=== PATIENT | female | born 1940 | race Caucasian/White ===

== ENCOUNTER 2016-12-17 00:19 | Inpatient (IN) | payer MEDICARE, OTHER ==
[2016-12-17] VITALS (10 sets, daily range): BP systolic 87–135; BP diastolic 36–80; PULSE 91–116; RESP 13–37; O2SAT 94–100
[~2016-12-17] VITALS: Ht 152.4 cm; Wt 70.8 kg
--- NOTE | 2016-12-17 00:29 | ED.REPORT ---
HPI-Abd Pain F 40 and Over Date of Service Dec 17, 2016 ED Provider: Chano Sierra MD Pt is a 76 year old female with a history of DM who presents to the ED with complaints of diffuse abdominal pain that started around 2300 this evening. She reports that she was at [facility] yesterday for elevated blood sugar, but she was asymptomatic at the time. Pt states that she is having some nausea associated with the abdominal pain, but denies any vomiting, diarrhea or any other symptoms. Nursing Notes Stated Complaint: ELEVATED BLOOD SUGAR Chief Complaint: Female Abdominal Pain Nursing Notes Reviewed: Yes Allergies: Coded Allergies: No Known Allergies (Unverified , 12/17/16) Scheduled Insulin Regular, Human (HUMulin-R U100 Insulin Vial) 100 Unit/1 Ml Vial 25 UNIT SUBQ TIDWM Levothyroxine (Levothyroxine) 50 Mcg Tablet 50 MCG PO DAILY Losartan Potassium (Losartan Potassium) 25 Mg Tablet 25 MG PO DAILY Metformin (Metformin) 850 Mg Tablet 850 MG PO TIDWM NPH, Human Insulin Isophane (HUMulin-N U100 Insulin Kwikpen) 100 Unit/1 Ml Insuln.pen 80 UNIT SUBQ BIDWM Pioglitazone (Pioglitazone) 15 Mg Tablet 15 MG PO DAILY Simvastatin (Simvastatin) 5 Mg Tablet 5 MG PO HS General Time Seen by MD: 00:23 Chief Complaint Abdominal pain Hx Obtained From: Patient Arrived By: Walk-in Sudden in Onset?: Yes Onset Occurred: Just prior to arrival Symptom Duration: Since onset Location: : Diffuse Quality: Painful Severity: Current: Mild Severity: Maximum: Moderate Similar Sx Previous: Yes Past Medical History Past Medical History Reports: Diabetes mellitus Ambulatory Status Independent Review of Systems Constitutional: Denies: Chills, Fever, Malaise, Weakness - generalized Respiratory: Denies: Non-productive cough, Shortness of breath, Wheezing Cardiovascular: Denies: Chest pain, Syncope GI: Reports: Abdominal pain, Nausea, Denies: Vomiting Female: Denies: Dysuria, Flank pain, Urinary urgency Musculoskeletal: Denies: Back pain, Extremity pain, Neck pain Complete sys rev & neg: except as marked. Physical Exam Vital Signs Vital Signs (First) Date Time Temp Pulse Resp B/P Pulse Ox O2 Delivery O2 Flow Rate FiO2 12/17/16 00:25 35.9 116 37 135/80 94 Room Air 12/17/16 01:57 3 Initial VS: Reviewed, Vital signs abnormal Head / Eyes: Atraumatic, Normocephalic, PERRL ENT: Mucous membranes moist, Conjunctiva normal, No scleral icterus Neck: Supple, Non-tender, Full range of motion Skin: Warm, Dry, No cyanosis Neurologic: Alert, Oriented, Nonfocal General/Constitutional: Awake, Alert Appearance / Presentation: Positive: Obese, Uncomfortable Respiratory / Chest: Atraumatic, Breath sounds NL, No respiratory distress Cardiovascular: Regular rhythm, Heart sounds NL, No gallop, No murmurs, No rubs Heart Rate / Rhythm: Positive: Tachycardia Abdomen: Atraumatic, Soft, No guarding, No rebound Diffusely tender Back: Atraumatic, Inspection NL Interpretation & Diagnostics Interpretation & Diagnostics: Lab findings consistent with severe DKA and probable sepsis. Lab Results Interpretation Result Diagram: 12/17/16 0037 12/17/16 0540 Test 12/17/16 00:37 12/17/16 01:37 White Blood Count 11.0th/mm3 (3.8-10.1) Red Blood Count 3.61mil/mm3 (3.90-5.20) Hemoglobin 12.3g/dL (12.0-15.6) Hematocrit 35.2% (35.0-46.0) Mean Corpuscular Volume 97.5fL (81-100) Mean Corpuscular Hemoglobin 34.1pg (27.0-35.0) Mean Corpuscular Hemoglobin Concent 34.9% (32.0-37.0) Red Cell Distribution Width 14.9% (12.3-15.4) Platelet Count 279bil/L (150-400) Neutrophils (%) (Auto) 69.2% (40-74) Lymphocytes (%) (Auto) 19.2% (14-46) Monocytes (%) (Auto) 6.5% (4-12) Eosinophils (%) (Auto) 0.1% (0-5) Basophils (%) (Auto) 0.5% (0-3) Band Neutrophils % 5% (1-5) Prothrombin Time 10.2sec (8.1-12.5) Prothromb Time International Ratio 0.95ratio D-Dimer 3.2mg/L (<0.50) Sodium Level 134mEq/L (134-144) Potassium Level 5.2mEq/L (3.5-5.2) Chloride Level 94mEq/L (97-108) Carbon Dioxide Level 3mmol/L (18-29) Blood Urea Nitrogen 43mg/dL (8-27) Creatinine 1.85mg/dL (0.57-1.00) Estimat Glomerular Filtration Rate 38mL/min (>59) Lactic Acid Level 4.0mmol/L (0.4-2.0) Calcium Level 8.3mg/dL (8.5-10.1) Magnesium Level 1.4mg/dL (1.6-2.6) Total Bilirubin 0.2mg/dL (0.0-1.2) Aspartate Amino Transf (AST/SGOT) 7U/L (0-50) Alanine Aminotransferase (ALT/SGPT) 15U/L (0-32) Alkaline Phosphatase 46U/L (25-165) Troponin T 0.010ug/L (0.0-0.011) Total Protein 6.1g/dL (6.4-8.4) Albumin 3.5g/dL (3.4-5.0) Lipase 128U/L (13-60) Urine Color Yellow (YELLOW) Urine Appearance Hazy (CLEAR,HAZY) Urine pH 5.5 (5.0-8.0) Urine Specific [place] 1.020 (1.003-1.035) Urine Protein 30mg/dL (NEG,TRACE) Urine Glucose (UA) >100mg/dL (NEGATIVE) Urine Ketones 15mg/dL (NEGATIVE) Urine Occult Blood Negative (NEGATIVE) Urine Nitrite Negative (NEGATIVE) Urine Bilirubin Negative (NEGATIVE) Urine Urobilinogen Normalmg/dL (NORMAL) Urine Leukocyte Esterase Negative (NEGATIVE) Urine RBC 0-2/hpf (0-2) Urine WBC 0-5/hpf (0-5) Urine Epithelial Cells Occasional/hpf (NONE-MOD) Urine Crystals Amorphous urates (NONE Urine Bacteria Few/hpf (NONE-FEW) Urine Hyaline Casts Rare/lpf (NONE) Urine Granular Casts Occasional (NONE SEEN) Urine Waxy Casts None seen (NONE SEEN) Urine Red Blood Cell Casts None seen (NONE SEEN) Urine White Blood Cell Casts None seen (NONE SEEN) Urine Mucus None seen (None Seen) Urine Trichomonas None seen (NONE SEEN) Urine Yeast None (NONE SEEN) Urinalysis Comment None Urine Culture Reflexed Not indicated Lab Results Interpretation: Blood Gas Report: pH: 6.907 pCO2: 19 pO2: 60.1 cHCO3: 3.6 cBase: -28.8 tHb: 12.2 sO2: 75.2 FCOHb: 0.8 ECG Interpretation ECG Interpretation: Sinus tachy - [address] depression, diffuse leads Time: 01:14 Interpreted by: ED physician CT Abd / Pelvis Interpretation Conclusion: Bubbles of air in the anterior abdominal wall and adjacent extraperitoneal tissues. This could be related to recent subcutaneous injections or other instrumentation. Please correlate clinically. No abscess in the soft tissues. Bowel pattern possibly consistent with constipation. Focally dilated distal pancreatic duct versus cystic lesion in the tail of the pancreas. Other findings as noted above. Study type: Abdominal CT no contrast Procedures Central Line Placement Procedure Performed by: ED physician (Dr. Antony) Consent / Setup / Site Prep: Informed consent provided, Consent from extension worker, Time-out performed, Oxygen administered, Pulse oximeter applied, front desk monitor applied, Hand hygiene observed, Standard surgical scrub, Max barrier precaution, Sterile drapes applied, Position Trendelenburg Skin Preparation Agent: Shurclens Local Anesthesia: Lidocaine 1% Side / Location / Ultrasound: Internal jugular right Catheter / Lumen / Technique: Triple lumen, Seldinger technique, Good blood return, Secured w catheter device Central Line Tip Location: Cath tip good position in the SVC Post-Procedure / Complications: Dressing placed, CXR neg for pneumothorax, Condition improved, Tolerated procedure well, Patient stable Re-Eval/Medical Decision Med Decision/Clinical Course 76-year-old female who has had elevated blood glucose last few days. She was seen yesterday at [facility] and treated for elevated glucose. She has subsequently developed shortness of breath and abdominal pain. She is found to be in severe DKA with a blood sugar of 685 and a pH of 6.9. Her white count was elevated at 11,000 and her lactic acid was elevated at 4.0, so sepsis was suspected, source unknown at this time. Cultures were done and she was started on Zosyn suspecting an abdominal source. Her d-dimer elevated at 2.3. She has a low GFR so we were unable to use contrast. CT scan of her abdomen showed some small areas of localized free air anteriorly, etiology uncertain. She was hydrated with 3 L of saline and continued to have hypotension in the 80 range. Central line was started by Dr. Antony and she was placed on Levaphed. Her case was discussed with Dr. Robert Thomason who will consult. She will be admitted to the CCU for further evaluation and treatment. The daughter is very aware of how seriously ill she is. We discussed her CODE STATUS. This has not been discussed in the past that the daughter is aware of and there is no documentation of the patient's wishes. The daughter will discuss it further with the family. Source of Hx: Old records Re-Evaluation/Progress : Time of Eval: 01:36 Re-Evaluation/Progress Note: Pt is rechecked and informed of her lab results. Her vitals remain stable. Consultation #1: Referral / Consult Name: Rodolfo Murray MD Consulted With: Hospitalist Call Returned at: 02:31 Surgery Assistant: Will see patient, Agrees with plan, Accepts admit Consultation #2: Referral / Consult Name: Robert Thomason MD Consulted With: Surgeon Call Returned at: 03:42 Surgery Assistant: Will see patient, Agrees with eval, Agrees with plan Counseled Regarding: Diagnosis, Lab results, Need for follow-up, When/why to return to ED Discharge & Departure Primary Impression: DKA (diabetic ketoacidoses) Diabetes mellitus type: other specified (including LEILA) Diabetes mellitus complication detail: without coma Qualified Code: E13.10 - Other specified diabetes mellitus with ketoacidosis without coma Additional Impression: Sepsis Sepsis type: sepsis due to unspecified organism Qualified Code: A41.9 - Sepsis, unspecified organism Disposition: Home Discharge Condition All VS Reviewed: Yes Condition: Stable Referrals: Radha Flynn PA-C (PCP) Crit Care Except Billable Proc Time Spent: 75-104 minutes Services Performed: Patient management by me, Time spent at bedside, Reviewing test results, Reviewing imaging, Discussing patient care, Documentation in record, Time with fam/surrogate Critical Care Notes: Patient with severe DKA and sepsis requiring 1-1 evaluation and admission to the CCU. Scribe Attestation Portions of this note were transcribed by Corazon Taylor. I, Dr. Sierra personally performed the history, physical exam and medical decision-making; I reviewed and confirmed the accuracy of the information in the transcribed note. Signed by: Xavi Gilman, 12/16/2016 [Time] copies to: Radha Flynn PA-C, Howard L MD Dec 17, 2016 00:29 ANGELA TAYLOR Dec 17, 2016 00:39
[2016-12-17] MEDS ORDERED: 0.9% Sodium Chloride 1,000 ML IV ONE ×2 (00:33→02:10)
[2016-12-17] MEDS ORDERED: Insulin Human REGular-Omnicell 100 Unit/mL SUBQ ONE (00:35)
[2016-12-17] MEDS ORDERED: Ondansetron 2 mg/mL 2 mL Inj IVPUSH PRN ×2 (00:35→02:35)
[2016-12-17] MEDS ORDERED: Insulin Human REGular-Omnicell 100 Unit/mL IV ONE (00:40)
[2016-12-17] MEDS: HYDROmorphone 0.5 mg/0.5 mL iSecure Syringe IVPUSH PRN ×2 (00:45→01:20)
[2016-12-17 00:46] LABS: Mean Corpuscular Hemoglobin 34.1 pg (27.0-35.0); Mean Corpuscular Volume 97.5 fL (81-100); Platelet Count 279 bil/L (150-400)
[2016-12-17] MEDS ORDERED: INSU100V28 SUBQ (00:55)
[2016-12-17] MEDS ORDERED: NPH,100I SUBQ (00:55)
[2016-12-17] MEDS ORDERED: LOSA25TA21 PO (00:57)
[2016-12-17] MEDS ORDERED: LEVO50TA6 PO (00:57)
[2016-12-17] MEDS ORDERED: PIOG15TA21 PO (00:57)
[2016-12-17] MEDS ORDERED: SIMV5TAB7 PO (00:57)
[2016-12-17] MEDS ORDERED: METF850T2 PO (00:57)
[2016-12-17] MEDS: 0.9% Sodium Chloride 1,000 ML IV SCH ×8 (01:00→23:45)
[2016-12-17 01:04] LABS: INR 0.95 ratio
[2016-12-17] MEDS ORDERED: Piperacillin-Tazo 3.375 Gm Inj 3.375 GM in Dextrose 5% Minibag Plus 50 ML IV ONE (01:20)
[2016-12-17 01:21] LABS: Magnesium 1.4 mg/dL (1.6-2.6)
[2016-12-17 01:31] LABS: NEUTROPHILS % (AUTO) 69.2 % (40-74)
[2016-12-17 01:32] LABS: BASOPHILS % (AUTO) 0.5 % (0-3); EOSINOPHILS % (AUTO) 0.1 % (0-5); MONOCYTES % (AUTO) 6.5 % (4-12)
[2016-12-17] MEDS ORDERED: Magnesium Sulf 2 Gm/50mL Water 2 GM in IV Premix 1 EACH IV ONE (01:35)
[2016-12-17] MEDS ORDERED: D5W1/2NS 1,000 mL IV PRN (01:35)
[2016-12-17] MEDS ORDERED: Iohexol 300 mg/mL 30 mL Inj PO ONE (01:35)
[2016-12-17 01:46] LABS: APPEARANCE,URINE HAZY (CLEAR,HAZY); COLOR,URINE YELLOW (YELLOW); OCCULT BLOOD,URINE NEGATIVE (NEGATIVE); PH,URINE 5.5 (5.0-8.0); UROBILINOGEN,URINE NORMAL (NORMAL)
[2016-12-17] MEDS: Insulin Human REGular Inj 100 UNIT in 0.9% Sodium Chloride 100 ML IV SCH ×3 (02:08→17:46)
--- NOTE | 2016-12-17 02:09 | ABG ---
DateTimeAnalyzed 02:01:00 -_ pH ____6.907 - pCO2 ___19.1__ -mmHg pO2 ___60.1__ -mmHg HCO3- ____3.6__ -mmol/L ABE __-28.8__ -mmol/L tHb ___12.2__ -g/dL O2Hb ___73.6__ -% COHb ____0.8__ -% MetHb ____1.3__ -% sO2 ___75.2__ -% FIO2 ___32.0__ -% Drawn By _LAB TECH - Date/Time Notified____ 02:08:00 -_ Liter_Flow ____3.0__ -L/min Oxygen Device 1 __CANNULA - Notified Whom DR LEIBRAND - B 764 -mmHg tO2 ___12.6__ -Vol% Edgardo test N/A -
[2016-12-17] MEDS ORDERED: Sodium Bicarb 8.4% Inj 150 MEQ in Dextrose 5% 1,000 ML IV SCH (02:15)
[2016-12-17] MEDS ORDERED: Polyethylene Glycol (PEG) 17 Gm Powder PO PRN (02:35)
[2016-12-17] MEDS ORDERED: Senna-Docusate 8.6-50 mg Tablet PO PRN (02:35)
[2016-12-17] MEDS ORDERED: Alum-Mag Hydrox-Simeth 30 mL Suspension PO PRN (02:35)
--- NOTE | 2016-12-17 03:27 | PCM.HPMED ---
Subjective Date of Service Dec 17, 2016 Primary Provider: Admitting Physician: Primary Care Physician: Radha Flynn PA-C Attending Physician: Admit Status: From the Emergency Department, Full Admit, Critical Care Chief Complaint: Acute abdominal pain with uncontrolled diabetes History of Present Illness: Donna Zuluaga is a 76 year old female with Diabetes, Hypertension, Dyslipidemia and Hypothyroidism who presents to [facility] emergency department with complaints of abdominal pain. Patient reporting the abdominal pain is diffuse that started around 2300 this evening. No radiation and no associated symptoms such as diarrhea, no nausea or vomiting. She barely ate anything in the last 3 days. No fever or chills. Patient was notes to have some confusion and lethargy, sleeping much of the day today. She reports that she was at [facility] yesterday for elevated blood sugar, but she was asymptomatic at the time. Pt states that she is having some nausea associated with the abdominal pain, but denies any vomiting, diarrhea. Records from [facility] reviewed, showed patient has been having uncontrolled blood sugars since the beginning of November with BG up to 500 range. Medications were changed with insulin dosing increased after her meals as well as adding Actos. Daughter who lives with the patient reports that the patient manages her own insulin and is compliant without missing any doses. Case discussed with Dr Sierra, IV fluids and CT scan without contrast ordered due to complaints and lactic acidosis noted. IV fluids and Insulin drip also initiated for DKA treatment Review of Systems: Pertinent positives as noted in HPI. All other systems were reviewed and are negative Allergies Coded Allergies: No Known Allergies (Unverified , 12/17/16) Home Medications From [facility], not yet confirmed Donna Zuluaga. [id number] 1940 12/08/2016 10:20 AM 10/28 Actos 15 mg tablet take 1 tablet by oral route every day calcium 500 mg Tab 500 mg 2x day Cozaar 25 mg tablet take 1 tablet by oral route every day for high blood pressure. Humulin N 100 unit/mL subcutaneous suspension inject by subcutaneous route 48 units every morning and 58 units every evening for diabetes. Humulin R 100 unit/mL injection solution inject by subcutaneous route 25 units at breakfast, 12 at lunch, 10 at dinner, 8 a snacks, and 6 for blood sugars > 200. metformin 850 mg tablet take 1 tablet (850MG) by ORAL route 3 times every day with morning and evening meals for diabetes. simvastatin 20 mg tablet take 0.5 tablet (10MG) by ORAL route every day in the evening for high cholesterol. Synthroid 137 mcg tablet take 1 tablet (137MCG) by ORAL route every day for thyroid. Vitamin D 1,000 unit Tab 2 tablets a day. PMH Vitamin D deficiency Hypothyroidism Hyperlipidemia Type 2 diabetes mellitus Chronic Kidney disease Hypertension Osteopenia . Surgical History cataract surgery Family History Father had Myocardial infarction Brother and daughter and son have diabetes Brother on dialysis Social History Hx Alcohol Use: No Hx Substance Use: No Hx Tobacco Use: No Smoking Status: Never Smoker Living Arrangement: with Family Exam Vital Signs Vital Sign - Last Date Time Temp Pulse Resp B/P Pulse Ox O2 Delivery O2 Flow Rate FiO2 12/17/16 01:57 106 29 97/48 100 Nasal Cannula 3 12/17/16 00:25 35.9 Intake and Output 12/16/16 12/16/16 12/17/16 Cumulative From/Thru 14:59 22:59 06:59 12/17/16 00:25 - 12/17/16 00:35 Intake Total 1000 ml 1000 ml Balance 1000 ml 1000 ml Intake IV Total 1000 ml 1000 ml Exam General: Alert, Oriented X3, Cooperative, No acute Distress but appears lethargic Eyes: PERRLA, Scleral Anicteric Mouth: Mouth Normal, Mucous Membranes dry Neck: Supple, no Thyromegaly, trachea central. Chest & Lungs: Clear to auscultation & percussion, No adventitious breath sounds, no crackles, no wheeze Cardiovascular: Normal S1, Normal S2, No Murmurs/Rubs/Gallops, Regular Rate/ Rhythm, (No JVD, no peripheral edema) Pulses: Radial (present and equal), Dorsalis Pedi (present and equal) Abdomen: Soft, Non-tender, Non-distended, Normoactive bowel tones. Musculoskeletal: Unremarkable. Normal range of motion, no swollen or erythematous joints Extremities: No edema, no cyanosis, no clubbing. Skin: No rashes. Warm and dry, no erythematous areas Neurological: Grossly neurologically intact, has generalized weakness, Normal Speech, Sensation Intact Lymphatic: Lymph nodes Cervical and Axillary not palpable. Lab and Diagnostics Labs Laboratory Tests Test 12/17/16 00:37 12/17/16 01:37 2/25/17 01:46 White Blood Count 11.0th/mm3 (3.8-10.1) Red Blood Count 3.61mil/mm3 (3.90-5.20) Hemoglobin 12.3g/dL (12.0-15.6) Hematocrit 35.2% (35.0-46.0) Mean Corpuscular Volume 97.5fL (81-100) Mean Corpuscular Hemoglobin 34.1pg (27.0-35.0) Mean Corpuscular Hemoglobin Concent 34.9% (32.0-37.0) Red Cell Distribution Width 14.9% (12.3-15.4) Platelet Count 279bil/L (150-400) Neutrophils (%) (Auto) 69.2% (40-74) Lymphocytes (%) (Auto) 19.2% (14-46) Monocytes (%) (Auto) 6.5% (4-12) Eosinophils (%) (Auto) 0.1% (0-5) Basophils (%) (Auto) 0.5% (0-3) Band Neutrophils % 5% (1-5) Prothrombin Time 10.2sec (8.1-12.5) Prothromb Time International Ratio 0.95ratio D-Dimer 3.2mg/L (<0.50) Sodium Level 134mEq/L (134-144) Potassium Level 5.2mEq/L (3.5-5.2) Chloride Level 94mEq/L (97-108) Carbon Dioxide Level 3mmol/L (18-29) Blood Urea Nitrogen 43mg/dL (8-27) Creatinine 1.85mg/dL (0.57-1.00) Estimat Glomerular Filtration Rate 38mL/min (>59) Glucose Level 685mg/dL (60-99) Lactic Acid Level 4.0mmol/L (0.4-2.0) Calcium Level 8.3mg/dL (8.5-10.1) Magnesium Level 1.4mg/dL (1.6-2.6) Total Bilirubin 0.2mg/dL (0.0-1.2) Aspartate Amino Transf (AST/SGOT) 7U/L (0-50) Alanine Aminotransferase (ALT/SGPT) 15U/L (0-32) Alkaline Phosphatase 46U/L (25-165) Troponin T 0.010ug/L (0.0-0.011) Total Protein 6.1g/dL (6.4-8.4) Albumin 3.5g/dL (3.4-5.0) Lipase 128U/L (13-60) Urine Color Yellow (YELLOW) Urine Appearance Hazy (CLEAR,HAZY) Urine pH 5.5 (5.0-8.0) Urine Specific [place] 1.020 (1.003-1.035) Urine Protein 30mg/dL (NEG,TRACE) Urine Glucose (UA) >100mg/dL (NEGATIVE) Urine Ketones 15mg/dL (NEGATIVE) Urine Occult Blood Negative (NEGATIVE) Urine Nitrite Negative (NEGATIVE) Urine Bilirubin Negative (NEGATIVE) Urine Urobilinogen Normalmg/dL (NORMAL) Urine Leukocyte Esterase Negative (NEGATIVE) Urine RBC 0-2/hpf (0-2) Urine WBC 0-5/hpf (0-5) Urine Epithelial Cells Occasional/hpf (NONE-MOD) Urine Crystals Amorphous urates (NONE Urine Bacteria Few/hpf (NONE-FEW) Urine Hyaline Casts Rare/lpf (NONE) Urine Granular Casts Occasional (NONE SEEN) Urine Waxy Casts None seen (NONE SEEN) Urine Red Blood Cell Casts None seen (NONE SEEN) Urine White Blood Cell Casts None seen (NONE SEEN) Urine Mucus None seen (None Seen) Urine Trichomonas None seen (NONE SEEN) Urine Yeast None (NONE SEEN) Urinalysis Comment None Urine Culture Reflexed Not indicated Microbiology 12/17/16 Blood Culture, Received Pending Result Diagram: 12/17/167 12/17/16 0037 X-Rays, CTs and MRIs CT Abd / Pelvis Interpretation Conclusion: Bubbles of air in the anterior abdominal wall and adjacent extra peritoneal tissues. This could be related to recent subcutaneous injections or other instrumentation. Please correlate clinically. No abscess in the soft tissues. Bowel pattern possibly consistent with constipation. Focally dilated distal pancreatic duct versus cystic lesion in the tail of the pancreas. Other findings as noted above. Study type: Abdominal CT no contrast Read by Christopher gomez radiologist Assessment & Plan Donna Zuluaga is a 76 year old female with Diabetes, Hypertension, Dyslipidemia and Hypothyroidism who presents to [facility] emergency department with complaints of diffuse abdominal pain 1. Hyperglycemia secondary to possible Diabetic Ketoacidosis. Present on admission Suspect an infection is the underlying cause and trigger. Possible non compliance with insulin regimen. Differential diagnosis includes Hyperosmolar Hyperglycemic state. - Abdominal pain could be from Diabetic ketoacidosis. Lipase levels elevated but does not meet Blackstone criteria for diagnosing acute pancreatitis - IV fluids resuscitation, Normal saline and convert to D51/2 NS when Blood glucose < 250 - monitor Anion gap with check every 4 hours - continue Insulin drip till anion gap closes (Anion gap < 12) - prior to stopping Insulin drip, Lantus will be given 1-2 hours prior - holding Metformin and Actos - monitor electrolytes such as Potassium and Phosphate - consider switch insulin regimen from Humulin to Lantus - Endocrinology consult as outpatient 2. Lactic acidosis with metabolic acidosis. Present on admission Suspicion for Gastrointestinal infection. Metformin also causes lactic acidosis - trending levels till normal - Abdominal CT scan pending - consider bicarb addition if acidosis does not improve - empiric antibiotics with Zosyn IV 3. Possible Acute Kidney injury on Chronic Kidney disease. Present on admission Baseline Creatinine 1.04-1.11. Chronic issue related to Diabetic nephropathy - acute issue related to pre renal azotemia due to hypovolemia - avoid Nephrotoxic insults including contrast studies - monitor urine output 4. Hypertension Low range of normal likely due to hypovolemia - holding all antihypertensive at this time 5. Hyperlipidemia - continue Simvastatin 10 mg HS 6. Hypothyroidism - continue Synthroid 137 mcg daily - Acetaminophen as needed for mild pain/fever/headache - Bowel regimen as needed - Antiemetic as needed Patient admitted under inpatient status with expected length of stay > 2 midnights for severity of present symptoms, complexities of treatment plan and risk for adverse event . VTE Prophylaxis: Sub-Q Heparin (Unfractionated) Resuscitation Status: CPR: Attempt Resuscitation Rodolfo Murray MD Dec 17, 2016 03:02
[2016-12-17] MEDS ORDERED: Norepinephrine 8,000 mCg/250 mL NS Premix IV ONE ×4 (03:32→22:53)
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
--- NOTE | 2016-12-17 08:10 | CONS ---
[address] [address] CONSULTATION REPORT PATIENT: ADE GARRETT : 1940 MR#: [id number] ADMIT: 12/17/2016 JOB ID: [id number] DATE OF SERVICE: 12/17/2016 SURGICAL CONSULTATION: CHIEF COMPLAINT: Abnormal CT scan and abdominal pain. HISTORY OF PRESENT ILLNESS: The patient is a 76-year-old female, who was admitted to the hospital overnight due to diabetic ketoacidosis. The patient has had poor control of her blood sugar for about a month and she has been having lethargy and weakness for the past two weeks. The patient was seen at [facility] yesterday and was released. The patient re-presented due to ongoing lethargy and weakness and new abdominal pain. The patient underwent a CT scan of the abdomen and pelvis last night through the emergency department and it demonstrated some air bubbles in the subcu abdominal wall anteriorly. We were consulted by the hospitalist service. This morning, the patient denies any abdominal pain. The pain has resolved. There is no nausea or vomiting. The CT scan does suggest some stool in the colon. The patient is not sure when she last had a bowel movement. PAST MEDICAL HISTORY: 1. Diabetes. 2. Hypothyroidism. 3. Chronic kidney disease. 4. Hypertension. 5. Osteopenia. 6. Cataract surgery. MEDICATIONS AT HOME: Include Actos, Cozaar, insulin, metformin, simvastatin, Synthroid. ALLERGIES: None. SOCIAL HISTORY: The patient does live in [place] and has a daughter and a son. FAMILY HISTORY: Positive for myocardial infarction and diabetes. REVIEW OF SYSTEMS: Positive for the lethargy and weakness and abdominal pain since yesterday which has since resolved. All other systems reviewed were negative. PHYSICAL EXAMINATION: The patient is currently in the intensive care unit in no acute distress. BMI is 25.7. Her temperature is 36, blood pressure 101/44, pulse is 92, respirations 16. Head is normocephalic, atraumatic. There is no scleral icterus. Neck is supple. Heart has a regular rate. Lungs are clear. Abdomen is mildly obese but there are some ecchymoses from her subcu injections but the abdomen is completely soft, and there is no tenderness with palpation or shaking of her abdomen. Extremities shows no clubbing. There is no cyanosis. Neurologically, the patient is slightly lethargic but she does awake and does answer questions. LABORATORY EXAMINATION: Last night showed a white blood count of 11, hematocrit 35.2, platelet count is 279. Her sodium was 134, potassium 5.2, creatinine 1.85. Glucose was 685. Lipase was 128. Total bilirubin 0.2. Her INR was 0.95. I do not have the official dictations of her CT scan, but there was mentioning of subcu air bubbles in the anterior abdominal wall in the extraperitoneal location. ASSESSMENT: This is a 76-year-old female with diabetic ketoacidosis who had abdominal pain yesterday but has since resolved. The abdominal pain could be attributed to the diabetic ketoacidosis or the mild elevation of the lipase or due to her constipation. She does not have a surgical abdomen at this time. The subcutaneous air could be due to her subcu insulin injections. I do not believe she will require surgical care. We will sign off at this point, and please reconsult general surgery if the need arises.
--- NOTE | 2016-12-17 09:06 | DRSVH ---
PROCEDURE: X-RAY CHEST ONE VIEW, PORTABLE ([id number]) INDICATIONS: post central line TECHNIQUE: One view of the chest was acquired. COMPARISON: None. FINDINGS: Surgical changes and devices: Right internal jugular central line placed superimposed on the expected region of the superior vena cava, mid SVC level. Lungs and pleura: No pleural effusions or pneumothorax. Lungs are clear. Mediastinum: Mediastinal contours appear normal. Heart size is normal. Bones and chest wall: No suspicious bony lesions. Overlying soft tissues appear unremarkable. IMPRESSION: Normal central in position without pneumothorax. Dictated by: Claude Mulliagn M.D. on 12/17/2016 at 9:05 Approved by: Claude Mulligan M.D. on 12/17/2016 at 9:05
[2016-12-17] MEDS: Piperacillin-Tazo 3.375 Gm Inj 3.375 GM in Dextrose 5% Minibag Plus 50 ML IV SCH ×2 (10:05→22:34)
[2016-12-17] MEDS: Heparin 5,000 Unit/mL Inj SUBQ SCH ×2 (10:08→17:28)
--- NOTE | 2016-12-17 10:23 | ABG ---
DateTimeAnalyzed 10:17:00 -_ pH ____7.197 - 7.350 7.450 pCO2 ___21.3__ -mmHg 35.0 45.0 pO2 102 -mmHg 69.0 116 HCO3- ____8.0__ -mmol/L 22.0 26.0 ABE __-18.8__ -mmol/L -2.0 2.0 tHb ___12.1__ -g/dL O2Hb ___94.9__ -% COHb ____1.3__ -% MetHb ____1.1__ -% sO2 ___97.2__ -% FIO2 ___21.0__ -% Drawn By RC - Date/Time Notified____ 10:22:00 -_ Notified By RC - Notified Whom UBALDO LISETH, MD -___ B 763 -mmHg tO2 ___16.2__ -Vol% Edgardo test _Positive -
--- NOTE | 2016-12-17 10:25 | DRSVH ---
PROCEDURE: CT ABDOMEN AND PELVIS WITHOUT CONTRAST ([id number]) INDICATIONS: abdominal pain, septic TECHNIQUE: Noncontrast 5 mm thick sections acquired from the diaphragms to the symphysis. 5 mm coronal and sagi ttal reformats were then performed. For radiation dose reduction, the following was used: automated exposure control, adjustment of mA and/or kV according to patient size. COMPARISON: [facility], CR, CHEST 1VW, 07/30/2015, 17:53. [facility], CR, XR ABD ACUTE SERIES 3VW, 12/17/2016, 0:41. [facility], CR, XR CHEST 1VW (PORTABLE), 2016, 2:54. FINDINGS: Image quality: Reduced by absence of oral and intravenous contrast. ABDOMEN: Lung bases: Lung bases are clear. Heart size is normal. Solid organs: Liver and spleen are normal in size. Gallbladder is poorly visualized but likely is p resent given absence of surgical clips at the gallbladder fossa area.. Kidney show no hydronephrosis and no nephrolithiasis. The pancreas is quite abnormal, with the glandular parenchyma virtually completely fatty atrophied. The pancreatic duct from the pancreatic neck towards the pancreatic tail is abnormally dilated measur ing up to 1.1 cm in maximal dimension associated with a large dense calculus within the pancreatic du ct at the pancreatic neck level measuring up to 1.2 cm AP and 2.1 cm transverse. This has a radioden sity of 1666 Hounsfield units. At the pancreatic tail there is a 1.3 and 2.0 cm set of cystic struct ures in the expected course of the pancreatic duct. Peritoneum and bowel: Unenhanced bowel loops demonstrate normal wall thickness and caliber. No free fluid. There may be a slight amount of free air at the anterior border of the midline of the abdome n/pelvis junction, above the umbilicus, where within the rectus sheath in the immediate adjacent subc utaneous fat several gas bubbles can be seen and at one point a communication between what appears to be in the anterior peritoneal gas bubble and the subcutaneous fat may be present (centered on series 2, image 53). Nodes and vessels: No retroperitoneal or mesenteric adenopathy by size criteria. Aorta and inferior vena cava are normal in caliber. Miscellaneous: No ventral hernias. PELVIS: Genitourinary: Bladder wall thickness is normal. A Levy catheter empties the bladder lumen. Miscellaneous: No inguinal hernias or adenopathy. Bones: No suspicious bony lesions. No vertebral body compression fractures. IMPRESSION: 1. The study is significantly limited in anatomic detail by the absence of oral and intravenous cont rast. With this qualification no definite underlying malignancy is seen. No definite focus of infec tion is found. 2. There is an unusual finding of several gas bubbles within the subcutaneous fat and the rectus she ath of the low abdomen/pelvis junction area, with possible small bubble of gas within the peritoneal space immediately adjacent. Please correlate for whether some form of lacerating injury has occurred in this area, versus surgical intervention or even medication injection into that area. 3. Throughout the abdomen and pelvis there is no sign of abscess formation. Colonic obstipation is present bilaterally. 4. There is an unusual appearance of the pancreas where the glandular parenchyma is virtually entire ly omentum or sized into fat. The pancreatic duct is prominently distended at 1 cm through the pancr eatic body and tail, secondary to a large ovoid calculus measuring up to 1.2 x 2.1 cm. Through the p ancreatic tail 2 separate cystic structures can be seen, relatively small in size and likely sidebran ch dilatations of the pancreatic ducts. This area could be easily followed by noncontrast CT scannin g to assess for roll changer time. Gastroenterology consultation may be warranted given the large valerio creatic ductal calculus identified. Dictated by: Claude Mulligan M.D. on 12/17/2016 at 10:12 Approved by: Claude Mulligan M.D. on 12/17/2016 at 10:24
--- NOTE | 2016-12-17 11:19 | DRSVH ---
PROCEDURE: X-RAY ACUTE ABDOMINAL SERIES ([id number]) INDICATIONS: abd pain TECHNIQUE: One view chest and two views of the abdomen were acquired. COMPARISON: None. FINDINGS: Surgical changes and devices: None. Chest: Lungs are clear. Heart size is normal. No pleural effusions. No pneumoperitoneum. Abdomen: Bowel gas pattern is normal except for moderate colonic obstipation. No suspicious calcifi cations. Visualized solid organ contours appear normal. Bones: No suspicious bony lesions. IMPRESSION: Colonic obstipation, no free air seen. Dictated by: Claude Mulligan M.D. on 12/17/2016 at 11:18 Approved by: Claude Mulligan M.D. on 12/17/2016 at 11:18
--- NOTE | 2016-12-17 13:02 | NUR ---
NUTRITION ASSESSMENT: ASSESS:76 YO female admitted with acute abdominal pain and DKA. Infection suspected related to hyperglycemia, lactic acidosis with metabolic acidosis. There are also extensive family dynamics that have created significant stress for the patient. She has received diabetes education in our outpatient setting in February 2013 that was well received, per review of documentation. A1c ordered today and is pending at this time. The patient is somnolent and not appropriate for diabetes education at this time. PMHx:Vitamin D deficiency, hypothyroidism, dyslipidemia, type 2 diabetes, CKD, HTN, osteopenia. DIET:NPO. LABS: Reviewed. CO2 10, BUN 96 Cr 1.96, Glu 358, A1c pending, Lactic Acid 3.6, Ca 7.5. MEDICATIONS: Reviewed. Insulin. NUTRITION FOCUSED PHYSICAL ASSESSMENT: GI symptoms / stool: Smear stool noted.John: 15 Skin Integrity: No issues reported. ANTHROPOMETRICS: Current Wt: 59.6 kgBMI: 25.0 kg/m2. IBW: 45.5 kg (131.1% IBW) ESTIMATED NEEDS (CCU): Calories: 1490 - 1788 kcal (25 - 30 kcal / kg BW) Protein: 48 - 89 g protein (1.5 - 2.0 g / kg BW) NUTRITION DIAGNOSIS: 1)Altered nutrition-related labs related to hyperglycemia, DKA, as evidenced by glucose 358, A1c pending. INTERVENTION: 1) Once patient is appropriate, will offer inpatient diabetes education. MONITOR/EVALUATE: Diet advance / tolerance, PO intake, labs, GI/nutrition status. Follow up per moderate nutrition risk guidelines.
--- NOTE | 2016-12-17 13:49 | NUR ---
Social Work: Initial Assessment D: Per EMR review, pt is a 76 year old female admitted for DKA, Sepsis. Pt is Medicare with [employer]; pt has no LTC insurance or VA Benefits. PCP is Radha Flynn PA-C. NOK is Nory Ruano, dtr, . Advanced directives not completed- information provided to pt's daughter. Readmit score not entered at this time. ENTERPRISE RESOURCE PLANNING CONSULTANT met with pt's daughter at bedside. Pt resting at this time. Sw role explained and contact info provided. See initial assessment. Pt lives at home with her spouse and daughter. Pt is I with ADLs and uses no DME. Pt has never had HH or half-way/rehab. They live in a single story home where pt and daughter are caregiver for pt's with Alzheimers. Dtr is primary contact. Dtr states that the pt will refuse any recommendation for longterm and that the family expects to take her home when ready. ENTER[employer] PLANNING CONSULTANT provided HH Choice List for family to review in anticipation that pt may require some home RN or PT. They are reviewing this. A: Pt who is from home with family and formerly I with ADLs P: Evolving; ENTERPRISE RESOURCE PLANNING CONSULTANT to continue to follow and assist with safe discharge planning as pt's clinical course progresses. SAMANTHA Marks Addendum: 12/17/16 at 1355 by ELLA BARAJAS SS Amended: Links added.
--- NOTE | 2016-12-17 16:19 | PCM.PNMED ---
Subjective Date of Service Dec 17, 2016 Subjective Donna Zuluaga is a 76 year old female with Diabetes, Hypertension, Dyslipidemia and Hypothyroidism who presents to [facility] emergency department with complaints of abdominal pain. Patient reporting the abdominal pain is diffuse that started around 2300 this evening. No radiation and no associated symptoms such as diarrhea, no nausea or vomiting. She barely ate anything in the last 3 days. No fever or chills. Patient was notes to have some confusion and lethargy, sleeping much of the day today. She reports that she was at [facility] yesterday for elevated blood sugar, but she was asymptomatic at the time. Pt states that she is having some nausea associated with the abdominal pain, but denies any vomiting, diarrhea. Records from [facility] reviewed, showed patient has been having uncontrolled blood sugars since the beginning of November with BG up to 500 range. Medications were changed with insulin dosing increased after her meals as well as adding Actos. Daughter who lives with the patient reports that the patient manages her own insulin and is compliant without missing any doses. Patient reports difficulty controlling blood sugars for 4 weeks. After two weeks of elevated Blood sugars on home monitor of between 400 and 600 patient visited her primary care PA Radha Flynn and her Regular and NPH were adjusted and Actos was added to her regimen, which included metformin. Patients daughter, who lives with her provided details. She states there was no inciting event 4 weeks ago. She denies illness, injury, change in medications, change in diet. The patient was not ill but she did fell tired around the time her blood sugars began to be uncontrolled, 4 weeks ago. Exam Vital Signs Vital Sign - Last Date Time Temp Pulse Resp B/P Pulse Ox O2 Delivery O2 Flow Rate FiO2 12/17/16 12:16 35.7 95 23 95/36 100 Room Air 12/17/16 08:00 1.00 Intake and Output 12/16/16 12/16/16 12/17/16 Cumulative From/Thru 15:00 23:00 07:00 12/17/16 00:25 - 12/17/16 04:30 Intake Total 2000 ml 2000 ml Balance 2000 ml 2000 ml Intake IV Total 2000 ml 2000 ml Exam General: Alert, Oriented X3, Cooperative, No acute Distress but appears lethargic Eyes: PERRLA, Scleral Anicteric Mouth: Mouth Normal, Mucous Membranes dry Neck: Supple, no Thyromegaly, trachea central. Chest & Lungs: Clear to auscultation & percussion, No adventitious breath sounds, no crackles, no wheeze Cardiovascular: Normal S1, Normal S2, No Murmurs/Rubs/Gallops, Regular Rate/ Rhythm, (No JVD, no peripheral edema) Pulses: Radial (present and equal), Dorsalis Pedi (present and equal) Abdomen: Soft, Non-tender, Non-distended, Normoactive bowel tones. Musculoskeletal: Unremarkable. Normal range of motion, no swollen or erythematous joints Extremities: No edema, no cyanosis, no clubbing. Skin: No rashes. Warm and dry, no erythematous areas Neurological: Grossly neurologically intact, has generalized weakness, Normal Speech, Sensation Intact Lymphatic: Lymph nodes Cervical and Axillary not palpable. IVs and Medications Medications Reviewed: Medications were reviewed in detail Lab and Diagnostics Result Diagram: 12/17/16 0037 12/17/16 1500 X-Rays, CTs and MRIs CT Abd / Pelvis Interpretation Conclusion: Bubbles of air in the anterior abdominal wall and adjacent extra peritoneal tissues. This could be related to recent subcutaneous injections or other instrumentation. Please correlate clinically. No abscess in the soft tissues. Bowel pattern possibly consistent with constipation. Focally dilated distal pancreatic duct versus cystic lesion in the tail of the pancreas. Other findings as noted above. Study type: Abdominal CT no contrast Read by [facility] radiologist CT ABDOMEN AND PELVIS WITHOUT CONTRAST ABDOMEN: The pancreas is quite abnormal, with the glandular parenchyma virtually completely fatty atrophied. The pancreatic duct from the pancreatic neck towards the pancreatic tail is abnormally dilated measuring up to 1.1 cm in maximal dimension associated with a large dense calculus within the pancreatic duct at the pancreatic neck level measuring up to 1.2 cm AP and 2.1 cm transverse. This has a radiodensity of 1666 Hounsfield units. At the pancreatic tail there is a 1.3 and 2.0 cm set of cystic structures in the expected course of the pancreatic duct. Peritoneum and bowel: Unenhanced bowel loops demonstrate normal wall thickness and caliber. No free fluid. There may be a slight amount of free air at the anterior border of the midline of the abdomen/pelvis junction, above the umbilicus, where within the rectus sheath in the immediate adjacent subcutaneous fat several gas bubbles can be seen and at one point a communication between what appears to be in the anterior peritoneal gas bubble and the subcutaneous fat may be present (centered on series 2, image 53). IMPRESSION: 1. The study is significantly limited in anatomic detail by the absence of oral and intravenous contrast. With this qualification no definite underlying malignancy is seen. No definite focus of infection is found. 2. There is an unusual finding of several gas bubbles within the subcutaneous fat and the rectus sheath of the low abdomen/pelvis junction area, with possible small bubble of gas within the peritoneal space immediately adjacent. Please correlate for whether some form of lacerating injury has occurred in this area, versus surgical intervention or even medication injection into that area. 3. Throughout the abdomen and pelvis there is no sign of abscess formation. Colonic obstipation is present bilaterally. 4. There is an unusual appearance of the pancreas where the glandular parenchyma is virtually entirely omentum or sized into fat. The pancreatic duct is prominently distended at 1 cm through the pancreatic body and tail, secondary to a large ovoid calculus measuring up to 1.2 x 2.1 cm. Through the pancreatic tail 2 separate cystic structures can be seen, relatively small in size and likely sidebranch dilatations of the pancreatic ducts. This area could be easily followed by noncontrast CT scanning to assess for change management time. Gastroenterology consultation may be warranted given the large pancreatic ductal calculus identified. Dictated by: Claude Mulligan M.D. on 12/17/2016 at 10:12 Additional Diagnostics [facility] DateTimeAnalyzed 10:17:00 -_ pH ____7.197 - 7.350 7.450 pCO2 ___21.3__ -mmHg 35.0 45.0 pO2 102 -mmHg 69.0 116 HCO3- ____8.0__ -mmol/L 22.0 26.0 Assessment & Plan Donna Zuluaga is a 76 year old female with Diabetes, Hypertension, Dyslipidemia and Hypothyroidism who presents to [facility] emergency department with complaints of diffuse abdominal pain and 4 weeks of elevated blood sugars (400-600.) at home with no obvious inciting event. 1. Acute pancreatitis, present on admission. Active. - Abdominal pain on admission, elevated lipase, CT abdomen as above. possibly 2nd to infx vs pancreatic burn out. - Empiric Abx started in the ED - zosyn. - Continue IV Fluids. NPO for now. - IV dilaudid. 2. Diabetic Ketoacidosis. Present on admission. Active. - Possibly 2nd to pancreatic burn out or pancreatitis. - C-peptide pending. - ABG as above. - IV fluids resuscitation, Normal saline and convert to D51/2 NS when Blood glucose < 250 - Monitor Anion gap with check every 4 hours - Continue Insulin drip till anion gap closes (Anion gap < 12) - Prior to stopping Insulin drip, Lantus will be given 1-2 hours prior - Holding Metformin and Actos - BMP and lactic acid Q2H. - Endocrinology consult as outpatient 3. Lactic acidosis with metabolic acidosis. Present on admission Suspicion for Gastrointestinal infection. Metformin also causes lactic acidosis - Trending levels till normal - Abdominal CT scan - Empiric antibiotics with Zosyn IV 4. Acute Kidney injury on Chronic Kidney disease. Present on admission. Active. - Baseline Creatinine 1.04-1.11. Chronic issue related to Diabetic nephropathy - Cre 1.99 on admission. BUN 45. - Acute issue related to pre renal azotemia due to hypovolemia - Avoid Nephrotoxic insults including contrast studies - Monitor urine output 5. Chronic Hypertension, Low range of normal likely due to hypovolemia - holding all antihypertensive at this time 6. Hyperlipidemia - continue Simvastatin 10 mg HS 7. Hypothyroidism - continue Synthroid 137 mcg daily (70 IV daily) Acetaminophen for mild pain when necessary. Bowel regimen Senna and MiraLAX scheduled and PRN. Zofran when necessary for nausea and vomiting. SubQ heparin held for now. SCDs in place. High-risk medications: IV Dilaudid ICU: Vent settings: ABG: as above I/Os: Lines: Drips: NE Patient admitted under inpatient status with expected length of stay > 2 midnights for severity of present symptoms, complexities of treatment plan and risk for adverse event . Pain Evaluation: Adequate Pain Control VTE Prophylaxis: Sub-Q Heparin (Unfractionated) VTE Mechanical Devices: Intermittant Pneumatic CD Resuscitation Status: CPR: Attempt Resuscitation Attending Statement The patient was seen and examined together with Dr. Daigle on 12/17/2016 and I agree with the history, exam and plan as outlined in the note above. . NATHALIA DAIGLE DO Dec 17, 2016 16:19 Magen Song MD Dec 18, 2016 08:31
[2016-12-17] MEDS ORDERED: 0.9% Sodium Chloride 500 ML IV ONE (17:25)
--- NOTE | 2016-12-17 17:32 | ABG ---
DateTimeAnalyzed 17:25:00 -_ pH ____7.244 - 7.350 7.450 pCO2 ___22.4__ -mmHg 35.0 45.0 pO2 113 -mmHg 69.0 116 HCO3- ____9.3__ -mmol/L 22.0 26.0 ABE __-16.5__ -mmol/L -2.0 2.0 tHb ___12.1__ -g/dL O2Hb ___96.0__ -% COHb ____1.3__ -% MetHb ____1.0__ -% sO2 ___98.3__ -% FIO2 ___21.0__ -% Drawn By RC - Date/Time Notified____ 17:31:00 -_ Spontaneous_RR ___20.0__ -b/min Notified By RC - Notified Whom MCCART,NATHALIA MD - B 758 -mmHg tO2 ___16.5__ -Vol% Edgardo test _Positive -
--- NOTE | 2016-12-17 18:35 | NUR ---
DKA/Hypotension.. Pt has slowly been trending down her blood glucose, remaining on the DKA insulin protocol. Has been more awake and conversant this evening and remains oriented. UOP remains low, MD updated throughout shift and is now receiving fluid boluses. Norepi has been increased but MAP has been marginal at 58-60. Daughter has been here and updated on her status. Of note.. pt's son Magen called requesting that he have access to his mother's purse and mailbox jean. When I explained that I could not give it to him but that she would have to do this he became irrate and verbally abusive over the phone threatening to bacilio and call the police. Security was notified and per the daughter, pt has hx of mental issues and anger outbursts. She stated he called her and was enroute to the hospital. Permission was given from the pt to have the daughter Nory take her purse home and to block Magen from making phone calls to the hospital and that he would not be allowed to visit the pt. Security and front office java developer updated. Security met Magen at the desk on arrival and he was cooperative in leaving the premises.
[2016-12-17] MEDS ORDERED: Sodium Chloride LOK Flush 10 mL Syringe IVFLUSH PRN ×2 (19:05)
[2016-12-17] MEDS: Levothyroxine 100 mCg/5 mL Inj IV SCH (19:50)
[2016-12-17 21:47] LABS: Mean Corpuscular Hemoglobin 33.8 pg (27.0-35.0); Mean Corpuscular Volume 97.6 fL (81-100)
[2016-12-17 22:07] LABS: Phosphorus 4.2 mg/dL (2.5-4.9)
[2016-12-17 22:21] LABS: Magnesium 1.2 mg/dL (1.6-2.6)
[2016-12-17] MEDS ORDERED: 0.9% Sodium Chloride 250 ML ONE (22:27)
[2016-12-17] MEDS ORDERED: Mag Sulf 2 Gm/50mL IV Premix(Mag < 1.6 & Creat > 2) IV ONE (23:10)
[2016-12-17] MEDS ORDERED: Calcium GLUCO 10% (mEq) Inj 4.65 MEQ in Dextrose 5% 50 ML IV ONE (23:45)
[2016-12-17] MEDS ORDERED: Calcium GLUCO 10% (Gm) 1 Gm/10 mL 50 mL Inj IV ONE (23:50)
[2016-12-17] MEDS ORDERED: Calcium Chloride 10% (Gm) 1 Gm/10 mL Inj IV ONE (23:55)
[2016-12-17] MEDS ORDERED: Calcium GLUCOnate 10% (Gm) 1 Gm/10 mL Inj IV ONE (23:55)
[2016-12-18] VITALS (7 sets, daily range): BP systolic 94–123; BP diastolic 34–54; PULSE 90–97; RESP 19–34; O2SAT 97–100
[2016-12-18] MEDS: Heparin 5,000 Unit/mL Inj SUBQ SCH ×3 (00:21→16:51)
[2016-12-18] MEDS ORDERED: Calcium GLUCO 10% (Gm) Inj 1 GM in Dextrose 5% 50 ML IV ONE ×2 (00:25→03:50)
[2016-12-18] MEDS: 0.9% Sodium Chloride 1,000 ML IV SCH ×2 (01:14→14:21)
[2016-12-18 03:17] LABS: Magnesium 1.6 mg/dL (1.6-2.6)
[2016-12-18] MEDS ORDERED: Calcium GLUCO 10% (Gm) 1 Gm/10 mL 50 mL Inj IV ONE ×2 (03:45→21:20)
[2016-12-18] MEDS ORDERED: Magnesium Sulf 2 Gm/50mL Water 2 GM in IV Premix 1 EACH IV ONE (03:45)
[2016-12-18] MEDS: Norepinephrine 8,000 mCg/250 mL D5W Premix IV SCH ×2 (03:48→07:25)
[2016-12-18] MEDS ORDERED: KCl 40 mEq/100 mL Premix (K 3 - 3.7 & Creat < 2) IV ONE (03:50)
--- NOTE | 2016-12-18 05:56 | NUR ---
P) DKA/Hypotension/electrolytes Pt. still on DKA protocol, blood sugars in the low 100's generally, anion gap closed to 16 on last BMP, initial CVP 1-2, bolus'd 5L before CVP came up to 8, maintenance fluid now on standby per Dr. Faye, Magnesium, calcium and eventually potassium all low in response to fluid resuscitation. Urine output initially scant, improving and color has gone from elli to light yellow, creatinine also improving, last creatinine 1.88. I) Gave Mg. and Ca. riders x2 and KCL rider x1, turning q2h and floating heels, hourly monitoring of blood sugars, frequent CVP's. E) Resting quietly and denies pain. Of note son called desk and security multiple times, per pt. and police request son is not to visit or call, Son, security, and U/A informed. Addendum: 12/18/16 at 0631 by GALEN HEAD RN Of note, pt. up 12L since admit and approx. 10K.
--- NOTE | 2016-12-18 07:53 | DRSVH ---
PROCEDURE: X-RAY CHEST ONE VIEW, PORTABLE ([id number]) INDICATIONS: FLUID OVERLOAD. TECHNIQUE: One view of the chest was acquired. COMPARISON: [facility], CR, XR CHEST 1VW (PORTABLE), 12/17/2016, 2:54. FINDINGS: Surgical changes and devices: There is a right internal jugular central line that ends at the level o f the azygos vein. fireworks maker leads are seen over the chest. Lungs and pleura: The right lung is clear. Since the previous day's x-ray there has developed patchy infiltrate thought to be more consistent with pneumonia and atelectasis in the left lower lung field. Pulmonary vasculature is normal. No changes to indicate fluid overload are seen. Mediastinum: Mediastinal contours appear normal. Heart size is normal. Bones and chest wall: No suspicious bony lesions. Overlying soft tissues appear unremarkable. IMPRESSION: 1. No changes to indicate fluid overload are appreciated. 2. Changes in left lower lung field consistent with developing pneumonia. Dictated by: Pete Simms M.D. on 12/18/2016 at 7:50 Approved by: Pete Simms M.D. on 12/18/2016 at 7:51
[2016-12-18] MEDS: Levothyroxine 100 mCg/5 mL Inj IV SCH (08:14)
[2016-12-18 09:31] LABS: Mean Corpuscular Hemoglobin 34.2 pg (27.0-35.0); Mean Corpuscular Volume 97.8 fL (81-100); Platelet Count 160 bil/L (150-400)
[2016-12-18 10:11] LABS: BASOPHILS % (AUTO) 0 % (0-3); EOSINOPHILS % (AUTO) 0 % (0-5); MONOCYTES % (AUTO) 12 % (4-12); NEUTROPHILS % (AUTO) 70 % (40-74)
[2016-12-18] MEDS: Piperacillin-Tazo 3.375 Gm Inj 3.375 GM in Dextrose 5% Minibag Plus 50 ML IV SCH ×2 (10:13→21:56)
--- NOTE | 2016-12-18 13:28 | DRSVH ---
[facility] [address] [place] [address] Echocardiogram Report Name: ADE GARRETT FStudy Date : 12/18/2016 Height: 60 in Hospital Exam Location: [facility] Weight: 153 lb Gender: Female BSA: 1.7 m2 : 1940 Age: 76 yrs BP: 96/43 mmHg Reason For Study: REFRACTORY HYPOTENSION, MURMUR Ordering Physician: HOSPITALIST [facility] Performed By: Abundio Miller Referring Physician: Andrey SAUCEDO Interpretation Summary The left ventricle is mildly hyperdynamic with the ejection fraction estimated to be 75-80% with a significant dyssynchronous contraction pattern, consistent with a conduction abnormality but no focal wall motion abnormalities. There is normal left ventricular wall thickness and assessment of diastolic parameters indicates a relaxation abnormality of the left ventricle, consistent with normal filling pressures. The right ventricle is normal in size and function. Pulmonary artery pressures cannot be estimated because of the lack of a measurable TR jet velocity. Both atria are normal in size. There is mild mitral regurgitation and mild aortic valve sclerosis with minimal aortic stenosis. There is no other significant valvular heart disease. There is a small left-sided pleural effusion and a small amount of ascites noted. There appears to be a large heterogeneous structure below the diaphragm that is not usually seen. Consider additional imaging studies if clinically indicated. Procedure: A two-dimensional transthoracic echocardiogram with color flow and Doppler was performed. The study quality was technically good. There is no prior echocardiogram noted for this patient. The patient was unconscious during the exam and unable to follow instructions. The patient was in normal sinus rhythm during the exam. Left Ventricle: The left ventricle is normal in size. There is normal left ventricular wall thickness. The left ventricle is mildly hyperdynamic. The ejection fraction is estimated to be 75-80%. There is a significant dyssynchronous contraction pattern, consistent with a conduction abnormality. There are no focal wall motion abnormalities. Assessment of diastolic parameters indicates a relaxation abnormality of the left ventricle, consistent with normal filling pressures. Right Ventricle: The right ventricle is normal in size and function. Atria: Both atria are normal in size. The interatrial septum is intact with no evidence for an atrial septal defect. Mitral Valve: There is mild mitral annular calcification. There is mild mitral regurgitation. Aortic Valve: The aortic valve is trileaflet. There is mild aortic valve sclerosis. The aortic valve is mildly calcified. There is discrete nodular thickening of the non- coronary cusp. Leaflet mobility is mildly reduced. There is mild aortic stenosis. The peak aortic velocity is 1.88 m/sec. The aortic valve mean gradient is 8.7 mmHg. The calculated aortic valve area is 1.8 cm2. The aortic valve area is 1.6 centimeters squared by planimetry. No aortic regurgitation is present. Tricuspid Valve: The tricuspid valve is normal in structure and function. There is trace tricuspid regurgitation. Pulmonary artery pressures cannot be estimated because of the lack of a measurable TR jet velocity. Pulmonic Valve: The pulmonic valve is normal in structure and function. There is trace pulmonic regurgitation. There is no other significant valvular heart disease. Great Vessels: The aortic root is normal size. The dimensions of the ascending aorta are normal. The pulmonary artery is normal size. The IVC has a measurement of 13 mm. The patient was unable to perform the sniff test. Pericardium/ Pleura There is no pericardial effusion. There is a small left -sided pleural effusion. There is a small amount of ascites noted. There appears to be an large heterogeneous structure below the diaphragm that is not usually seen. Consider additional imaging studies if clinically indicated. MMode/2D Measurements & Calculations LVIDd: 3.4 cmLA dimension: 2.9 cm RA long axis: 3.9 cm LVOT diam LVIDs: 1.7 cm FS: 50.6 % LA A2 area: 15.7 cm RA area: 12.5 cm AoV Opening EPSS: 0.66 cmLA A4 area: 15.9 cm RA vol: 34.2 ml IVSd: 0.99 cmLA length (vol): 4.7 cm RA : 20.6 ml/m2 Ao root diam LVPWd LA vol: 45.2 ml : 0.8cm Aortic Jxn LA vol index: 27.2 ml/m IVC diam: 1.3 cm asc Aorta Diam KIM (plan) LV garcia. diameter/BSA LV sys. diameter/BSA RVD1 (basal) (cm/m^2): 2.0 (cm/m^2): 1.0 : 3.1 cm : 1.6 cm2 RVD2 (mid) : 3.1 cm Doppler Measurements & Calculations Ao V2 max MV E max jorje MV E/A: 0.80 TR max jorje : 188.2 cm/sec : 69.7 cm/sec Med Peak E' Jorje : 247.8 cm/sec Ao max P.2 mmHg MV A max jorje TR max PG Ao mean P.7 mmHg : 87.6 cm/sec E/E' med: 12.6 : 24.6 mmHg LVOT Max Jorje Lat Peak E' Jorje PA V2 max : 118.6 cm/sec : 84.7 cm/sec KIM(I,D): 1.8 cm E/E' lat: 11.5 PA mean PG sev ratio: 0.56 E/e' average PA Accel Time Pulm A Revs Dur : 0.08 sec MV A dur : 0.13 sec MV dec time: 0.19 secAo V2 mean LV V1 max PG PA V2 mean : 143.8 cm/sec : 59.6 cm/sec Ao V2 VTI: 32.7 cm LV V1 VTI PA pr(Accel) KIM(V,D): 2.0 cm2 : 18.4 cm : 46.6 mmHg KIM indexed to HSUSAIN Marino - ROBERT Coker (cm^2/m^2): 1.1 Dur: -0.05 msec Reading Physician:01:27 PM
--- NOTE | 2016-12-18 14:35 | DRSVH ---
PROCEDURE: MRI ABDOMEN WITHOUT CONTRAST ([id number]) INDICATIONS: CT findings and DKA with elevated lipase TECHNIQUE: Coronal HASTE through the abdomen, axial 2-D FLASH in- and [id number], and breath-hold T2 FSE with fat saturation through the biliary system and pancreas. Oblique coronal and axial thin-slice HASTE, radial thick-slab HASTE centered on the extrahepatic bile ducts. Intravenous secretin: Not requested. COMPARISON: [facility], CT, CT ABD PELVIS WO CON, 12/17/2016, 2:29. FINDINGS: Image quality: Suboptimal. Extensive motion artifact does result in image degradation in suboptimal evaluation of the common bile duct to evaluate for choledocholithiasis. Additionally, this limits e valuation for other abdominal abnormalities. Liver: The liver is normal in size and grossly unremarkable. No obvious liver lesions are evident. No definite signal drop out is appreciated on the opposed phase images to suggest hepatic steatosis. The gallbladder is normal in size without evidence of gallbladder wall thickening or cholelithiasis. The common bile duct is not adequately evaluated on this examination related to prominent motion ar tifact. However, the common bile duct is not dilated and no obvious calculi are seen within the imag ed portions of the common bile duct. No intrahepatic biliary dilatation is present. Expected flow-v oids within the portal and hepatic veins are noted. Pancreas: Extensive motion artifact results in inadequate evaluation of the pancreas. Diffuse pancr eatic fatty infiltration is present. The main pancreatic duct is markedly enlarged and measures up t o 10 mm. Multifocal areas of sidebranch dilatation of the main pancreatic duct are present. Evaluat ion for pancreatic duct calculi is limited on this MRI related to motion artifact. The calcification noted along the course of the main pancreatic duct within the region of the head of the pancreas on CT dated 12/17/16 is not clearly evident on this examination. The pancreatic duct was much better ender ged on the CT exam. This large calculus on a CT may be resulting in obstruction and subsequent dilat ation of the body and tail of the main pancreatic duct. Additionally, evaluation for pancreatic mass es or focal lesions is inadequate given the degree of motion artifact. No large pancreatic pseudocys ts are evident. Other solid organs: The imaged portions of the spleen, kidneys, and adrenals are grossly unremarkabl e; however, these organs are not adequately evaluated on this exam related to extensive motion artifa ct. There appear to be bilateral renal cysts. Evaluation for solid renal masses is inadequate. Nodes and vessels: No retroperitoneal or mesenteric adenopathy by size criteria. Aorta and inferior vena cava are normal in size. Bowel and peritoneum: A few borderline prominent small bowel loops are evident with fluid contained within these bowel loops. Air and stool is present throughout the colon. There is prominent abdomin al ascites and mesenteric edema. No obvious loculated fluid collections are present. Lung bases: There are small bibasilar pleural effusions with associated atelectasis, new since the p revious CT. Heart size is normal. Bones and soft tissues: No ventral hernias. Bone marrow is of grossly normal overall signal. IMPRESSION: 1. Severely limited MRI of the abdomen related to extensive motion artifact. 2. No cholelithiasis. The common bile duct is not dilated. No choledocholithiasis is suspected. 3. Diffuse abnormal appearance of the pancreas is suggestive of chronic pancreatitis with fatty atro phy. Superimposed acute pancreatitis cannot be excluded. 4. Severe dilatation of the body and tail main pancreatic duct probably is related to a large calcul us near the head of the pancreas that is either within the pancreatic duct and/or the adjacent soft t issues, subsequently obstructing the upstream portions of the pancreatic duct. This is almost certain ly chronic in nature. The calculus was much better appreciated on the prior CT from 12/17/16. Multipl e dilated sidebranches of the main pancreatic duct are also present with multiple cystic foci. While the ductal dilatation is mostly likely explained by a large distal intraluminal calculus, the possib ility of an intra-papillary mucinous neoplasm cannot be excluded on the basis of this examination and followup abdominal imaging with contrast is recommended in [address] or MRI. 5. Fluid filled prominent small bowel loops are suggestive of ileus. 6. Mesenteric edema and ascites. 7. Small bilateral pleural effusions and associated atelectasis are new since 12/17/16. Dictated by: Kit Joshi M.D. on 12/18/2016 at 13:07 Approved by: Kit Joshi M.D. on 12/18/2016 at 13:33
--- NOTE | 2016-12-18 15:32 | DRSVH ---
PROCEDURE: US RENAL SONOGRAM INDICATIONS: low Urine output TECHNIQUE: Real-time scanning was performed of the kidneys and bladder, with image documentation. COMPARISON: None. FINDINGS: Kidneys: Kidneys are normal in size. Right kidney measures 11.6 cm long; left kidney measures 9.2 c m long. Right renal cortical thickness is 0.6 cm; left renal cortical thickness is 1.3 cm. Renal co rtical echotexture is normal. No hydronephrosis or nephrolithiasis. No suspicious solid mass lesion s. Bladder: There is a Levy catheter in place. Miscellaneous: There is free fluid in the right upper quadrant of the peritoneal. This is a small vahid unt IMPRESSION: No evidence for hydronephrosis. Small amount of free fluid in the right upper quadrant of the abdomen. Dictated by: Pete Simms M.D. on 12/18/2016 at 15:29 Approved by: Pete Simms M.D. on 12/18/2016 at 15:31
[2016-12-18] MEDS: Sodium Bicarb 8.4% Inj 75 MEQ in 0.45% Sodium Chloride 1,000 ML IV SCH ×2 (16:51→23:36)
--- NOTE | 2016-12-18 17:50 | PCM.PNMED ---
Subjective Date of Service Dec 18, 2016 Subjective Overnight: Pt continued on DKA protocol. Norepinephrine was increased for goal MAP of 60. Today: She reports sore throat, but denies abdominal pain, N/V/D, shortness of breath, fevers, chills. Exam Vital Signs Vital Sign - Last Date Time Temp Pulse Resp B/P Pulse Ox O2 Delivery O2 Flow Rate FiO2 12/18/16 16:00 36.4 90 21 104/44 98 Room Air 12/17/16 08:00 1.00 Intake and Output 12/17/16 12/17/16 12/18/16 Cumulative From/Thru 15:00 23:00 07:00 12/17/16 00:25 - 12/18/16 06:25 Intake Total 2585 ml 8039 ml 58194 ml Output Total 200 ml 400 ml 600 ml Balance 2385 ml 7639 ml 14900 ml Intake IV Total 2585 ml 8039 ml 05808 ml Output Urine Total 200 ml 400 ml 600 ml # Bowel Movements 0 0 Exam General: Alert, Oriented X3, Cooperative, No acute Distress but appears lethargic Eyes: PERRLA, Scleral Anicteric Mouth: Mouth Normal, Mucous Membranes dry Neck: Supple, no Thyromegaly, trachea central. Chest & Lungs: Clear to auscultation & percussion, No adventitious breath sounds, no crackles, no wheeze Cardiovascular: Normal S1, Normal S2, Systolic murmur present, Regular Rate/ Rhythm, (No JVD, no peripheral edema) Pulses: Radial (present and equal), Dorsalis Pedi (present and equal) Abdomen: Soft, Non-tender, Non-distended, Normoactive bowel tones. Musculoskeletal: Unremarkable. Normal range of motion, no swollen or erythematous joints Extremities: No edema, no cyanosis, no clubbing. Skin: No rashes. Warm and dry, no erythematous areas Neurological: Grossly neurologically intact, has generalized weakness, Normal Speech, Sensation Intact Lymphatic: Lymph nodes Cervical and Axillary not palpable. Lab and Diagnostics Result Diagram: 12/18/1691412/18/16914 X-Rays, CTs and MRIs CT Abd / Pelvis Interpretation Conclusion: Bubbles of air in the anterior abdominal wall and adjacent extra peritoneal tissues. This could be related to recent subcutaneous injections or other instrumentation. Please correlate clinically. No abscess in the soft tissues. Bowel pattern possibly consistent with constipation. Focally dilated distal pancreatic duct versus cystic lesion in the tail of the pancreas. Other findings as noted above. Study type: Abdominal CT no contrast Read by [facility] radiologist CT ABDOMEN AND PELVIS WITHOUT CONTRAST ABDOMEN: The pancreas is quite abnormal, with the glandular parenchyma virtually completely fatty atrophied. The pancreatic duct from the pancreatic neck towards the pancreatic tail is abnormally dilated measuring up to 1.1 cm in maximal dimension associated with a large dense calculus within the pancreatic duct at the pancreatic neck level measuring up to 1.2 cm AP and 2.1 cm transverse. This has a radiodensity of 1666 Hounsfield units. At the pancreatic tail there is a 1.3 and 2.0 cm set of cystic structures in the expected course of the pancreatic duct. Peritoneum and bowel: Unenhanced bowel loops demonstrate normal wall thickness and caliber. No free fluid. There may be a slight amount of free air at the anterior border of the midline of the abdomen/pelvis junction, above the umbilicus, where within the rectus sheath in the immediate adjacent subcutaneous fat several gas bubbles can be seen and at one point a communication between what appears to be in the anterior peritoneal gas bubble and the subcutaneous fat may be present (centered on series 2, image 53). IMPRESSION: 1. The study is significantly limited in anatomic detail by the absence of oral and intravenous contrast. With this qualification no definite underlying malignancy is seen. No definite focus of infection is found. 2. There is an unusual finding of several gas bubbles within the subcutaneous fat and the rectus sheath of the low abdomen/pelvis junction area, with possible small bubble of gas within the peritoneal space immediately adjacent. Please correlate for whether some form of lacerating injury has occurred in this area, versus surgical intervention or even medication injection into that area. 3. Throughout the abdomen and pelvis there is no sign of abscess formation. Colonic obstipation is present bilaterally. 4. There is an unusual appearance of the pancreas where the glandular parenchyma is virtually entirely omentum or sized into fat. The pancreatic duct is prominently distended at 1 cm through the pancreatic body and tail, secondary to a large ovoid calculus measuring up to 1.2 x 2.1 cm. Through the pancreatic tail 2 separate cystic structures can be seen, relatively small in size and likely sidebranch dilatations of the pancreatic ducts. This area could be easily followed by noncontrast CT scanning to assess for loom changeover operator time. Gastroenterology consultation may be warranted given the large pancreatic ductal calculus identified. Dictated by: Claude Mulligan M.D. on 12/17/2016 at 10:12 Additional Diagnostics [facility] DateTimeAnalyzed 10:17:00 -_ pH ____7.197 - 7.350 7.450 pCO2 ___21.3__ -mmHg 35.0 45.0 pO2 102 -mmHg 69.0 116 HCO3- ____8.0__ -mmol/L 22.0 26.0 Assessment & Plan Donna Zuluaga is a 76 year old female with Diabetes, Hypertension, Dyslipidemia and Hypothyroidism who presents to [facility] emergency department with complaints of diffuse abdominal pain and 4 weeks of elevated blood sugars (400-600.) at home with no obvious inciting event. 1. Possible acute on chronic pancreatitis, present on admission. Active. - Abdominal pain on admission, elevated lipase, CT abdomen as above. MRCP was limited due to motion but showed likely chronic pancreatitis with fatty atrophy with a large calculus at the head of the pancreas with multiple dilated sidebranches of the main pancreatic duct. Discussed with Dr. Sadler; this is likely not an acute pancreatitis as there is minimal pain and there is very little viable pancreas left at this point. - Continue Zosyn - 1/2 NS with sodium bicarb @ 125 ml/hr - IV Dilaudid PRN - Ordered stool trypsin & trypsinogen and stool pancreatic elastase - Dr. Sadler of GI is consulted. We appreciate his input. 2. Diabetic Ketoacidosis. Present on admission. Active. - Possibly 2nd to pancreatic burn out or pancreatitis. AG 17 today. Will increase fluids. - C-peptide pending. - ABG as above. - Continue Insulin drip till anion gap closes (Anion gap < 12) - Holding Metformin and Actos - Endocrinology consult as outpatient 3. Acute Kidney injury on Chronic Kidney disease. Present on admission. Improving. - Baseline Creatinine 1.04-1.11. Chronic issue related to Diabetic nephropathy - Cre 1.99 on admission. BUN 45. - Acute issue related to pre renal azotemia due to hypovolemia - 1/2 NS with sodium bicarb @ 125 ml/hr - Avoid Nephrotoxic insults including contrast studies - Dr. Baxter is consulting. We appreciate her expertise. 4. Lactic acidosis with metabolic acidosis. Present on admission. Resolved. 5. Chronic Hypertension, Low range of normal likely due to hypovolemia - holding all antihypertensive at this time 6. Hyperlipidemia - continue Simvastatin 10 mg HS 7. Hypothyroidism - continue Synthroid 137 mcg daily (70 IV daily) Acetaminophen for mild pain when necessary. Bowel regimen Senna and MiraLAX scheduled and PRN. Zofran when necessary for nausea and vomiting. SubQ heparin held for now. SCDs in place. High-risk medications: IV Dilaudid VTE Prophylaxis: Sub-Q Heparin (Unfractionated) VTE Mechanical Devices: Intermittant Pneumatic CD Resuscitation Status: CPR: Attempt Resuscitation Attending Statement The patient was seen and examined together with Dr. Valdes on 12/18/2016 and I agree with the history, exam and plan as outlined in the note above. . Alf Valdes Dec 18, 2016 17:50 Magen Song MD Dec 31, 2016 16:43
--- NOTE | 2016-12-18 17:53 | CONS ---
[address] [address] CONSULTATION REPORT PATIENT: ADE GARRETT : 1940 MR#: [id number] ADMIT: 12/17/2016 JOB ID: [id number] DATE OF SERVICE: REQUESTING PHYSICIAN: Magen Song MD REASON FOR CONSULTATION: Management of abnormal kidney function. CHIEF COMPLAINT: Acute abdominal pain. PRESENT ILLNESS: This is a 76-year-old lady with significant past medical history of type 2 diabetes, hypertension, and hypothyroid dyslipidemia who came to the emergency department with a complaint of abdominal pain. The patient has had history of difficulty controlling her blood sugar. The last hemoglobin A1c in November was 15.3. Her urine microalbumin creatinine ratio at that time was 189.5. Her serum creatinines over the past year have ranged between 1.1-1.3. The patient initially went to [facility] due to elevated blood sugar, but then went home. On the day of the admission, she started having diffuse abdominal pain, associated with nausea but no vomiting, no diarrhea, no fever, no chills. She came to the hospital for further investigations. Her initial vitals was temperature of 35.9, pulse of 116, respiratory rate of 37, blood pressure of 135/80, pulse ox 94 on room air. Her serum creatinine was 1.85, sugar of 685, and lactate of 4.0. The patient was admitted at CCU and has been treated for DKA. Today, her blood sugar has improved. Current glucose is 108, creatinine of 2.08. The abdominal MRI showed diffuse abdominal appearance of pancreas suggesting chronic pancreatitis with fatty atrophy, superimposed acute pancreatitis cannot be excluded. Severe dilatation of body and tail main pancreatic duct is probably related to a large calculus near the head off the pancreas, subsequently obstructing the upstream portions of the pancreatic duct, the possibility of intrapapillary mucinous neoplasm could not be excluded. The patient has received fluid resuscitation. So far, IV fluids have been given 8 L over 24 hr. Her urine output has been low the past 24 hours , about 400 cc overnight. An echocardiogram was done this morning and showed an ejection fraction of 75% to 80% with significant dyssynchronous contraction pattern, consistent with a conduction abnormality but no focal wall motion abnormalities. Right ventricle is normal in size and function. Her blood pressure has been low overnight. She is on norepinephrine 0.08 mcg/kg per minute. PAST MEDICAL HISTORY: 1. Longstanding type 2 diabetes with uncontrolled blood sugar. 2. Insulin-dependent. 3. High blood pressure. 4. Chronic kidney disease. Serum creatinine has ranged between 1.1-1.3. 5. Dyslipidemia. 6. Hypothyroid. 7. Vitamin D deficiency. 8. Microalbuminuria. SURGICAL HISTORY: Cataract surgery. FAMILY HISTORY: Positive for myocardial infarction in her father. Positive for diabetes. Her brother is on dialysis. SOCIAL HISTORY: Denies current use of alcohol, tobacco, or illicit drugs. REVIEW OF SYSTEM: A 14 point review of systems was performed. MEDICATIONS: Reviewed. ALLERGIES: No known drug allergies. PHYSICAL EXAMINATION: Vitals: Temperature 37.3, pulse 82, respiratory 20, blood pressure 123/42, pulse is 98 on room air. General appearance: Chronically ill-looking. No acute distress. Feeling weak. Oriented x3. Cooperative HEENT : Dry mucous membranes. Atraumatic. PERRLA. No pallor, no jaundice, no JVD, no lymphadenopathy, no thyroid enlargement. Heart: Regular rhythm. Normal S1, S2. No murmurs, rubs, or gallops. Lungs: Decreased breath sounds at bases. No wheezing. No rhonchi. No rales at the moment. Abdomen: Soft, nontender, nondistended. No significant abdominal tenderness. Active bowel sounds. Extremities: No edema, cyanosis or clubbing of the fingers. LABORATORY: Sodium 137, potassium 4.4, chloride 111, bicarb 9, BUN 44, creatinine 2.08, lactic acid 1.5, calcium 6.6, magnesium 1.6. The pH 7.244, pCO2 22.4, bicarb 9.3, pO2 113. ASSESSMENT: 1. Acute kidney injury on chronic kidney disease, stage 3. As mentioned earlier, her baseline serum creatinine was 1.1-1.3. The current serum creatinine is 2.08. She has low urine output over the last 24 hours. She appears to be hypovolemic despite aggressive IV fluid. She does not require any oxygen supplement. Chest x-ray does not show any pulmonary congestion. The etiology of acute kidney injury is due to intravascular volume depletion and probable acute tubular necrosis from acute pancreatitis. At this point, I would like to continue IV fluid replacement. We will monitor her volume status and oxygenation. Later on, she might require diuretics. There is no indication for dialysis at this moment. I will repeat her UA and urine protein, creatinine and urine microalbumin and creatinine ratio. CT abdomen did not show any evidence of hydronephrosis or nephrolithiasis. 2. Anion gap metabolic acidosis secondary to diabetic ketoacidosis and lactic acidosis. The initial anion gap was 37. The current anion gap is 17. The pH is 7.2. Will switch normal saline to half-normal saline plus sodium bicarb 75 mEq 125 cc/hour. 3. Diabetic ketoacidosis. 4. Acute pancreatitis with the evidence of pancreatic duct dilatation, calculus vs carcinoma. 5. Hypertension. 6. Hypothyroid. 7. Dyslipidemia. Thank you for the consultation. We will monitor along with you. MOI
--- NOTE | 2016-12-18 18:13 | CONS ---
[address] [address] CONSULTATION REPORT PATIENT: ADE GARRETT : 1940 MR#: [id number] ADMIT: 12/17/2016 JOB ID: [id number] DATE OF SERVICE: 12/18/2016 REASON FOR EVALUATION: I saw this patient at [facility] GI service for evaluation of abnormal CT scan and pancreatic stones. HISTORY OF PRESENT ILLNESS: This is a 76-year-old female who was admitted to the hospital for diabetic ketoacidosis. She has a history of diabetes, hypothyroidism, chronic kidney disease, osteopenia. She came in with lethargy, weakness which gradually worsened in the past two weeks. She came to the emergency department and the patient reported having abdominal pain which was described as diffuse without any radiation. No diarrhea, no nausea, no vomiting. She did not eat anything for the past three days. She had no fever, chills. In the ED, she was noted to have some confusion. The day before coming to our ED, she was at [facility] and she was medically treated and she was sent home. Records showed that she had issues with increase in blood sugar. She got a CT scan because of the mild elevation of lipase and abdominal pain. The CT scan, at that time, showed that the pancreatic tissues are essentially gone with omental fat and distended pancreatic ducts were noted as well as 1 x 2 cm calculus at the neck of the pancreas. With these findings, GI was consulted and I recommended and an MRCP last evening. We were not able to do an MRI of the pancreas because of her kidney status. MRCP was limited, common bile duct was not dilated, and again pancreas appears to have fatty atrophy with suggestion of chronic pancreatitis. Again, there was a large stone seen that appears to be completely obstructing with multiple dilated side branches of the main duct with multiple cystic foci. There was a small bowel loop suggestive of ileus. Some mesenteric edema and ascites were noted as well. When I saw the patient, the patient was lying in her bed and essentially the same as last night. She denied any pain. She denied any nausea. She said she was pain-free when I saw her. She denies any nausea, vomiting, fever or chills, chest pain, shortness of breath, abdominal pain, blood in the stools, black stools, diarrhea, constipation. PAST MEDICAL HISTORY: As above with cataract surgery, osteopenia. MEDICATIONS AT HOME: 1. Actos, 2. Cozaar. 3. Insulin. 4. Metformin. 5. Simvastatin. 6. Synthroid. ALLERGIES: To no known medications. MEDICATIONS: Patient is currently on: 1. Zosyn. 2. IV fluids. 3. Levothyroxine. 4. Norepinephrine. 5. Insulin. 6. Bicarbonate. 7. Senna. 8. Maalox. 9. MiraLAX. 10. Tylenol. 11. Zofran p.r.n. SOCIAL HISTORY: Lives in [place]. Patient has a son and a daughter. Denies tobacco, alcohol. FAMILY HISTORY: Positive for diabetes. REVIEW OF SYSTEMS: As above but patient was weak and difficulty maintaining long conversations but she was appropriate. PHYSICAL EXAMINATION: Temp 37.7, T-max 37.7, pulse 92, respiration 20, blood pressure 123/42 at 8 o'clock this morning. Head and neck: No icterus. Lungs: Clear. Cardiovascular: Regular rate and rhythm. Normal S1, S2. Abdomen is soft. Minimal tenderness without guarding, rebound or firmness in the upper abdomen. Mildly distended with some decrease in bowel sounds. Extremities: No pitting edema of the ankles. Skin shows no jaundice. LABORATORY DATA: White count 7, hemoglobin 11.1, platelets 160,000. INR 0.9. Chemistry showing BUN of 44, creatinine 2.08, normal total bilirubin, AST, ALT and alkaline phosphatase. Albumin is 2.7. IMPRESSION: This is a lady who came in with abdominal pain, nausea and vomiting. However, on my history, she denies having abdominal pain. On examination, minimal tenderness. Also, when I asked her whether she has abdominal pain, she completely denies ever having stomach pain and she is currently not having any abdominal pain. Lipase was slightly elevated at [address] scan and MRCP were reviewed. It appears that this is probably a chronic phenomenon. To me, I do not think she has pancreatitis per se because she does not have any abdominal pain, no significant abdominal tenderness, and I think her pancreas is essentially burned out. I do not think she has enough pancreatic tissues that are viable to cause significant pancreatitis. The finding that we are seeing on the scanning with dilated ducts and stones are chronic. This did not happen acutely. She probably does have underlying chronic pancreatitis. Whether or not she has an acute pancreatitis on top of this is arguable, but I do not think it is likely the cause of her derterioating medical condition. I do not think she has guts ischemia eith due to lack of abd pain or abdominal tenderness. There is no ascending cholangitis with nl lft and none dilated biliary ducts. She has no abd tenderness or peritoneal sign on abdominal exam. However, she is being treated for diabetic ketoacidosis with fluids. She got 12 L of fluids since she has been here and fluids is the way to treat acute pancreatitis. I contacted [facility] and spoke with Dr. John to determine whether or not there is any acute need to do a mechanical lithotripsy of the pancreas. After presenting the patient and an evaluation by Dr. John, Dr. John believes that this is not an acute phenomenon but chronic and there is no urgent need or benefit of the patient to do a mechanical lithotripsy. Therefore, it was recommended that she have her acute medical issue resolved and then have her go to [facility] to have the mechanical lithotripsy on an elective basis. Therefore, recommend the followin. Continue to follow lipase. 2. Continue to follow LFTs. 3. Continue aggressive fluid resuscitation. 4. Panculture, i.e. awaiting final blood culture results. 5. Chest x-ray concerning for developing pneumonia which the patient is already on Zosyn. 6. Continue to treat diabetic ketoacidosis. 7. Defer renal issues to the Nephrology service who are consulted. 8. Obtain fecal elastase, fecal trypsinogen, fecal trypsin and if these are unremarkable, then it is highly unlikely the patient has underlying pancreatitis. If these are elevated, then there is some biochemical evidence that there may be pancreatitis. Will await these results. MOI
--- NOTE | 2016-12-18 18:26 | NUR ---
P: Hemodynamics, Resp, Social I,E: Pt was on high dose of norepi this am, and this was titrated down to 0.05mcg at this time. BP has been 90's to 100's sys for most of this shift. She has also received a total of 750cc NS bolus today and her IVF's have been adjusted up and now bi carb has been added. CVP has gone from 2 this am to 8 at the present time. UOP today was 800cc. HR has been in the 90's SR today. I have been following the DKA protocol and currently her D10 is at 119cc/hr, last OT was 104. She remains on room air and sats are in the high 90's. I have not noted a cough, and she denies SOB or cough. She went down to MRI today with monitoring and a nurse and she tolerated that well, although she continues to be quiet, passive and sleeps unless you are asking a question. She also had an echo today and an U/S of her kidneys. Her daughter has called several times today and I have updated her on her Mothers condition and plan of care.
[2016-12-18] MEDS: Insulin Human REGular Inj 100 UNIT in 0.9% Sodium Chloride 100 ML IV SCH (20:35)
[2016-12-18] MEDS ORDERED: CALCIUM GLUCO IV ONE (21:25)
[2016-12-18] MEDS ORDERED: KCl 20 mEq/100 mL IV Premix (K 3 - 3.7 & Cr 2.1 - 2.9) IV ONE (21:25)
[2016-12-18] MEDS ORDERED: DEXTROSE 5% IV ONE (21:25)
--- NOTE | 2016-12-18 23:07 | ABG ---
DateTimeAnalyzed 23:01:00 -_ pH ____7.246 - 7.350 7.450 pCO2 ___17.4__ -mmHg 35.0 45.0 pO2 106 -mmHg 69.0 116 HCO3- ____7.3__ -mmol/L 22.0 26.0 ABE __-18.5__ -mmol/L -2.0 2.0 tHb ___10.5__ -g/dL O2Hb ___96.2__ -% COHb ____0.8__ -% MetHb ____1.1__ -% sO2 ___98.1__ -% FIO2 ___21.0__ -% Drawn By cf - Date/Time Notified____ 23:06:00 -_ Notified By CF - Notified Whom ___Dr. De La Houssaye -__ B 751 -mmHg tO2 ___14.4__ -Vol% Edgardo test N/A -
[2016-12-19] MEDS ORDERED: Lactated Ringer's 1,000 ML IV ONE (00:05)
[2016-12-19] MEDS: Norepinephrine 8,000 mCg/250 mL D5W Premix IV SCH ×2 (00:05→19:49)
[2016-12-19] MEDS: Heparin 5,000 Unit/mL Inj SUBQ SCH ×2 (00:14→09:05)
[2016-12-19 03:05] VITALS: BP 105/46; PULSE 92; RESP 27; O2SAT 97
--- NOTE | 2016-12-19 03:33 | ABG ---
DateTimeAnalyzed 03:27:00 -_ pH ____7.245 - 7.350 7.450 pCO2 ___18.4__ -mmHg 35.0 45.0 pO2 ___95.8__ -mmHg 69.0 116 HCO3- ____7.7__ -mmol/L 22.0 26.0 ABE __-18.1__ -mmol/L -2.0 2.0 tHb ___10.6__ -g/dL O2Hb ___95.6__ -% COHb ____0.8__ -% MetHb ____0.9__ -% sO2 ___97.3__ -% FIO2 ___21.0__ -% Drawn By cf - Date/Time Notified____ 03:32:00 -_ Notified By cf - Notified Whom ___Dr. De La Houssaye -__ B 751 -mmHg tO2 ___14.3__ -Vol% Edgardo test _Positive -
[2016-12-19 04:55] LABS: Mean Corpuscular Hemoglobin 34.3 pg (27.0-35.0); Mean Corpuscular Volume 97.4 fL (81-100); Platelet Count 112 bil/L (150-400)
[2016-12-19 05:35] LABS: BASOPHILS % (AUTO) 0 % (0-3); EOSINOPHILS % (AUTO) 2 % (0-5); MONOCYTES % (AUTO) 8 % (4-12); NEUTROPHILS % (AUTO) 54 % (40-74)
[2016-12-19] MEDS: Levothyroxine 100 mCg/5 mL Inj IV SCH (07:38)
[2016-12-19 08:00] VITALS: BP 115/42; PULSE 93; RESP 26; O2SAT 97
[2016-12-19 08:18] LABS: Magnesium 1.7 mg/dL (1.6-2.6)
[2016-12-19] MEDS: Sodium Bicarb 8.4% Inj 75 MEQ in 0.45% Sodium Chloride 1,000 ML IV SCH (08:32)
[2016-12-19] MEDS ORDERED: Calcium GLUCO 10% (Gm) Inj 1 GM in 0.9% Sodium Chloride 50 ML IV ONE (09:05)
[2016-12-19] MEDS ORDERED: Insulin Human REGular Inj 100 UNIT in 0.9% Sodium Chloride-Pha MIX 100 ML IV SCH (09:43)
--- NOTE | 2016-12-19 09:55 | NUR ---
NUTRITION FOLLOW UP: ASSESS: 76 YO F admitted to CCU with acute abdominal pain and DKA. Pt has been NPO X 2 days. Per CCU rounds, pt very sleepy and not very conversational. PMHx: Vitamin D deficiency, hypothyroidism, dyslipidemia, type 2 diabetes, CKD, HTN, osteopenia. DIET: NPO. LABS: Reviewed. Na 133, BUN 41, CR 2.07, Glu 146, Ca 6.1, Alb 2.0, A1c 15.5 MEDICATIONS: Reviewed. Insulin, Pressor GI: 2 BM 12/19. SKIN: No issues reported. ANTHROPOMETRICS: Current Wt: 73.7 kg, BMI: 31.7 kg/m2. IBW: 45.5 kg (131.1% IBW), Admit wt: 59.5 kg. ESTIMATED NEEDS (CCU): Calories: 6299-1635 kcal/day (25-30 kcal/kg BW) Protein: 48-89 g/day (0.8-1.5 g/kg BW) NUTRITION DIAGNOSIS: 1) Altered nutrition-related labs related to hyperglycemia, DKA, as evidenced by glucose 358, A1c 15.5.---PERSISTS. INTERVENTION: 1) Once patient is appropriate, will offer inpatient diabetes education. Pt has received diabetes education in our outpatient setting in February 2013 that was well received, per review of documentation. MONITOR/EVALUATE: NPO status, diet advance, DM ed, labs, GI/nutrition status. Follow per moderate nutrition risk guidelines.
[2016-12-19] MEDS: Piperacillin-Tazo 3.375 Gm Inj 3.375 GM in Dextrose 5% Minibag Plus 50 ML IV SCH ×2 (09:59→19:50)
[2016-12-19] MEDS ORDERED: Albumin 25% 50 GM in IV Premix 1 EACH IV ONE (11:20)
[2016-12-19] MEDS: Sodium Bicarb 8.4% Inj 150 MEQ in Dextrose 5% 1,000 ML IV SCH ×2 (11:31→20:42)
[2016-12-19 12:00] VITALS: BP 98/62; PULSE 88; RESP 26; O2SAT 100
--- NOTE | 2016-12-19 12:12 | PCM.PNMED ---
Subjective Date of Service Dec 19, 2016 Subjective The patient was seen today in the intensive care unit. She was weak but is somewhat somnolent. She was able to answer only simple questions. She denies any pain, cough, or vomiting. She does have some abdominal distention and some mild bruising issues. Yesterday she had [address]120 in and 1200 in urine with an additional 1300 hrs. today for the first 8 hours. Her hemoglobin is 10.4, sodium is 133, potassium 3.6, chloride of 112, bicarbonate of 10, BUN and creatinine are 41 and 2.07 respectively. Exam Vital Signs Vital Sign - Last Date Time Temp Pulse Resp B/P Pulse Ox O2 Delivery O2 Flow Rate FiO2 12/19/16 08:00 35.8 93 26 115/42 97 Room Air 12/19/16 03:05 21 12/17/16 08:00 1.00 Intake and Output 12/18/16 12/18/16 12/19/16 Cumulative From/Thru 15:00 23:00 07:00 12/17/16 00:25 - 12/19/16 06:31 Intake Total 2662 ml 3773 ml 15293 ml Output Total 800 ml 1300 ml 2700 ml Balance 1862 ml 2473 ml 94908 ml Intake Oral 0 ml 0 ml IV Total 2662 ml 3773 ml 68761 ml Output Urine Total 800 ml 1300 ml 2700 ml # Bowel Movements 2 2 Exam HEENT examination is remarkable for pale sclera. Neck is supple without adenopathy or thyromegaly. There is some mild jugular venous distention at 70 . Lungs are clear to auscultation first and bibasilar rales noted. Heart is regular with a soft systolic murmur. Abdomen is soft and distended with diffuse tympany to percussion. There was no rebound or guarding no redness and some fluid was appreciated in both flanks. Extremities showed some mild generalized edema. Skin turgor is good no strong evidence of any rashes. Lab and Diagnostics Result Diagram: 12/19/16 0440 12/19/16 0826 X-Rays, CTs and MRIs CT Abd / Pelvis Interpretation Conclusion: Bubbles of air in the anterior abdominal wall and adjacent extra peritoneal tissues. This could be related to recent subcutaneous injections or other instrumentation. Please correlate clinically. No abscess in the soft tissues. Bowel pattern possibly consistent with constipation. Focally dilated distal pancreatic duct versus cystic lesion in the tail of the pancreas. Other findings as noted above. Study type: Abdominal CT no contrast Read by [facility] radiologist CT ABDOMEN AND PELVIS WITHOUT CONTRAST ABDOMEN: The pancreas is quite abnormal, with the glandular parenchyma virtually completely fatty atrophied. The pancreatic duct from the pancreatic neck towards the pancreatic tail is abnormally dilated measuring up to 1.1 cm in maximal dimension associated with a large dense calculus within the pancreatic duct at the pancreatic neck level measuring up to 1.2 cm AP and 2.1 cm transverse. This has a radiodensity of 1666 Hounsfield units. At the pancreatic tail there is a 1.3 and 2.0 cm set of cystic structures in the expected course of the pancreatic duct. Peritoneum and bowel: Unenhanced bowel loops demonstrate normal wall thickness and caliber. No free fluid. There may be a slight amount of free air at the anterior border of the midline of the abdomen/pelvis junction, above the umbilicus, where within the rectus sheath in the immediate adjacent subcutaneous fat several gas bubbles can be seen and at one point a communication between what appears to be in the anterior peritoneal gas bubble and the subcutaneous fat may be present (centered on series 2, image 53). IMPRESSION: 1. The study is significantly limited in anatomic detail by the absence of oral and intravenous contrast. With this qualification no definite underlying malignancy is seen. No definite focus of infection is found. 2. There is an unusual finding of several gas bubbles within the subcutaneous fat and the rectus sheath of the low abdomen/pelvis junction area, with possible small bubble of gas within the peritoneal space immediately adjacent. Please correlate for whether some form of lacerating injury has occurred in this area, versus surgical intervention or even medication injection into that area. 3. Throughout the abdomen and pelvis there is no sign of abscess formation. Colonic obstipation is present bilaterally. 4. There is an unusual appearance of the pancreas where the glandular parenchyma is virtually entirely omentum or sized into fat. The pancreatic duct is prominently distended at 1 cm through the pancreatic body and tail, secondary to a large ovoid calculus measuring up to 1.2 x 2.1 cm. Through the pancreatic tail 2 separate cystic structures can be seen, relatively small in size and likely sidebranch dilatations of the pancreatic ducts. This area could be easily followed by noncontrast CT scanning to assess for bladder changer time. Gastroenterology consultation may be warranted given the large pancreatic ductal calculus identified. Dictated by: Claude Mulligan M.D. 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 In addition to switching her to a bicarbonate drip and backing down on the right. We need to continue to follow her intake, output, and her lab. VTE Prophylaxis: Sub-Q Heparin (Unfractionated) VTE Mechanical Devices: Intermittant Pneumatic CD Resuscitation Status: CPR: Attempt Resuscitation Eros Bains DO Dec 19, 2016 12:12
--- NOTE | 2016-12-19 13:36 | PCM.PNMED ---
Subjective Date of Service Dec 19, 2016 Subjective Overnight: Pt continued on DKA protocol. Norepinephrine was titrated to 0.055 this morning for goal MAP of 60. Today: She reports sore throat, but denies abdominal pain, N/V/D, shortness of breath, fevers, chills. Exam Vital Signs Vital Sign - Last Date Time Temp Pulse Resp B/P Pulse Ox O2 Delivery O2 Flow Rate FiO2 12/19/16 08:00 35.8 93 26 115/42 97 Room Air 12/19/16 03:05 21 12/17/16 08:00 1.00 Intake and Output 12/18/16 12/18/16 12/19/16 Cumulative From/Thru 15:00 23:00 07:00 12/17/16 00:25 - 12/19/16 06:31 Intake Total 2662 ml 3773 ml 98221 ml Output Total 800 ml 1300 ml 2700 ml Balance 1862 ml 2473 ml 19826 ml Intake Oral 0 ml 0 ml IV Total 2662 ml 3773 ml 92108 ml Output Urine Total 800 ml 1300 ml 2700 ml # Bowel Movements 2 2 Exam General: Alert, Oriented X3, Cooperative, No acute Distress but appears lethargic and more somnolent since last interview yesterday. Eyes: PERRLA, Scleral Anicteric Mouth: Mouth Normal, Mucous Membranes dry Neck: Supple, no Thyromegaly, trachea central. Chest & Lungs: Clear to auscultation & percussion, No adventitious breath sounds, no crackles, no wheeze Cardiovascular: Normal S1, Normal S2, Systolic murmur present, Regular Rate/ Rhythm, (No JVD, no peripheral edema) Pulses: Radial (present and equal), Dorsalis Pedi (present and equal) Abdomen: Soft, Non-tender, Non-distended, Normoactive bowel tones. Musculoskeletal: Unremarkable. Normal range of motion, no swollen or erythematous joints Extremities: No edema, no cyanosis, no clubbing. Skin: No rashes. Warm and dry, no erythematous areas Neurological: Grossly neurologically intact, has generalized weakness, Normal Speech, Sensation Intact Lymphatic: Lymph nodes Cervical and Axillary not palpable. IVs and Medications Medications Reviewed: Medications were reviewed in detail Lab and Diagnostics Result Diagram: 12/19/16 0440 12/19/16 0826 X-Rays, CTs and MRIs CT Abd / Pelvis Interpretation Conclusion: Bubbles of air in the anterior abdominal wall and adjacent extra peritoneal tissues. This could be related to recent subcutaneous injections or other instrumentation. Please correlate clinically. No abscess in the soft tissues. Bowel pattern possibly consistent with constipation. Focally dilated distal pancreatic duct versus cystic lesion in the tail of the pancreas. Other findings as noted above. Study type: Abdominal CT no contrast Read by [facility] radiologist CT ABDOMEN AND PELVIS WITHOUT CONTRAST ABDOMEN: The pancreas is quite abnormal, with the glandular parenchyma virtually completely fatty atrophied. The pancreatic duct from the pancreatic neck towards the pancreatic tail is abnormally dilated measuring up to 1.1 cm in maximal dimension associated with a large dense calculus within the pancreatic duct at the pancreatic neck level measuring up to 1.2 cm AP and 2.1 cm transverse. This has a radiodensity of 1666 Hounsfield units. At the pancreatic tail there is a 1.3 and 2.0 cm set of cystic structures in the expected course of the pancreatic duct. Peritoneum and bowel: Unenhanced bowel loops demonstrate normal wall thickness and caliber. No free fluid. There may be a slight amount of free air at the anterior border of the midline of the abdomen/pelvis junction, above the umbilicus, where within the rectus sheath in the immediate adjacent subcutaneous fat several gas bubbles can be seen and at one point a communication between what appears to be in the anterior peritoneal gas bubble and the subcutaneous fat may be present (centered on series 2, image 53). IMPRESSION: 1. The study is significantly limited in anatomic detail by the absence of oral and intravenous contrast. With this qualification no definite underlying malignancy is seen. No definite focus of infection is found. 2. There is an unusual finding of several gas bubbles within the subcutaneous fat and the rectus sheath of the low abdomen/pelvis junction area, with possible small bubble of gas within the peritoneal space immediately adjacent. Please correlate for whether some form of lacerating injury has occurred in this area, versus surgical intervention or even medication injection into that area. 3. Throughout the abdomen and pelvis there is no sign of abscess formation. Colonic obstipation is present bilaterally. 4. There is an unusual appearance of the pancreas where the glandular parenchyma is virtually entirely omentum or sized into fat. The pancreatic duct is prominently distended at 1 cm through the pancreatic body and tail, secondary to a large ovoid calculus measuring up to 1.2 x 2.1 cm. Through the pancreatic tail 2 separate cystic structures can be seen, relatively small in size and likely sidebranch dilatations of the pancreatic ducts. This area could be easily followed by noncontrast CT scanning to assess for manager exchange time. Gastroenterology consultation may be warranted given the large pancreatic ductal calculus identified. Dictated by: Claude Mulligan M.D. on 12/17/2016 at 10:12 Additional Diagnostics [facility] DateTimeAnalyzed 10:17:00 -_ pH ____7.197 - 7.350 7.450 pCO2 ___21.3__ -mmHg 35.0 45.0 pO2 102 -mmHg 69.0 116 HCO3- ____8.0__ -mmol/L 22.0 26.0 Assessment & Plan Donna Zuluaga is a 76 year old female with Diabetes, Hypertension, Dyslipidemia and Hypothyroidism who presents to [facility] emergency department with complaints of diffuse abdominal pain and 4 weeks of elevated blood sugars (400-600) at home with no obvious inciting event. #. Septic Shock, present on admission, Active. - No clear source of infection identified at this time, however it is possibly pneumonia. - NE at 0.055 with previous aggressive fluid resuscitation. - Procalcitonin 1.05 12/19. repeat tomorrow. - Albumin 25% x 2 today. -new bandemia today,new set of blood culture sent today -received aggressive fluid rehydration -will consider stress dose steroid if continues to require pressor #. Acute on chronic pancreatitis with obstructing pancreatic stone, present on admission. Active. - Abdominal pain on admission, elevated lipase, CT abdomen as above. MRCP was limited due to motion but showed likely chronic pancreatitis with fatty atrophy with a large calculus at the head of the pancreas with multiple dilated side- branches of the main pancreatic duct. Discussed with Dr. Sadler; this is likely not an acute pancreatitis as there is minimal pain and there is very little viable pancreas left at this point. 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 - Continue Zosyn - 1/2 NS with sodium bicarb @ 125 ml/hr - IV Dilaudid PRN - Ordered stool trypsin & trypsinogen and stool pancreatic elastase - Dr. Sadler of GI is consulted. We appreciate his input. -RUQ US and HIDA scan pending #. Diabetic Ketoacidosis. Present on admission. Active. - Possibly 2nd to pancreatic burn out or pancreatitis. AG 17 today. Will increase fluids. - C-peptide pending. - ABG as above. - Continue Insulin drip till anion gap closes (Anion gap < 12) - Holding Metformin and Actos - Stop DKA protocol and switch to non-DKA protocol. - BiCarb ggt with D5W. #. Acute Kidney injury on Chronic Kidney disease. Present on admission. Improving. - Baseline Creatinine 1.04-1.11. Chronic issue related to Diabetic nephropathy - Cre 1.99 on admission. BUN 45. - Acute issue related to pre renal azotemia due to hypovolemia - Sodium bicarb @ 125 ml/hr D5W. - Avoid Nephrotoxic insults including contrast studies - Nephrology consulting. We appreciate her expertise. #. Hyperchloremic Metabolic Acidosis, not present on admission, Active. - BiCarb ggt 125 ml / hr with D5 W. #. Thrombocytopenia, not present on admission. Active. - likely consumptive. No sign of disseminated intravascular coagulopathy. - HIT unlikely but panel sent and is pending. - Continue Anticoagulation until plt <50. Heparin SQ. #. Lactic acidosis with metabolic acidosis. Present on admission. Resolved. #. Chronic Hypertension, Low range of normal likely due to hypovolemia - holding all antihypertensive at this time #. Hyperlipidemia - continue Simvastatin 10 mg HS #. Hypothyroidism - continue Synthroid 137 mcg daily (70 IV daily) #. Hypocalcemia, not present on admission. Active. -due to suspected ongoing pancreatitis Acetaminophen for mild pain when necessary. Bowel regimen Senna and MiraLAX scheduled and PRN. Zofran when necessary for nausea and vomiting. SubQ heparin held for now. SCDs in place. High-risk medications: IV Dilaudid Disposition: Patients outlook remains guarded. She is likely here for at least 4 -5 more days Pain Evaluation: Adequate Pain Control VTE Prophylaxis: Sub-Q Heparin (Unfractionated) VTE Mechanical Devices: Intermittant Pneumatic CD Resuscitation Status: CPR: Attempt Resuscitation Attending Statement The patient was seen and examined together with Dr. Daigle on 12/19/2016 and I agree with the history, exam and plan as outlined in the note above. NATHALIA DAIGLE DO Dec 19, 2016 13:36 Jamar Scruggs MD Dec 19, 2016 19:58
[2016-12-19 14:46] LABS: APPEARANCE,URINE SLIGHTLY CLOUDY (CLEAR,HAZY); COLOR,URINE STRAW (YELLOW); OCCULT BLOOD,URINE SMALL (NEGATIVE); UROBILINOGEN,URINE NORMAL (NORMAL)
[2016-12-19] MEDS: Albumin 25% 25 GM in IV Premix 1 EACH IV SCH ×2 (15:57→19:48)
[2016-12-19 16:05] VITALS: BP 105/60; PULSE 99; RESP 35; O2SAT 100
--- NOTE | 2016-12-19 16:24 | PCM.PNMED ---
Subjective Date of Service Dec 19, 2016 Subjective Patient is still on pressors and she still denies abdominal pain. She says she is not nauseated but she says she does not feel well. Exam Vital Signs Vital Sign - Last Date Time Temp Pulse Resp B/P Pulse Ox O2 Delivery O2 Flow Rate FiO2 12/19/16 08:00 35.8 93 26 115/42 97 Room Air 12/19/16 03:05 21 12/17/16 08:00 1.00 Intake and Output 12/18/16 12/18/16 12/19/16 Cumulative From/Thru 15:00 23:00 07:00 12/17/16 00:25 - 12/19/16 06:31 Intake Total 2662 ml 3773 ml 17499 ml Output Total 800 ml 1300 ml 2700 ml Balance 1862 ml 2473 ml 33245 ml Intake Oral 0 ml 0 ml IV Total 2662 ml 3773 ml 39100 ml Output Urine Total 800 ml 1300 ml 2700 ml # Bowel Movements 2 2 Exam Physical examination: Patient is alert appropriate Head and neck no icterus Lungs clear anteriorly Cardiovascular regular rate and rhythm with normal S1-S2 Abdomen soft nontender mild distended with decreased bowel sounds. No Mar sign. Extremities no pitting edema of the ankles Skin no jaundice Lab and Diagnostics Result Diagram: 12/19/16 0440 12/19/16 1330 X-Rays, CTs and MRIs CT Abd / Pelvis Interpretation Conclusion: Bubbles of air in the anterior abdominal wall and adjacent extra peritoneal tissues. This could be related to recent subcutaneous injections or other instrumentation. Please correlate clinically. No abscess in the soft tissues. Bowel pattern possibly consistent with constipation. Focally dilated distal pancreatic duct versus cystic lesion in the tail of the pancreas. Other findings as noted above. Study type: Abdominal CT no contrast Read by [facility] radiologist CT ABDOMEN AND PELVIS WITHOUT CONTRAST ABDOMEN: The pancreas is quite abnormal, with the glandular parenchyma virtually completely fatty atrophied. The pancreatic duct from the pancreatic neck towards the pancreatic tail is abnormally dilated measuring up to 1.1 cm in maximal dimension associated with a large dense calculus within the pancreatic duct at the pancreatic neck level measuring up to 1.2 cm AP and 2.1 cm transverse. This has a radiodensity of 1666 Hounsfield units. At the pancreatic tail there is a 1.3 and 2.0 cm set of cystic structures in the expected course of the pancreatic duct. Peritoneum and bowel: Unenhanced bowel loops demonstrate normal wall thickness and caliber. No free fluid. There may be a slight amount of free air at the anterior border of the midline of the abdomen/pelvis junction, above the umbilicus, where within the rectus sheath in the immediate adjacent subcutaneous fat several gas bubbles can be seen and at one point a communication between what appears to be in the anterior peritoneal gas bubble and the subcutaneous fat may be present (centered on series 2, image 53). IMPRESSION: 1. The study is significantly limited in anatomic detail by the absence of oral and intravenous contrast. With this qualification no definite underlying malignancy is seen. No definite focus of infection is found. 2. There is an unusual finding of several gas bubbles within the subcutaneous fat and the rectus sheath of the low abdomen/pelvis junction area, with possible small bubble of gas within the peritoneal space immediately adjacent. Please correlate for whether some form of lacerating injury has occurred in this area, versus surgical intervention or even medication injection into that area. 3. Throughout the abdomen and pelvis there is no sign of abscess formation. Colonic obstipation is present bilaterally. 4. There is an unusual appearance of the pancreas where the glandular parenchyma is virtually entirely omentum or sized into fat. The pancreatic duct is prominently distended at 1 cm through the pancreatic body and tail, secondary to a large ovoid calculus measuring up to 1.2 x 2.1 cm. Through the pancreatic tail 2 separate cystic structures can be seen, relatively small in size and likely sidebranch dilatations of the pancreatic ducts. This area could be easily followed by noncontrast CT scanning to assess for global climate change analyst time. Gastroenterology consultation may be warranted given the large pancreatic ductal calculus identified. Dictated by: Claude Mulligan M.D. on 12/17/2016 at 10:12 Additional Diagnostics [facility] DateTimeAnalyzed 10:17:00 -_ pH ____7.197 - 7.350 7.450 pCO2 ___21.3__ -mmHg 35.0 45.0 pO2 102 -mmHg 69.0 116 HCO3- ____8.0__ -mmol/L 22.0 26.0 Assessment & Plan This is a lady who came in with abdominal pain, nausea and vomiting. Again, he has no abdominal tenderness on my examination as well as denying any abdominal pain when I saw her. Overall her clinical situation does seem to be improving. Her kidney insufficiency is persistent and acidosis is still present. I spoke with the cabin man who also spoke with the gastroenterology and Bianca Mcadams for possible transfer and I was informed by the cabin man that Bianca Mcadams did not think that intervention would be helpful. They recommended finding other sources of infection for the cause of her situation. Again I do not think pancreatitis is likely cause of her deterioration. I even got another opinion from the [facility] GI also believes that there is no acute need to do a mechanical lithotripsy of the pancreas. Therefore, recommend the followin. Continue to follow lipase. 2. Continue to follow LFTs. 3. Continue aggressive fluid resuscitation. 4. Panculture, i.e. awaiting final blood culture results. 5. Chest x-ray concerning for developing pneumonia which the patient is already on Zosyn. 6. Continue to treat diabetic ketoacidosis. 7. Defer renal issues to the Nephrology service who are consulted. 8. Awaiting fecal elastase, fecal trypsinogen, fecal trypsin 9 . Not able to visualize the gallbladder well last time. Therefore, recommend doing a HIDA scan and ultrasound. This could be a potential source of infection. If ultrasound shows any kind of fluid collection, I would recommend tapping it and sending for a culture. If ultrasound and HIDA scan is unremarkable, we will do the barium upper GI and small bowel follow-through to see if there is any kind of thumbprinting or inflammation of the bowel. VTE Prophylaxis: Sub-Q Heparin (Unfractionated) VTE Mechanical Devices: Intermittant Pneumatic CD Resuscitation Status: CPR: Attempt Resuscitation Jani Salder MD Dec 19, 2016 16:24 - Avoid Nephrotoxic insults including contrast studies - Nephrology consulting. We appreciate her expertise. 4. Lactic acidosis with metabolic acidosis. Present on admission. Resolved. 5. Chronic Hypertension, Low range of normal likely due to hypovolemia - holding all antihypertensive at this time 6. Hyperlipidemia - continue Simvastatin 10 mg HS 7. Hypothyroidism - continue Synthroid 137 mcg daily (70 IV daily) Acetaminophen for mild pain when necessary. Bowel regimen Senna and MiraLAX scheduled and PRN. Zofran when necessary for nausea and vomiting. SubQ heparin held for now. SCDs in place. High-risk medications: IV Dilaudid Disposition: Patients outlook remains guarded. She is likely here for at least 5 -10 more days or transfer to a facility that can manage her unique pancreatic pathology. VTE Prophylaxis: Sub-Q Heparin (Unfractionated) VTE Mechanical Devices: Intermittant Pneumatic CD Resuscitation Status: CPR: Attempt Resuscitation Jani Sadler MD Dec 19, 2016 16:24
--- NOTE | 2016-12-19 16:43 | CONS ---
[address] [address] CONSULTATION REPORT PATIENT: ADE GARRETT : 1940 MR#: [id number] ADMIT: 12/17/2016 JOB ID: [id number] DATE OF SERVICE: 12/19/2016 PULMONARY CRITICAL CARE CONSULTATION NOTE: The patient is a 76-year-old woman seen in consultation at the request of Dr. Scruggs for septic shock and diabetic ketoacidosis. HISTORY OF PRESENT ILLNESS: The patient is a 76-year-old woman with type 2 diabetes who reportedly has been having very high blood sugars for the last few weeks. The emergency department also indicates that the patient was complaining of diffuse abdominal pain on presentation, but at this point she denies abdominal pain completely. She also denies any vomiting, fever, chills, diarrhea. She had been having some nausea at the time of presentation but denies any right now. On initial presentation her blood sugars were in the high 600s and she was clearly in DKA with a pH of 6.9 on presentation. She was admitted to the ICU and started on the DKA protocol with insulin drip. She was also given large volume fluid resuscitation and had to be started on a vasopressor-norepinephrine. She has been here now for 48 hours or more. She remains on norepinephrine at a low dose 0.05, which is slightly improved from yesterday 0.08. She presented with acute kidney injury that is unchanged and potentially slightly worse. Symptom martin, she currently denies any abdominal pain. She does look ill to me. PAST MEDICAL HISTORY: Type 2 diabetes. Chronic kidney disease, hypertension, hyperlipidemia, hypothyroidism. FAMILY HISTORY: Per review of medical records her father had coronary artery disease. Multiple family members--sibling, daughter and son have diabetes. SOCIAL HISTORY: Never smoker. PHYSICAL EXAMINATION: Vital signs reviewed. Temperature 36.6, pulse 92, respirations 27, BP 105/46, sats 91% on room air. General: Elderly woman lying in bed, pale appearing, alert, answering questions. Ill appearing. Neck: No cervical lymphadenopathy. HEENT: No ulcers or thrush. Chest: Clear to auscultation. Heart: Soft systolic murmur left sternal border. Abdomen nontender and nondistended. Extremities: No cyanosis, clubbing, edema. Skin: No rashes. LABORATORIES: Reviewed. WBC on presentation was 11 and is down to seven now. Platelets down to 112 from 279 on December 17, hemoglobin 10.4 from 12.3. Coags on admission were normal. Fibrinogen today was 422. Chemistry reviewed. Sodium is 134. Chloride is up to 112 from 94 on admission. Bicarb is still 9. BUN 41, creatinine 2.15. Creatinine on admission was 1.85. We do not have any prior baseline creatinines in our system. Lactate is 1.2 down from four on day of admission. Calcium 6.11 down from 8.3 on admission. Ionized calcium is pending. Total protein 3.9, lipase 31 down from 128 on admission. LFTs have been normal throughout. AST 18, ALT 16, alk phos 29, total bili of 0.2. IMAGING STUDIES: The patient had a CT abdomen and pelvis on December 17 that showed glandular parenchyma of the pancreas was virtually entirely replaced by omentum or fat. Pancreatic duct is distended at 1 cm and a large 1 x 2 cm calculus is seen in the pancreas. There are two additional separate cystic structures. It is unclear if these are cysts or if they are just side branch dilations of the pancreatic duct. MRCP was done on December 18. This was severely limited due to motion artifact but again confirms findings of abnormal appearance of pancreas and a 2 cm stone in the pancreatic duct causing obstruction and much of these findings appear chronic but they cannot rule out acute on chronic pancreatitis. Fluid filled prominent small bowel loops consistent with ileus. Small bilateral pleural effusions. Chest x-ray reviewed. No significant abnormal findings on today's x-ray. Arterial blood gas from this morning shows pH of 7.24, pCO2 of 18, pO2 of 95, and bicarb of 7. ASSESSMENT AND RECOMMENDATIONS: 1. Septic shock. 2. Diabetic ketoacidosis. 3. Acute on chronic pancreatitis with obstructing pancreatic stone. 4. Acute on chronic kidney injury. 5. Thrombocytopenia-likely consumptive. No sign of disseminated intravascular coagulopathy. This 76-year-old woman is presenting with abdominal pain which has resolved, and findings suggestive of acute gallstone pancreatitis with what appears to be a chronic obstructing stone in the pancreatic duct measuring about 2 cm. She has been on pressors now for almost three days. Her kidney function does not appear to be improving based on creatinine although she is still making urine about 1200 cc a day. Her calcium and albumin have dropped. She has had massive fluid resuscitation and I think in part her current acidosis is due to hyperchloremia. We are going to stop all saline and start her on a bicarb drip instead to try to correct this and help her acidosis. She is doing an excellent job of respiratory compensation but despite that, her pH is 7.24. I think correcting her acidosis will help her come off of pressors also. I do not think she needs any more fluid resuscitation. I am really concerned about this pancreatic stone and whether she needs an intervention for this especially with her parameters not improving as I would hope. I will give a call to GI and talk to them about potential options--ERCP, transfer to another facility, etc. It appears from GI's note yesterday that they have already spoken with the optical laboratory mechanic at [facility] over the weekend who felt that an acute intervention was not required since the stone appeared chronic and the patient was currently asymptomatic. She is on deep venous thrombosis prophylaxis. She is on heparin subcu. I think we should continue this for DVT prophylaxis as long as her platelets are above 50. There is no indication for GI prophylaxis. Critical care time 60 minutes.
--- NOTE | 2016-12-19 17:10 | NUR ---
P: Hemodynamics, Resp, Neuro, Nutrition, Social I,E: Pt continues to require norepi, however, I have been able to decrease this to 0.04mcg at this time. BP is currently 107/35. UOP has been brisk this shift and is greater than one liter. CVP is 10 at this time. Pt continues on room air with sats high 90's to 100's. RR remains high in the 20's to 30's. Pt has slept this shift, only waking when asked a question or being spoken to directly. She dozes back to sleep easily. She states she feels sick. She denies any pain. She has had one extra large pasty soft stool this morning. She remains NPO. Pt's daughter and were able to come and visit today and was able to update them on the plan of care and pt's condition. I have also updated daughter throughout the day. Pt has been changed from DKA to NDKA protocol today and she is currently on 0.8 units of insulin and last OT was 128.
--- NOTE | 2016-12-19 18:14 | NUR ---
Pt's rings were taken home by daughter and today Pt's 2 rings that were removed yesterday because of the edema in her hands were given to pt's family to take home today.
[2016-12-19] MEDS ORDERED: 0.9% Sodium Chloride 500 ML ONE (19:19)
[2016-12-19] MEDS ORDERED: 0.9% Sodium Chloride 250 ML ONE (19:25)
--- NOTE | 2016-12-19 19:56 | DRSVH ---
PROCEDURE: US ABDOMEN, LIMITED ([id number]) INDICATIONS: Abd pain TECHNIQUE: Real-time focused scanning was performed of the abdomen, with image documentation. COMPARISON: [facility], MR, MR AUGUSTINE LOGAN, 12/18/2016, 12:39. FINDINGS: Liver is grossly unremarkable. Gallbladder is within normal limits. No sonographic Mar's sign. Bile ducts are not well seen however no gross biliary dilatation within the cherry hepatis. Pancreatic duct appears prominent, and there is an 11 mm echogenic focus, with shadowing, presumed ca lculus seen in the region of the pancreatic head. No abdominal free fluid IMPRESSION: Findings likely reflect calculus in the region of the pancreatic head with associated pancreatic duct dilatation. This would correlate with the findings on a recent MRI dated yesterday, please see repor t. Normal appearance of the gallbladder. No free fluid. Dictated by: Stanford Desouza M.D. on 12/19/2016 at 19:50 Approved by: Stanford Desouza M.D. on 12/19/2016 at 19:55
[2016-12-19 20:46] VITALS: BP 113/51; PULSE 97; RESP 23; O2SAT 100
[2016-12-19 22:19] LABS: Magnesium 1.7 mg/dL (1.6-2.6); Phosphorus 3.9 mg/dL (2.5-4.9)
[2016-12-19] MEDS ORDERED: Calcium GLUCOnate 10% 1 Gm/50 mL NS IV ONE ×2 (22:25)
[2016-12-19] MEDS ORDERED: KCl 20 mEq/100 mL IV Premix (K 3 - 3.7 & Cr 2.1 - 2.9) IV ONE (22:25)
--- NOTE | 2016-12-19 23:04 | ABG ---
DateTimeAnalyzed 22:58:00 -_ pH ____7.270 - pCO2 ___28.1__ -mmHg pO2 ___41.9__ -mmHg HCO3- ___12.5__ -mmol/L ABE __-12.9__ -mmol/L tHb ____9.0__ -g/dL O2Hb ___73.7__ -% COHb ____1.0__ -% MetHb ____1.1__ -% sO2 ___75.3__ -% FIO2 ___21.0__ -% Drawn By ____nurse - Date/Time Notified____ 23:04:00 -_ Notified Whom _Ryan, RN - B 752 -mmHg tO2 ____9.3__ -Vol% Edgardo test N/A -
[2016-12-19 23:34] VITALS: BP 122/50; PULSE 101; RESP 24; O2SAT 100
--- NOTE | 2016-12-20 00:41 | NUR ---
Late Entry 12/18-12/19 NOC Shift Resident MD paged multiple times regarding patient's respiratory status including high respiratory rate. ABG ordered and results conveyed to physician. After much discussion, fluids changed from 1/2NS w/75MEQ of NAHCO3 at 125ml/hour to 1/2NS at 125ml/hour and D10 was increased from 119 to 125ml/hour. DKA protocol slightly modified as stated. Serial ABGs done showing worsening HCO3 and low CO2. MD made aware of this. Critical Lab: Calcium and low K conveyed to MD and replaced with 2Grams of Calcium Gluconate and 20Meq of KCL. Pt remained in SR throughout the night. SpO2 100% on RA with RR ranging from 25-35. Day RN informed of needs to clarify NA HCO3 order, DKA vs NDKA insulin gtt order? and if we need an ionized calcium or if we intend to keep replacing with IV Calcium. Pt had 2 XL pasty pale BMs. Stool sample collected and sent to lab for analysis. Levy patent to gravity draining 1200+ of pale colored urine.
[2016-12-20 05:15] VITALS: BP 109/62; PULSE 98; RESP 45; O2SAT 100
[2016-12-20] MEDS: Sodium Bicarb 8.4% Inj 150 MEQ in Dextrose 5% 1,000 ML IV SCH ×2 (05:27→16:43)
[2016-12-20 05:46] LABS: Mean Corpuscular Hemoglobin 33.7 pg (27.0-35.0); Mean Corpuscular Volume 94.9 fL (81-100); Platelet Count 84 bil/L (150-400)
[2016-12-20 06:02] LABS: BASOPHILS % (AUTO) 0.2 % (0-3); MONOCYTES % (AUTO) 13.2 % (4-12); NEUTROPHILS % (AUTO) 69.7 % (40-74)
--- NOTE | 2016-12-20 06:43 | NUR ---
Levophed Pressers titrated to off during the night. Pt maintaining MAP of greater than 60. Pt continues to have large loose and pasty stools. Pt more alert and states she is starting to feel slightly better. Pt still remains passive.
[2016-12-20 07:36] VITALS: BP 114/54; PULSE 92; RESP 23; O2SAT 95
[2016-12-20] MEDS: Levothyroxine 100 mCg/5 mL Inj IV SCH (07:56)
[2016-12-20] MEDS: Albumin 25% 25 GM in IV Premix 1 EACH IV SCH ×3 (07:56→20:39)
--- NOTE | 2016-12-20 08:23 | ABG ---
DateTimeAnalyzed 08:16:31 -_ pH ____7.364 - pCO2 ___25.9__ -mmHg pO2 ___77.7__ -mmHg HCO3- ___14.8__ -mmol/L ABE ___-9.7__ -mmol/L tHb ___10.1__ -g/dL O2Hb ___95.1__ -% COHb ____1.0__ -% MetHb ____0.5__ -% sO2 ___96.5__ -% FIO2 ___21.0__ -% Drawn By MT - Date/Time Notified____ 08:23:00 -_ Notified By Mt - Notified Whom ___McCart - B 755 -mmHg K+ ____3.2__ -mmol/L tO2 ___13.6__ -Vol% Edgardo test _Positive -
[2016-12-20] MEDS ORDERED: Potassium Chloride Inj 20 MEQ in Dextrose 5% 250 ML IV ONE ×2 (09:30→15:45)
--- NOTE | 2016-12-20 10:08 | NUR ---
NUTRITION FOLLOW UP: ASSESS: 76 YO F admitted to CCU with acute abdominal pain and DKA. She was found to have acute gallstone pancreatitis with a chronic obstructing stone in the pancreatic duct. GI does not believe acute intervention is required at this time. Pt has been NPO X 3 days. Her abdominal pain has improved. Diet advanced this AM to full liquid. Pt continues to be very tired and sleeps most of day PMHx: Vitamin D deficiency, hypothyroidism, dyslipidemia, type 2 diabetes, CKD, HTN, osteopenia. DIET: NPO. LABS: Reviewed. Cl 110, Bun 39, Hand Tube Bender 2.07, Glu 138, Ca 6.8, Alb 2.9, lipase 10, A1c 15.5 MEDICATIONS: Reviewed. Insulin GI: 2 BM 12/19. SKIN: No issues reported. ANTHROPOMETRICS: Current Wt: 73.7 kg, BMI: 31.7 kg/m2. IBW: 45.5 kg (131.1% IBW), Admit wt: 59.5 kg. ESTIMATED NEEDS: BMI Calories: 1620-1845kcal/day (22-25kcal/kg) Protein: 55-70g/day (1.2-1.5g/kg) NUTRITION DIAGNOSIS: 1) Altered nutrition-related labs related to hyperglycemia, DKA, as evidenced by glucose 358, A1c 15.5.---PERSISTS. 2) Inadequate oral intake related to decreased ability to consume sufficient energy as evidenced by current NPO status--PERSISTS INTERVENTION: 1) Will monitor for PO tolerance now that pt has a diet order. If PO avg is less than 50%, recommend addition of snack/supplement 2) Once patient is more awake, will offer inpatient diabetes education. MONITOR/EVALUATE: Diet tolerance, wt, DM ed, labs, GI/nutrition status. Follow per high nutrition risk guidelines.
[2016-12-20] MEDS: Dextrose 5% 1,000 ML IV SCH ×2 (10:10→20:36)
--- NOTE | 2016-12-20 11:16 | PCM.PNMED ---
Subjective Date of Service Dec 20, 2016 Subjective Patient's condition appears to be improving somewhat. Her blood pressure is averaging between 90 and 120, her intake and output 637 and 2800 for the last 24 hours. She is more alert and interactive and denies any chest pain, shortness of breath nausea or vomiting. This morning her sodium is 139, potassium 3.5, chloride 110 and bicarbonate of 14. BUN and creatinine are 39 and 2.07 respectively. Exam Vital Signs Vital Sign - Last Date Time Temp Pulse Resp B/P Pulse Ox O2 Delivery O2 Flow Rate FiO2 12/20/16 07:36 35.8 92 23 114/54 95 Room Air 12/19/16 20:46 21 12/17/16 08:00 1.00 Intake and Output 12/19/16 12/19/16 12/20/16 Cumulative From/Thru 15:00 23:00 07:00 12/17/16 00:25 - 12/19/16 18:40 Intake Total 2598 ml 17385 ml Output Total 1500 ml 4200 ml Balance 1098 ml 79088 ml Intake Oral 0 ml IV Total 2598 ml 99984 ml Output Urine Total 1500 ml 4200 ml # Bowel Movements 2 Exam HEENT examination is remarkable for pale sclera and some bitemporal wasting. Neck is supple without adenopathy thyromegaly or jugular venous distention. Lungs were clear to auscultation. Heart is regular and rhythmical with a soft systolic murmur. Abdomen was soft with diminished bowel sounds. There is no tenderness rebound guarding masses or hepatosplenomegaly. Extremities not show any evidence of any clubbing cyanosis or edema. Lab and Diagnostics Result Diagram: 12/20/16 0530 12/20/16 0530 X-Rays, CTs and MRIs CT Abd / Pelvis Interpretation Conclusion: Bubbles of air in the anterior abdominal wall and adjacent extra peritoneal tissues. This could be related to recent subcutaneous injections or other instrumentation. Please correlate clinically. No abscess in the soft tissues. Bowel pattern possibly consistent with constipation. Focally dilated distal pancreatic duct versus cystic lesion in the tail of the pancreas. Other findings as noted above. Study type: Abdominal CT no contrast Read by [facility] radiologist CT ABDOMEN AND PELVIS WITHOUT CONTRAST ABDOMEN: The pancreas is quite abnormal, with the glandular parenchyma virtually completely fatty atrophied. The pancreatic duct from the pancreatic neck towards the pancreatic tail is abnormally dilated measuring up to 1.1 cm in maximal dimension associated with a large dense calculus within the pancreatic duct at the pancreatic neck level measuring up to 1.2 cm AP and 2.1 cm transverse. This has a radiodensity of 1666 Hounsfield units. At the pancreatic tail there is a 1.3 and 2.0 cm set of cystic structures in the expected course of the pancreatic duct. Peritoneum and bowel: Unenhanced bowel loops demonstrate normal wall thickness and caliber. No free fluid. There may be a slight amount of free air at the anterior border of the midline of the abdomen/pelvis junction, above the umbilicus, where within the rectus sheath in the immediate adjacent subcutaneous fat several gas bubbles can be seen and at one point a communication between what appears to be in the anterior peritoneal gas bubble and the subcutaneous fat may be present (centered on series 2, image 53). IMPRESSION: 1. The study is significantly limited in anatomic detail by the absence of oral and intravenous contrast. With this qualification no definite underlying malignancy is seen. No definite focus of infection is found. 2. There is an unusual finding of several gas bubbles within the subcutaneous fat and the rectus sheath of the low abdomen/pelvis junction area, with possible small bubble of gas within the peritoneal space immediately adjacent. Please correlate for whether some form of lacerating injury has occurred in this area, versus surgical intervention or even medication injection into that area. 3. Throughout the abdomen and pelvis there is no sign of abscess formation. Colonic obstipation is present bilaterally. 4. There is an unusual appearance of the pancreas where the glandular parenchyma is virtually entirely omentum or sized into fat. The pancreatic duct is prominently distended at 1 cm through the pancreatic body and tail, secondary to a large ovoid calculus measuring up to 1.2 x 2.1 cm. Through the pancreatic tail 2 separate cystic structures can be seen, relatively small in size and likely sidebranch dilatations of the pancreatic ducts. This area could be easily followed by noncontrast CT scanning to assess for pattern changer and repairer time. Gastroenterology consultation may be warranted given the large pancreatic ductal calculus identified. Dictated by: Claude Mulligan M.D. on 12/17/2016 at 10:12 Additional [facility] DateTimeAnalyzed 10:17:00 -_ pH ____7.197 - 7.350 7.450 pCO2 ___21.3__ -mmHg 35.0 45.0 pO2 102 -mmHg 69.0 116 HCO3- ____8.0__ -mmol/L 22.0 26.0 Assessment & Plan Impression #1 acute kidney injury which is slowly resolving #2 non-anion gap metabolic acidosis #3 hypokalemia Recommendations #1 continue on bicarbonate drip and continue to replace potassium in the form of potassium chloride. VTE Prophylaxis: Sub-Q Heparin (Unfractionated) VTE Mechanical Devices: Intermittant Pneumatic CD Resuscitation Status: CPR: Attempt Resuscitation Eros Bains DO Dec 20, 2016 11:16
--- NOTE | 2016-12-20 11:24 | DRSVH ---
PROCEDURE: X-RAY CHEST ONE VIEW, PORTABLE ([id number]) INDICATIONS: dyspnea TECHNIQUE: One view of the chest was acquired. COMPARISON: [facility], CR, XR CHEST 1VW (PORTABLE), 12/18/2016, 4:50. FINDINGS: Surgical changes and devices: Stable positioning of right IJ CVL. Lungs and pleura: Interval increase in bibasilar airspace opacities, left greater than right. Trace left pleural effusion. No pneumothorax. Mediastinum: Mediastinal contours appear normal. Heart size is normal. Bones and chest wall: No suspicious bony lesions. Overlying soft tissues appear unremarkable. IMPRESSION: 1. Stable positioning of right IJ CVL. 2. Bibasilar atelectasis versus aspiration or pneumonia, left greater than right. Dictated by: Alfredo NIX Interpreted: Iesha Mauricio MD on 12/20/2016 at 11:23 Transcribed by: CINDY on 12/20/2016 at 11:24 Approved by: Iesha Mauricio M.D. on 12/20/2016 at 17:26
[2016-12-20 11:43] VITALS: BP 110/49; PULSE 94; RESP 33; O2SAT 96
[2016-12-20] MEDS: Piperacillin-Tazo 3.375 Gm Inj 3.375 GM in Dextrose 5% Minibag Plus 50 ML IV SCH (11:50)
--- NOTE | 2016-12-20 13:04 | PROG NOTE ---
[address] [address] PROGRESS NOTE PATIENT: ADE GARRETT : 1940 MR#: [id number] ADMIT: 12/17/2016 JOB ID: [id number] DATE: 12/20/2016 PULMONARY/CRITICAL CARE PROGRESS NOTE: The patient is a 76-year-old woman with history of type 2 diabetes, chronic pancreatitis with large pancreatic duct stone, presenting in septic shock and diabetic ketoacidosis. INTERVAL HISTORY: She has been successfully weaned off of vasopressors overnight. Denies any abdominal pain, fever, or chills. She does have a mild cough. REVIEW OF SYSTEMS: As above. PHYSICAL EXAMINATION: Vital signs reviewed. Temperature 36.5, pulse 94, respirations 33, BP 110/49, sats 96% on room air. General: Pale elderly woman, lying in bed. Appears comfortable. Answering questions appropriately. Chest: Clear to auscultation. Abdomen: Soft, nontender. LABORATORIES: Reviewed. WBC 5.2, hemoglobin 9.2. Platelets 84, down from 112 and 279 on day of admission. Chemistry notable for creatinine down slightly to 2.07, bicarb 14. Procalcitonin down to 0.77 from 1.05 on December 19. Cultures: No growth. Arterial blood gas today shows significant improvement in acidosis with pH 7.36, pCO2 of 25, pO2 of 77, and bicarb of 14. ASSESSMENT: 1. Septic shock. 2. Chronic pancreatitis-possible acute superimposed. 3. Diabetic ketoacidosis. 4. Metabolic acidosis-improved. 5. Acute kidney injury-stable. 6. Thrombocytopenia. RECOMMENDATIONS: A 76-year-old woman with what appears to be chronic pancreatitis due to a large 2 cm pancreatic duct stone presenting in DKA and septic shock of unclear etiology. I spoke again with the clinical trial head at [facility], Dr. Dalal, who did not think her chronic pancreatitis was the source of this acute episode. I am starting to wonder if all of this was DKA due to chronic pancreatitis and hypotension due to the severity of her acidosis. Now that we were able to correct her acidosis with a bicarb drip, it appears her hypotension has resolved and she is completely off pressors, appearing stable. We will continue the bicarb drip at a lower rate of 75 mL an hour for the next few hours and probably plan on stopping it after that. Her serum bicarb, while improved, is still quite low at 14. She is getting a HIDA scan per Dr. Sadler from GI. If this is negative, I am not sure we need to do any additional aggressive workup. She does need an outpatient referral to Gastroenterology at [facility] for consideration of lithotripsy for this stone. She is on Zosyn and will continue that. As far as the thrombocytopenia, we stopped her heparin and we are checking a HIT antibody. We are also checking for hemolysis labs and a peripheral smear. If all of this is negative, then we need to consider if Zosyn is causing the thrombocytopenia and perhaps stopping it and switching to a different agent such as a carbapenem. She is on no DVT prophylaxis at this time. No indication for GI prophylaxis. TIME: Critical care time is 45 minutes.
--- NOTE | 2016-12-20 15:48 | PCM.PNMED ---
Subjective Date of Service Dec 20, 2016 Subjective Overnight: Pt continued on DKA protocol. Norepinephrine was titrated to 0.055 this morning for goal MAP of 60. Today: She reports sore throat, but denies abdominal pain, N/V/D, shortness of breath, fevers, chills. Exam Vital Signs Vital Sign - Last Date Time Temp Pulse Resp B/P Pulse Ox O2 Delivery O2 Flow Rate FiO2 12/20/16 07:36 35.8 92 23 114/54 95 Room Air 12/19/16 20:46 21 12/17/16 08:00 1.00 Intake and Output 12/19/16 12/19/16 12/20/16 Cumulative From/Thru 15:00 23:00 07:00 12/17/16 00:25 - 12/19/16 18:40 Intake Total 2598 ml 99219 ml Output Total 1500 ml 4200 ml Balance 1098 ml 72214 ml Intake Oral 0 ml IV Total 2598 ml 79197 ml Output Urine Total 1500 ml 4200 ml # Bowel Movements 2 Exam General: Alert, Oriented X3, Cooperative, No acute Distress but appears lethargic and more somnolent since last interview yesterday. Eyes: PERRLA, Scleral Anicteric Mouth: Mouth Normal, Mucous Membranes dry Neck: Supple, no Thyromegaly, trachea central. Chest & Lungs: Clear to auscultation & percussion, No adventitious breath sounds, no crackles, no wheeze Cardiovascular: Normal S1, Normal S2, Systolic murmur present, Regular Rate/ Rhythm, (No JVD, no peripheral edema) Pulses: Radial (present and equal), Dorsalis Pedi (present and equal) Abdomen: Soft, Non-tender, Non-distended, Normoactive bowel tones. Musculoskeletal: Unremarkable. Normal range of motion, no swollen or erythematous joints Extremities: No edema, no cyanosis, no clubbing. Skin: No rashes. Warm and dry, no erythematous areas Neurological: Grossly neurologically intact, has generalized weakness, Normal Speech, Sensation Intact Lymphatic: Lymph nodes Cervical and Axillary not palpable. IVs and Medications Medications Reviewed: Medications were reviewed in detail Lab and Diagnostics Result Diagram: 12/20/1630 12/20/16 0530 X-Rays, CTs and MRIs CT Abd / Pelvis Interpretation Conclusion: Bubbles of air in the anterior abdominal wall and adjacent extra peritoneal tissues. This could be related to recent subcutaneous injections or other instrumentation. Please correlate clinically. No abscess in the soft tissues. Bowel pattern possibly consistent with constipation. Focally dilated distal pancreatic duct versus cystic lesion in the tail of the pancreas. Other findings as noted above. Study type: Abdominal CT no contrast Read by [facility] radiologist CT ABDOMEN AND PELVIS WITHOUT CONTRAST ABDOMEN: The pancreas is quite abnormal, with the glandular parenchyma virtually completely fatty atrophied. The pancreatic duct from the pancreatic neck towards the pancreatic tail is abnormally dilated measuring up to 1.1 cm in maximal dimension associated with a large dense calculus within the pancreatic duct at the pancreatic neck level measuring up to 1.2 cm AP and 2.1 cm transverse. This has a radiodensity of 1666 Hounsfield units. At the pancreatic tail there is a 1.3 and 2.0 cm set of cystic structures in the expected course of the pancreatic duct. Peritoneum and bowel: Unenhanced bowel loops demonstrate normal wall thickness and caliber. No free fluid. There may be a slight amount of free air at the anterior border of the midline of the abdomen/pelvis junction, above the umbilicus, where within the rectus sheath in the immediate adjacent subcutaneous fat several gas bubbles can be seen and at one point a communication between what appears to be in the anterior peritoneal gas bubble and the subcutaneous fat may be present (centered on series 2, image 53). IMPRESSION: 1. The study is significantly limited in anatomic detail by the absence of oral and intravenous contrast. With this qualification no definite underlying malignancy is seen. No definite focus of infection is found. 2. There is an unusual finding of several gas bubbles within the subcutaneous fat and the rectus sheath of the low abdomen/pelvis junction area, with possible small bubble of gas within the peritoneal space immediately adjacent. Please correlate for whether some form of lacerating injury has occurred in this area, versus surgical intervention or even medication injection into that area. 3. Throughout the abdomen and pelvis there is no sign of abscess formation. Colonic obstipation is present bilaterally. 4. There is an unusual appearance of the pancreas where the glandular parenchyma is virtually entirely omentum or sized into fat. The pancreatic duct is prominently distended at 1 cm through the pancreatic body and tail, secondary to a large ovoid calculus measuring up to 1.2 x 2.1 cm. Through the pancreatic tail 2 separate cystic structures can be seen, relatively small in size and likely sidebranch dilatations of the pancreatic ducts. This area could be easily followed by noncontrast CT scanning to assess for exchange floor manager time. Gastroenterology consultation may be warranted given the large pancreatic ductal calculus identified. Dictated by: Claude Mulligan M.D. on 12/17/2016 at 10:12 Additional [facility] DateTimeAnalyzed 10:17:00 -_ pH ____7.197 - 7.350 7.450 pCO2 ___21.3__ -mmHg 35.0 45.0 pO2 102 -mmHg 69.0 116 HCO3- ____8.0__ -mmol/L 22.0 26.0 Assessment & Plan Donna Zuluaga is a 76 year old female with Diabetes, Hypertension, Dyslipidemia and Hypothyroidism who presents to [facility] emergency department with complaints of diffuse abdominal pain and 4 weeks of elevated blood sugars (400-600) at home with no obvious inciting event. #. Acute on chronic pancreatitis with obstructing pancreatic stone, present on admission. Active. - Abdominal pain on admission, elevated lipase, CT abdomen as above. MRCP was limited due to motion but showed likely chronic pancreatitis with fatty atrophy with a large calculus at the head of the pancreas with multiple dilated side- branches of the main pancreatic duct. Discussed with Dr. Sadler; this is likely not an acute pancreatitis as there is minimal pain and there is very little viable pancreas left at this point. 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 - D5W sodium bicarb @ 100 ml/hr - IV Dilaudid PRN - Ordered stool trypsin & trypsinogen and stool pancreatic elastase - Dr. Sadler of GI is consulted. We appreciate his input. - RUQ US as above. - HIDA scan results pending. #. Diabetic Ketoacidosis. Present on admission. Improving. - Possibly 2nd to pancreatic burn out or pancreatitis. AG 17 today. Will increase fluids. - C-peptide 0.9. is low (N 1.1-4.4) - ABG as above. - Continue Insulin drip till anion gap closes (Anion gap < 12) - Holding Metformin and Actos - Stop DKA protocol and switch to non-DKA protocol. - D5W sodium bicarb @ 100 ml/hr #. Acute Kidney injury on Chronic Kidney disease. Present on admission. Improving. - Baseline Creatinine 1.04-1.11. Chronic issue related to Diabetic nephropathy - Cre 1.99 on admission. BUN 45. currently 2.09 - Acute issue related to pre renal azotemia due to hypovolemia - Sodium bicarb @ 125 ml/hr D5W. - Avoid Nephrotoxic insults including contrast studies - Nephrology consulting. We appreciate their expertise. - ATN currently, FENa - 7.45%. - K+ repletion 20 IV x 2 today (12/20) #. Septic Shock, present on admission, Resolved. - No clear source of infection identified at this time, however it is possibly pneumonia or atypical. May consider Meningitic sourcel. - Procalcitonin 1.05 12/19. trended down to 0.77 (12/20) - Albumin 25% x 2 (12/19) - Fungitel, sputum and blood fungal cx pending. - Off NE. - Discontinue Zosyn, Start Meropenem. #. Hyperchloremic Metabolic Acidosis, not present on admission, Active. - BiCarb ggt 100 ml / hr with D5 W. #. Thrombocytopenia, not present on admission. Active. - likely consumptive. No sign of disseminated intravascular coagulopathy. - HIT unlikely but panel sent and is pending. - Continue Anticoagulation until plt <50. Heparin SQ. - D/C zosyn and add meropenem, since there is a chance zosyn is causing thrombocytopenia. - Peripheral smear pending. #. Lactic acidosis with metabolic acidosis. Present on admission. Resolved. #. Chronic Hypertension, Low range of normal likely due to hypovolemia - holding all antihypertensive at this time #. Hyperlipidemia - continue Simvastatin 10 mg HS #. Hypothyroidism - continue Synthroid 137 mcg daily (70 IV daily), - today will give 137 IV. - TSH and T4 6.670 and 0.71. #. Hypocalcemia, not present on admission. Active. -due to suspected ongoing pancreatitis - Ca 6.8 today corrected 8.7. Acetaminophen for mild pain when necessary. Bowel regimen Senna and MiraLAX scheduled and PRN. Zofran when necessary for nausea and vomiting. SubQ heparin held for now. SCDs in place. High-risk medications: IV Dilaudid Disposition: pending hospital course Pain Evaluation: Adequate Pain Control VTE Prophylaxis: Sub-Q Heparin (Unfractionated) VTE Mechanical Devices: Intermittant Pneumatic CD Resuscitation Status: CPR: Attempt Resuscitation Attending Statement The patient was seen and examined together with Dr. Daigle on 12/20/2016 and I agree with the history, exam and plan as outlined in the note above. . NATHALIA DAIGLE DO Dec 20, 2016 10:16 Jamar Scruggs MD Dec 20, 2016 18:48
[2016-12-20] MEDS ORDERED: KCl 20 mEq/100 mL(CENTRAL) 20 MEQ in IV Premix 1 EACH IV ONE (16:00)
[2016-12-20] MEDS ORDERED: Meropenem 1 Gm/100 mL NS Minibag Plus IV ONE ×2 (16:05)
[2016-12-20 16:29] VITALS: BP 126/65; PULSE 95; RESP 24; O2SAT 97
[2016-12-20] MEDS: Nystatin 100,000 Unit/Gm 15 Gm Powder TOPICAL SCH ×2 (16:42→20:35)
--- NOTE | 2016-12-20 16:44 | PCM.PNMED ---
Subjective Date of Service Dec 20, 2016 Subjective Patient seems to be more awake and alert. Again she denies any pain especially in the abdomen. Exam Vital Signs Vital Sign - Last Date Time Temp Pulse Resp B/P Pulse Ox O2 Delivery O2 Flow Rate FiO2 12/20/16 16:29 36.8 95 24 126/65 97 Room Air 12/19/16 20:46 21 12/17/16 08:00 1.00 Intake and Output 12/19/16 12/19/16 12/20/16 Cumulative From/Thru 15:00 23:00 07:00 12/17/16 00:25 - 12/19/16 18:40 Intake Total 2598 ml 95653 ml Output Total 1500 ml 4200 ml Balance 1098 ml 07053 ml Intake Oral 0 ml IV Total 2598 ml 70804 ml Output Urine Total 1500 ml 4200 ml # Bowel Movements 2 Exam Patient is alert appropriate Head and neck no icterus Lungs clear anteriorly Cardiovascular regular rate and rhythm, normal S1 and S2 Abdomen soft nontender mild distention now with more active bowel sounds. Skin shows no jaundice Lab and Diagnostics Result Diagram: 12/20/16 0530 12/20/16 0530 X-Rays, CTs and MRIs CT Abd / Pelvis Interpretation Conclusion: Bubbles of air in the anterior abdominal wall and adjacent extra peritoneal tissues. This could be related to recent subcutaneous injections or other instrumentation. Please correlate clinically. No abscess in the soft tissues. Bowel pattern possibly consistent with constipation. Focally dilated distal pancreatic duct versus cystic lesion in the tail of the pancreas. Other findings as noted above. Study type: Abdominal CT no contrast Read by [facility] radiologist CT ABDOMEN AND PELVIS WITHOUT CONTRAST ABDOMEN: The pancreas is quite abnormal, with the glandular parenchyma virtually completely fatty atrophied. The pancreatic duct from the pancreatic neck towards the pancreatic tail is abnormally dilated measuring up to 1.1 cm in maximal dimension associated with a large dense calculus within the pancreatic duct at the pancreatic neck level measuring up to 1.2 cm AP and 2.1 cm transverse. This has a radiodensity of 1666 Hounsfield units. At the pancreatic tail there is a 1.3 and 2.0 cm set of cystic structures in the expected course of the pancreatic duct. Peritoneum and bowel: Unenhanced bowel loops demonstrate normal wall thickness and caliber. No free fluid. There may be a slight amount of free air at the anterior border of the midline of the abdomen/pelvis junction, above the umbilicus, where within the rectus sheath in the immediate adjacent subcutaneous fat several gas bubbles can be seen and at one point a communication between what appears to be in the anterior peritoneal gas bubble and the subcutaneous fat may be present (centered on series 2, image 53). IMPRESSION: 1. The study is significantly limited in anatomic detail by the absence of oral and intravenous contrast. With this qualification no definite underlying malignancy is seen. No definite focus of infection is found. 2. There is an unusual finding of several gas bubbles within the subcutaneous fat and the rectus sheath of the low abdomen/pelvis junction area, with possible small bubble of gas within the peritoneal space immediately adjacent. Please correlate for whether some form of lacerating injury has occurred in this area, versus surgical intervention or even medication injection into that area. 3. Throughout the abdomen and pelvis there is no sign of abscess formation. Colonic obstipation is present bilaterally. 4. There is an unusual appearance of the pancreas where the glandular parenchyma is virtually entirely omentum or sized into fat. The pancreatic duct is prominently distended at 1 cm through the pancreatic body and tail, secondary to a large ovoid calculus measuring up to 1.2 x 2.1 cm. Through the pancreatic tail 2 separate cystic structures can be seen, relatively small in size and likely sidebranch dilatations of the pancreatic ducts. This area could be easily followed by noncontrast CT scanning to assess for cover creaser time. Gastroenterology consultation may be warranted given the large pancreatic ductal calculus identified. Dictated by: Claude Mulligan M.D. on 12/17/2016 at 10:12 Additional Diagnostics [facility] DateTimeAnalyzed 10:17:00 -_ pH ____7.197 - 7.350 7.450 pCO2 ___21.3__ -mmHg 35.0 45.0 pO2 102 -mmHg 69.0 116 HCO3- ____8.0__ -mmol/L 22.0 26.0 Assessment & Plan This is a lady who came in with abdominal pain, nausea and vomiting. she seems to be doing better than yesterday. Kidneys are holding. Acidosis seems to be better. No source of infection found at this point. Again there is no acute need to do a mechanical lithotripsy of the pancreas.ultrasound was unremarkable. Awaiting HIDA scan result. If HIDA scan is unremarkable, we will now proceed with small bowel follow-through as long as she continues to improve. Still awaiting fecal elastase level. Again recommend looking for another source of systemic inflammation. Therefore, recommend the followin. Continue to follow lipase. 2. Continue to follow LFTs. 3. Continue fluid resuscitation with bicarbonate. 4. Cultures thus far negative 5. Chest x-ray concerning for developing pneumonia which the patient is already on Zosyn. 6. Diabetic ketoacidosis may have already been resolved. defer managed to the hospital service 7. kidneys are improving at least are not getting worse. defer management to nephrology. 8. Awaiting fecal elastase, fecal trypsinogen, fecal trypsin VTE Prophylaxis: Sub-Q Heparin (Unfractionated) VTE Mechanical Devices: Intermittant Pneumatic CD Resuscitation Status: CPR: Attempt Resuscitation Jani Sadler MD Dec 20, 2016 16:44
--- NOTE | 2016-12-20 16:52 | PCM.PNMED ---
Subjective Date of Service Dec 20, 2016 Subjective GI consult note: This is a 68-year-old female with history significant for diabetes mellitus, hypothyroidism, and CKD who was admitted for diabetic ketoacidosis. Due to mild elevation of lipase and abdominal pain patient had a CT scan that showed pancreatic tissues that were essentially gone with omental fat instead of pancreatic ducts as well as a 1 x 20 mL calculus at the neck of the pancreas. MRCP showed nondilated common bile duct as well as pancreatic fatty atrophy suggestive of chronic pancreatitis along with large obstructing stone with dilated side branches of the main duct with multiple cystic foci. There is also a small loop suggestive of ileus, some mesenteric edema and ascites. Dr. John of [facility] stated that there was no urgent need or benefit from mechanical lithotripsy but elective outpatient lithotripsy could be sought. Today, Exam Vital Signs Vital Sign - Last Date Time Temp Pulse Resp B/P Pulse Ox O2 Delivery O2 Flow Rate FiO2 12/20/16 11:43 36.5 94 33 110/49 96 Room Air 12/19/16 20:46 21 12/17/16 08:00 1.00 Intake and Output 12/19/16 12/19/16 12/20/16 Cumulative From/Thru 15:00 23:00 07:00 12/17/16 00:25 - 12/19/16 18:40 Intake Total 2598 ml 40808 ml Output Total 1500 ml 4200 ml Balance 1098 ml 68770 ml Intake Oral 0 ml IV Total 2598 ml 72729 ml Output Urine Total 1500 ml 4200 ml # Bowel Movements 2 Exam General: No acute distress, well-developed, well-nourished, appropriately interactive HEENT: Normocephalic, atraumatic. External ears without defect. Pupils equal, round, and reactive to light and accommodation. Anicteric sclerae, moist conjunctivae, and no lid lag. Oropharynx free of erythema and cobble stoning with moist mucosa. Neck: Supple with full range of motion. No jugular venous distension. No bruits. No lymphadenopathy or thyromegaly. Cardiovascular: Regular rate and rhythm with no murmurs, rubs, or gallops appreciated Pulmonary: Clear to auscultation bilaterally with no crackles, wheezes, or rhonchi. Normal respiratory effort with no use of accessory muscles. Abdomen: Bowel tones present. Soft, nontender, nondistended. No hepatosplenomegaly or masses appreciated. Extremities: No clubbing, cyanosis, edema, or lymphadenopathy appreciated. Skin: Normal temperature, turgor, and texture; no rash, ulcers, or subcutaneous nodules appreciated. Neurological: Cranial nerves grossly intact. Normal muscle strength, tone, and bulk. Reflexes, coordination, and sensory function within normal limits. No known gait impairment. Psychiatric: Normal mood and affect. Alert and oriented to person, place, and time. Lab and Diagnostics Result Diagram: 12/20/1652912/20/16 0530 X-Rays, CTs and MRIs CT Abd / Pelvis Interpretation Conclusion: Bubbles of air in the anterior abdominal wall and adjacent extra peritoneal tissues. This could be related to recent subcutaneous injections or other instrumentation. Please correlate clinically. No abscess in the soft tissues. Bowel pattern possibly consistent with constipation. Focally dilated distal pancreatic duct versus cystic lesion in the tail of the pancreas. Other findings as noted above. Study type: Abdominal CT no contrast Read by [facility] radiologist CT ABDOMEN AND PELVIS WITHOUT CONTRAST ABDOMEN: The pancreas is quite abnormal, with the glandular parenchyma virtually completely fatty atrophied. The pancreatic duct from the pancreatic neck towards the pancreatic tail is abnormally dilated measuring up to 1.1 cm in maximal dimension associated with a large dense calculus within the pancreatic duct at the pancreatic neck level measuring up to 1.2 cm AP and 2.1 cm transverse. This has a radiodensity of 1666 Hounsfield units. At the pancreatic tail there is a 1.3 and 2.0 cm set of cystic structures in the expected course of the pancreatic duct. Peritoneum and bowel: Unenhanced bowel loops demonstrate normal wall thickness and caliber. No free fluid. There may be a slight amount of free air at the anterior border of the midline of the abdomen/pelvis junction, above the umbilicus, where within the rectus sheath in the immediate adjacent subcutaneous fat several gas bubbles can be seen and at one point a communication between what appears to be in the anterior peritoneal gas bubble and the subcutaneous fat may be present (centered on series 2, image 53). IMPRESSION: 1. The study is significantly limited in anatomic detail by the absence of oral and intravenous contrast. With this qualification no definite underlying malignancy is seen. No definite focus of infection is found. 2. There is an unusual finding of several gas bubbles within the subcutaneous fat and the rectus sheath of the low abdomen/pelvis junction area, with possible small bubble of gas within the peritoneal space immediately adjacent. Please correlate for whether some form of lacerating injury has occurred in this area, versus surgical intervention or even medication injection into that area. 3. Throughout the abdomen and pelvis there is no sign of abscess formation. Colonic obstipation is present bilaterally. 4. There is an unusual appearance of the pancreas where the glandular parenchyma is virtually entirely omentum or sized into fat. The pancreatic duct is prominently distended at 1 cm through the pancreatic body and tail, secondary to a large ovoid calculus measuring up to 1.2 x 2.1 cm. Through the pancreatic tail 2 separate cystic structures can be seen, relatively small in size and likely sidebranch dilatations of the pancreatic ducts. This area could be easily followed by noncontrast CT scanning to assess for change control coordinator time. Gastroenterology consultation may be warranted given the large pancreatic ductal calculus identified. Dictated by: Claude Mulligan M.D. on 12/17/2016 at 10:12 Ultrasound of abdomen on 12/19/2016: IMPRESSION: Findings likely reflect calculus in the region of the pancreatic head with associated pancreatic duct dilatation. This would correlate with the findings on a recent MRI dated yesterday, please see report. Normal appearance of the gallbladder. No free fluid. Dictated by: Stanford Desouza M.D. on 12/19/2016 at 19:50 Additional Diagnostics [facility] DateTimeAnalyzed 10:17:00 -_ pH ____7.197 - 7.350 7.450 pCO2 ___21.3__ -mmHg 35.0 45.0 pO2 102 -mmHg 69.0 116 HCO3- ____8.0__ -mmol/L 22.0 26.0 Assessment & Plan This is a 76-year-old female with history significant for diabetes mellitus and chronic kidney disease who presented to our hospital in DKA with abdominal pain , nausea, and vomiting. The patient continues to have no abdominal tenderness and is denying abdominal pain. As stated before this is unlikely pancreatitis. [facility] and Bianca MIRANDA does not believe that mechanical lithotripsy of the pancreas is urgently needed and that she could have his outpatient. Plan: Abdominal pain: -Continue to follow lipase, LFTs. Continue fluid resuscitation treatment of diabetic ketoacidosis defer to the hospitalist service Defer renal issues nephrology Awaiting fecal the elastase, fecal tryspsinogen, fecal trypsin. - HIDA scan. - May hold off on small bowel follow-through as long as the patient continues to improve. VTE Prophylaxis: Sub-Q Heparin (Unfractionated) VTE Mechanical Devices: Intermittant Pneumatic CD Resuscitation Status: CPR: Attempt Resuscitation Tono Bateman DO Dec 20, 2016 12:09 Jani Sadler MD Dec 20, 2016 16:52
--- NOTE | 2016-12-20 17:12 | DRSVH ---
PROCEDURE: NM HIDA SCAN WITH CCK PHARMACEUTICAL: 5.6 mCi Tc-99m mebrofenin IV; 1.5 mcg CCK IV. INDICATIONS: ABDOMEN PAIN TECHNIQUE: Following intravenous administration of Tc-99m mebrofenin, sequential anterior abdominal images were obtained. To evaluate the contractile response of the gallbladder in response to Cholecystokinin (CC K), sincalide (0.02 g/kg) was administered by slow intravenous infusion approximately 60 minutes aft er the administration of the radiopharmaceutical. Sequential imaging was continued for [address] the start of CCK infusion. Gallbladder ejection fraction was calculated. COMPARISON: None. FINDINGS: Biliary scan: There is normal tracer uptake and excretion by the liver. There is normal visualizati on of the intrahepatic ducts, common bile duct, and gallbladder. There is normal tracer transit into the duodenum. A moderate amount of radiotracer persists within the gallbladder on the delayed image s. CCK stimulation: There is only partial contractile response of the gallbladder to CCK infusion. The calculated gallbladder ejection fraction is 20.5%; normal values are above 35%. It has been shown that any patient abdominal pain after CCK administration is related to the rate of CCK injection, rather than to any underlying gallbladder disease (Clinical Nuclear Medicine 2012; 37: 63-70. Journal of Nuclear Medicine 2014; 55: 1-9). IMPRESSION: 1. Gallbladder ejection fraction 20.5% which is less than the normal value of 35%. These findings sug gest gallbladder dyskinesis. Dictated by: Sapphire Hernández M.D. on 12/20/2016 at 17:04 Approved by: Sapphire Hernández M.D. on 12/20/2016 at 17:11
--- NOTE | 2016-12-20 17:30 | NUR ---
P: Hemodynamics, Resp, Nutrition, Social I,E: Pt remains off vasopressors, and BP is stable. UOP is brisk. HR is in the 90's to 100's SR. She is on room air with sats mid to high 90's. Pt was started on full liquid diet this afternoon, but she has no appetite and has only taken a few sips of water. Insulin gtt continues for NDKA. Pt's daughter has called to check on pt several times. She has had 3 episodes of diarrhoea today and a stool spec was sent for c-diff. She continues to have an area under her left buttock that is reddened and looks yeasty. Nystatin powder was ordered today and applied to the area.
--- NOTE | 2016-12-20 18:51 | NUR ---
Social note lizy sumner's son, Magen Pt has requested over the weekend and again today that her Son Magen not be given any information nor should he come up to the hospital to visit. Information may be given to her and to her daughter, Nory. From report, Magen has history of developmental delay and anger issues and security has been involved with escorting him from the hospital. Nory shares that her Mother and Father do not want Magen around at this time, while Donna is ill. Magen called once on Mon and Mon and was repetative in his requests and questions, but he only called the one time. Today he has called the hospital multiple times and his anger has been escalating. He has spoken to me, the mixing supervisor and the vertical mill operator. I have advised him that I cannot give him information, and he should call his sister.
--- NOTE | 2016-12-20 19:24 | NUR ---
Extra K rider order DC'd by Dr. Berry Pt was already receiving a K rider today when another order was entered. K level was checked this afternoon and was 4.0. notified and this 2nd order was DC'd. Will re check lab in am.
[2016-12-20 20:24] VITALS: BP 139/63; PULSE 96; RESP 26; O2SAT 98
[2016-12-21] VITALS (9 sets, daily range): BP systolic 112–127; BP diastolic 52–70; PULSE 90–107; RESP 20–26; O2SAT 94–99
--- NOTE | 2016-12-21 02:13 | ABG ---
DateTimeAnalyzed 08:16:31 -_ pH ____7.364 - 7.350 7.450 pCO2 ___25.9__ -mmHg 35.0 45.0 pO2 ___77.7__ -mmHg 70.0 100 HCO3- ___14.8__ -mmol/L 22.0 26.0 ABE ___-9.7__ -mmol/L -2.0 2.0 tHb ___10.1__ -g/dL 12.0 18.0 O2Hb ___95.1__ -% 95.0 COHb ____1.0__ -% 1.5 MetHb ____0.5__ -% 0.4 1.5 sO2 ___96.5__ -% FIO2 ___21.0__ -% Drawn By MT - Date/Time Notified____ 08:23:00 -_ Notified By Mt - Notified Whom ___McCart - B 755 -mmHg K+ ____3.2__ -mmol/L tO2 ___13.6__ -Vol% Edgardo test _Positive -
[2016-12-21 03:29] LABS: BASOPHILS % (AUTO) 0.2 % (0-3); EOSINOPHILS % (AUTO) 0.8 % (0-5); MONOCYTES % (AUTO) 9.8 % (4-12); Mean Corpuscular Hemoglobin 33.6 pg (27.0-35.0); Mean Corpuscular Volume 95.4 fL (81-100); Platelet Count 81 bil/L (150-400)
[2016-12-21 04:12] LABS: Magnesium 1.5 mg/dL (1.6-2.6); Phosphorus 3.3 mg/dL (2.5-4.9)
[2016-12-21] MEDS ORDERED: KCl 40 mEq/100 mL Premix (K 3 - 3.7 & Creat < 2) IV ONE (04:25)
[2016-12-21] MEDS ORDERED: Mag Sulf 4 Gm/100 mL IV Premix (Mag < 1.6 & Creat < 2) IV ONE (04:25)
[2016-12-21] MEDS: Sodium Bicarb 8.4% Inj 150 MEQ in Dextrose 5% 1,000 ML IV SCH (04:35)
[2016-12-21] MEDS ORDERED: Norepinephrine 8,000 mCg/250 mL D5W Premix IV SCH (05:09)
[2016-12-21] MEDS ORDERED: Insulin Human REGular Inj 100 UNIT in 0.9% Sodium Chloride-Pha MIX 100 ML IV SCH (05:09)
--- NOTE | 2016-12-21 05:10 | ABG ---
DateTimeAnalyzed 05:05:00 -_ pH ____7.372 - pCO2 ___37.7__ -mmHg pO2 ___40.8__ -mmHg HCO3- ___21.4__ -mmol/L ABE ___-2.9__ -mmol/L tHb ____9.2__ -g/dL O2Hb ___73.1__ -% COHb ____1.2__ -% MetHb ____1.0__ -% sO2 ___74.7__ -% FIO2 ___21.0__ -% Drawn By RN - Date/Time Notified____ 05:10:00 -_ Notified Whom RN - B 763 -mmHg tO2 ____9.5__ -Vol% Edgardo test N/A -
[2016-12-21] MEDS ORDERED: Dextrose 5% 1,000 ML IV SCH (05:13)
[2016-12-21] MEDS: Meropenem Inj 500 MG in 0.9% Sodium Chloride 50 ML IV SCH ×2 (05:16→20:56)
--- NOTE | 2016-12-21 06:08 | NUR ---
K/MG Franco/Critical Calcium Value/BMs Pt's K/MG replaced this morning per K/Mg replacement protocol. Calcium resulted as critical at 6.9; while this is a critical value it is improving over previous values. Ionized Calcium and estimated Ionized calcium have resulted and are available at this time. Pt had 4 very loose, green colored, mucous/thready bowel movements. Pt slept well throughout the night, follows commands and is able to appropriately use her call light to express her needs.
--- NOTE | 2016-12-21 07:48 | PCM.PNMED ---
Subjective Date of Service Dec 21, 2016 Subjective Nursing reports that patient is improving. She did have several bowel movement overnight described as soft by nursing (cdiff pending). She has been off pressors for over a day now. She is awake and more alert. She continues to deny any abdominal pain, nausea, vomiting. Exam Vital Signs Vital Sign - Last Date Time Temp Pulse Resp B/P Pulse Ox O2 Delivery O2 Flow Rate FiO2 12/21/16 03:22 100 26 127/69 94 Room Air 12/21/16 00:38 36.7 12/19/16 20:46 21 12/17/16 08:00 1.00 Intake and Output 12/20/16 12/20/16 12/21/16 Cumulative From/Thru 15:00 23:00 07:00 12/17/16 00:25 - 12/21/16 05:54 Intake Total 1899 ml 1432 ml 77345 ml Output Total 2000 ml 2450 ml 8650 ml Balance -101 ml -1018 ml 05585 ml Intake Oral 0 ml 0 ml IV Total 1899 ml 1432 ml 89493 ml Output Urine Total 2000 ml 2450 ml 8650 ml # Bowel Movements 4 4 10 Exam General: No acute distress HEENT: Normocephalic, atraumatic. Neck: Supple with full range of motion. No jugular venous distension. No bruits. No lymphadenopathy or thyromegaly. Cardiovascular: Regular rate and rhythm with no murmurs, rubs, or gallops appreciated Pulmonary: Clear to auscultation bilaterally with no crackles, wheezes, or rhonchi. Normal respiratory effort with no use of accessory muscles. Abdomen: Bowel tones present. Soft, nontender, nondistended. No hepatosplenomegaly or masses appreciated. Extremities: No clubbing, cyanosis, edema, or lymphadenopathy appreciated. Lab and Diagnostics Result Diagram: 12/21/16 0320 12/21/16 0320 X-Rays, CTs and MRIs CT Abd / Pelvis Interpretation Conclusion: Bubbles of air in the anterior abdominal wall and adjacent extra peritoneal tissues. This could be related to recent subcutaneous injections or other instrumentation. Please correlate clinically. No abscess in the soft tissues. Bowel pattern possibly consistent with constipation. Focally dilated distal pancreatic duct versus cystic lesion in the tail of the pancreas. Other findings as noted above. Study type: Abdominal CT no contrast Read by [facility] radiologist CT ABDOMEN AND PELVIS WITHOUT CONTRAST ABDOMEN: The pancreas is quite abnormal, with the glandular parenchyma virtually completely fatty atrophied. The pancreatic duct from the pancreatic neck towards the pancreatic tail is abnormally dilated measuring up to 1.1 cm in maximal dimension associated with a large dense calculus within the pancreatic duct at the pancreatic neck level measuring up to 1.2 cm AP and 2.1 cm transverse. This has a radiodensity of 1666 Hounsfield units. At the pancreatic tail there is a 1.3 and 2.0 cm set of cystic structures in the expected course of the pancreatic duct. Peritoneum and bowel: Unenhanced bowel loops demonstrate normal wall thickness and caliber. No free fluid. There may be a slight amount of free air at the anterior border of the midline of the abdomen/pelvis junction, above the umbilicus, where within the rectus sheath in the immediate adjacent subcutaneous fat several gas bubbles can be seen and at one point a communication between what appears to be in the anterior peritoneal gas bubble and the subcutaneous fat may be present (centered on series 2, image 53). IMPRESSION: 1. The study is significantly limited in anatomic detail by the absence of oral and intravenous contrast. With this qualification no definite underlying malignancy is seen. No definite focus of infection is found. 2. There is an unusual finding of several gas bubbles within the subcutaneous fat and the rectus sheath of the low abdomen/pelvis junction area, with possible small bubble of gas within the peritoneal space immediately adjacent. Please correlate for whether some form of lacerating injury has occurred in this area, versus surgical intervention or even medication injection into that area. 3. Throughout the abdomen and pelvis there is no sign of abscess formation. Colonic obstipation is present bilaterally. 4. There is an unusual appearance of the pancreas where the glandular parenchyma is virtually entirely omentum or sized into fat. The pancreatic duct is prominently distended at 1 cm through the pancreatic body and tail, secondary to a large ovoid calculus measuring up to 1.2 x 2.1 cm. Through the pancreatic tail 2 separate cystic structures can be seen, relatively small in size and likely sidebranch dilatations of the pancreatic ducts. This area could be easily followed by noncontrast CT scanning to assess for pattern changer and repairer time. Gastroenterology consultation may be warranted given the large pancreatic ductal calculus identified. Dictated by: Claude Mulligan M.D. on 12/17/2016 at 10:12 Ultrasound of abdomen on 12/19/2016: IMPRESSION: Findings likely reflect calculus in the region of the pancreatic head with associated pancreatic duct dilatation. This would correlate with the findings on a recent MRI dated yesterday, please see report. Normal appearance of the gallbladder. No free fluid. Dictated by: Stanford Desouza M.D. on 12/19/2016 at 19:50 Additional Diagnostics [facility] DateTimeAnalyzed 10:17:00 -_ pH ____7.197 - 7.350 7.450 pCO2 ___21.3__ -mmHg 35.0 45.0 pO2 102 -mmHg 69.0 116 HCO3- ____8.0__ -mmol/L 22.0 26.0 Assessment & Plan This is a 76-year-old female with history significant for diabetes mellitus and chronic kidney disease who presented to our hospital in DKA. The patient denies any abdominal valerio or tenderness. It is doubtful that this is pancreatitis based on clinical exam and ct findings. [facility] and Bianca MIRANDA does not believe that mechanical lithotripsy of the pancreas is urgently needed and that she could have his outpatient. Plan: -Continue to follow lipase, LFTs. -Continue fluid resuscitation -Treatment of diabetic ketoacidosis defer to the hospitalist service -Defer renal issues to nephrology -Awaiting fecal the elastase, fecal tryspsinogen, fecal trypsin. - May hold off on small bowel follow-through as long as the patient continues to improve. -Cdiff pending. -Continue to trend H&H as hemoglobin has trended down over hospital stay. -IV Protonix 40mg daily added. -Recommend advancing diet. -HIDA scan showed gallbladder ejection fraction 20.5% with findings suggestive of gallbladder dyskinesis. Patient will need outpatient followup with general surgery. I have seen and examined this patient. Agree with above. VTE Prophylaxis: Sub-Q Heparin (Unfractionated) VTE Mechanical Devices: Intermittant Pneumatic CD Resuscitation Status: CPR: Attempt Resuscitation Tono Bateman DO Dec 21, 2016 07:48 Jani Sadler MD Dec 22, 2016 15:59
[2016-12-21] MEDS ORDERED: Albumin 25% 25 GM in IV Premix 1 EACH IV SCH (08:30)
[2016-12-21] MEDS: Levothyroxine 100 mCg/5 mL Inj IV SCH (08:41)
[2016-12-21] MEDS: Nystatin 100,000 Unit/Gm 15 Gm Powder TOPICAL SCH ×2 (08:44→20:56)
--- NOTE | 2016-12-21 09:50 | NUR ---
Evaluation completed. Please go to "Notes" then click on "Assessments and Notes" (bottom left corner of screen). Then select appropriate discipline tab on top of screen.
[2016-12-21 10:04] LABS: Magnesium 2.3 mg/dL (1.6-2.6)
--- NOTE | 2016-12-21 10:05 | PCM.PNMED ---
Subjective Date of Service Dec 21, 2016 Subjective Overnight: Pt continued on non-DKA protocol with low insulin requirements at 0.8 per hour for last 24 hours. Tolerating full liquid diet.Norepinephrine off and pressures are stable. Green diarrhea overnight with Cdiff sent. Today: She reports being very tired but she is much more talkative this morning. Continues to deny abdominal pain, N/V/D, shortness of breath, fevers, chills. Exam Vital Signs Vital Sign - Last Date Time Temp Pulse Resp B/P Pulse Ox O2 Delivery O2 Flow Rate FiO2 12/21/16 07:47 36.5 96 20 112/52 96 Room Air 12/19/16 20:46 21 12/17/16 08:00 1.00 Intake and Output 12/20/16 12/20/16 12/21/16 Cumulative From/Thru 15:00 23:00 07:00 12/17/16 00:25 - 12/21/16 05:54 Intake Total 1899 ml 1432 ml 21406 ml Output Total 2000 ml 2450 ml 8650 ml Balance -101 ml -1018 ml 61381 ml Intake Oral 0 ml 0 ml IV Total 1899 ml 1432 ml 55612 ml Output Urine Total 2000 ml 2450 ml 8650 ml # Bowel Movements 4 4 10 Exam General: Alert, Oriented X3, Cooperative, No acute Distress but appears lethargic and more somnolent since last interview yesterday. Eyes: PERRLA, Scleral Anicteric Mouth: Mouth Normal, Mucous Membranes dry Neck: Supple, no Thyromegaly, trachea central. Chest & Lungs: Clear to auscultation & percussion, No adventitious breath sounds, no crackles, no wheeze Cardiovascular: Normal S1, Normal S2, Systolic murmur present, Regular Rate/ Rhythm, (No JVD, no peripheral edema) Pulses: Radial (present and equal), Dorsalis Pedi (present and equal) Abdomen: Soft, Non-tender, Non-distended, Normoactive bowel tones. Musculoskeletal: Unremarkable. Normal range of motion, no swollen or erythematous joints Extremities: No edema, no cyanosis, no clubbing. Skin: No rashes. Warm and dry, no erythematous areas Neurological: Grossly neurologically intact, has generalized weakness, Normal Speech, Sensation Intact Lymphatic: Lymph nodes Cervical and Axillary not palpable. IVs and Medications Medications Reviewed: Medications were reviewed in detail Lab and Diagnostics Result Diagram: 12/21/16 0320 12/21/16 0320 X-Rays, CTs and MRIs MRI ABDOMEN WITHOUT CONTRAST IMPRESSION: 1. Severely limited MRI of the abdomen related to extensive motion artifact. 2. No cholelithiasis. The common bile duct is not dilated. No choledocholithiasis is suspected. 3. Diffuse abnormal appearance of the pancreas is suggestive of chronic pancreatitis with fatty atrophy. Superimposed acute pancreatitis cannot be excluded. 4. Severe dilatation of the body and tail main pancreatic duct probably is related to a large calculus near the head of the pancreas that is either within the pancreatic duct and/or the adjacent soft tissues, subsequently obstructing the upstream portions of the pancreatic duct. This is almost certainly chronic in nature. The calculus was much better appreciated on the prior CT from . Multiple dilated sidebranches of the main pancreatic duct are also present with multiple cystic foci. While the ductal dilatation is mostly likely explained by a large distal intraluminal calculus, the possibility of an intra- papillary mucinous neoplasm cannot be excluded on the basis of this examination and followup abdominal imaging with contrast is recommended in [address] or MRI. 5. Fluid filled prominent small bowel loops are suggestive of ileus. 6. Mesenteric edema and ascites. 7. Small bilateral pleural effusions and associated atelectasis are new since . Dictated by: Kit Joshi M.D. on 12/18/2016 at 13:07 CT Abd / Pelvis Interpretation Conclusion: Bubbles of air in the anterior abdominal wall and adjacent extra peritoneal tissues. This could be related to recent subcutaneous injections or other instrumentation. Please correlate clinically. No abscess in the soft tissues. Bowel pattern possibly consistent with constipation. Focally dilated distal pancreatic duct versus cystic lesion in the tail of the pancreas. Other findings as noted above. Study type: Abdominal CT no contrast Read by [facility] radiologist CT ABDOMEN AND PELVIS WITHOUT CONTRAST ABDOMEN: The pancreas is quite abnormal, with the glandular parenchyma virtually completely fatty atrophied. The pancreatic duct from the pancreatic neck towards the pancreatic tail is abnormally dilated measuring up to 1.1 cm in maximal dimension associated with a large dense calculus within the pancreatic duct at the pancreatic neck level measuring up to 1.2 cm AP and 2.1 cm transverse. This has a radiodensity of 1666 Hounsfield units. At the pancreatic tail there is a 1.3 and 2.0 cm set of cystic structures in the expected course of the pancreatic duct. Peritoneum and bowel: Unenhanced bowel loops demonstrate normal wall thickness and caliber. No free fluid. There may be a slight amount of free air at the anterior border of the midline of the abdomen/pelvis junction, above the umbilicus, where within the rectus sheath in the immediate adjacent subcutaneous fat several gas bubbles can be seen and at one point a communication between what appears to be in the anterior peritoneal gas bubble and the subcutaneous fat may be present (centered on series 2, image 53). IMPRESSION: 1. The study is significantly limited in anatomic detail by the absence of oral and intravenous contrast. With this qualification no definite underlying malignancy is seen. No definite focus of infection is found. 2. There is an unusual finding of several gas bubbles within the subcutaneous fat and the rectus sheath of the low abdomen/pelvis junction area, with possible small bubble of gas within the peritoneal space immediately adjacent. Please correlate for whether some form of lacerating injury has occurred in this area, versus surgical intervention or even medication injection into that area. 3. Throughout the abdomen and pelvis there is no sign of abscess formation. Colonic obstipation is present bilaterally. 4. There is an unusual appearance of the pancreas where the glandular parenchyma is virtually entirely omentum or sized into fat. The pancreatic duct is prominently distended at 1 cm through the pancreatic body and tail, secondary to a large ovoid calculus measuring up to 1.2 x 2.1 cm. Through the pancreatic tail 2 separate cystic structures can be seen, relatively small in size and likely sidebranch dilatations of the pancreatic ducts. This area could be easily followed by noncontrast CT scanning to assess for furniture mover helper time. Gastroenterology consultation may be warranted given the large pancreatic ductal calculus identified. Dictated by: Claude Mulligan M.D. on 12/17/2016 at 10:12 Ultrasound of abdomen on 12/19/2016: IMPRESSION: Findings likely reflect calculus in the region of the pancreatic head with associated pancreatic duct dilatation. This would correlate with the findings on a recent MRI dated yesterday, please see report. Normal appearance of the gallbladder. No free fluid. Dictated by: Stanford Desouza M.D. on 12/19/2016 at 19:50 Additional Diagnostics [facility] DateTimeAnalyzed 05:05:00 -_ pH ____7.372 - pCO2 ___37.7__ -mmHg pO2 ___40.8__ -mmHg HCO3- ___21.4__ -mmol/L NM HIDA SCAN WITH CCK IMPRESSION: 1. Gallbladder ejection fraction 20.5% which is less than the normal value of 35 %. These findings suggest gallbladder dyskinesis. Dictated by: Sapphire Hernández M.D. on 12/20/2016 at 17:04 US ABDOMEN, LIMITED IMPRESSION: Findings likely reflect calculus in the region of the pancreatic head with associated pancreatic duct dilatation. This would correlate with the findings on a recent MRI dated yesterday, please see report. Normal appearance of the gallbladder. No free fluid. Dictated by: Stanford Desouza M.D. on 12/19/2016 at 19:50 [facility] DateTimeAnalyzed 10:17:00 -_ pH ____7.197 - 7.350 7.450 pCO2 ___21.3__ -mmHg 35.0 45.0 pO2 102 -mmHg 69.0 116 HCO3- ____8.0__ -mmol/L 22.0 26.0 US RENAL SONOGRAM IMPRESSION: No evidence for hydronephrosis. Small amount of free fluid in the right upper quadrant of the abdomen. Dictated by: Pete Simms M.D. on 12/18/2016 at 15:29 Assessment & Plan Donna Zuluaga is a 76 year old female with Diabetes, Hypertension, Dyslipidemia and Hypothyroidism who presents to [facility] emergency department with complaints of diffuse abdominal pain and 4 weeks of elevated blood sugars (400-600) at home with no obvious inciting event. #. Diabetic Ketoacidosis. Present on admission. Resolved. - Possibly 2nd to pancreatic burn out or pancreatitis. AG 17 today. Will increase fluids. - C-peptide 0.9. is low (N 1.1-4.4) - ABG as above. - Holding Metformin and Actos - Non-DKA protocol for now. Will reassess this afternoon with advancement of diet. -bicarb 20 today,discontinued bicarb drip #. Acute on chronic pancreatitis with obstructing pancreatic stone, present on admission. Active. - Abdominal pain on admission, elevated lipase, CT abdomen as above. MRCP was limited due to motion but showed likely chronic pancreatitis with fatty atrophy with a large calculus at the head of the pancreas with multiple dilated side- branches of the main pancreatic duct. Discussed with Dr. Sadler; this is likely not an acute pancreatitis as there is minimal pain and there is very little viable pancreas left at this point. 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 - IV Dilaudid PRN - Ordered stool trypsin & trypsinogen and stool pancreatic elastase - Dr. Sadler of GI is consulted. We appreciate his input. - RUQ US as above. - HIDA scan gall bladder dyskinesis. - 20% (Normal 35%) - Full liquid diet, will advance as tolerated. - Downgrade to PCC today. - Physical therapy today. - Green diarrhea overnight, Cdiff negative #. Acute Kidney injury on Chronic Kidney disease. Present on admission. Improving. - Baseline Creatinine 1.04-1.11. Chronic issue related to Diabetic nephropathy - ATN 12/20 with FENa 7.45% - Cre 1.99 on admission. BUN 45. currently 2.09 - Acute issue related to pre renal azotemia due to hypovolemia - discontinue Sodium bicarb @ 125 ml/hr D5W. - Avoid Nephrotoxic insults including contrast studies - Nephrology consulting. We appreciate their expertise. - K+ repletion 40 IV #. Septic Shock, present on admission, Resolved. - No clear source of infection identified at this time, however it is possibly pneumonia or atypical. May consider Meningitic sourcel. - Procalcitonin 1.05 12/19. trended down to 0.77 (12/20) - Albumin 25% x 2 (12/19) - Fungitel, sputum and blood fungal cx pending. - Off NE. - On Meropenem. plan to discontinue in 2-3 days if continues to improve #. Hyperchloremic Metabolic Acidosis, not present on admission, Active. - Fluids off, full liquid diet. #. Thrombocytopenia, not present on admission. Stable and active. - likely consumptive. No sign of disseminated intravascular coagulopathy. - HIT panel negative - Continue Anticoagulation until plt <50. Heparin SQ. - Meropenem. - Peripheral smear pending. #. Lactic acidosis with metabolic acidosis. Present on admission. Resolved. #. Chronic Hypertension, Low range of normal likely due to hypovolemia - holding all antihypertensive at this time #. Hyperlipidemia - continue Simvastatin 10 mg HS #. Hypothyroidism - continue Synthroid 137 mcg daily (70 IV daily), - today will give 137 IV. - TSH and T4 6.670 and 0.71. #. Hypocalcemia, not present on admission. Active. -due to suspected ongoing pancreatitis - Ca 6.8 today corrected 8.7. Acetaminophen for mild pain when necessary. Bowel regimen Senna and MiraLAX scheduled and PRN. Zofran when necessary for nausea and vomiting. SubQ heparin held for now. SCDs in place. High-risk medications: IV Dilaudid Disposition: pending hospital course Pain Evaluation: Adequate Pain Control VTE Prophylaxis: Sub-Q Heparin (Unfractionated) VTE Mechanical Devices: Intermittant Pneumatic CD Resuscitation Status: CPR: Attempt Resuscitation Attending Statement The patient was seen and examined together with Dr. Daigle on 12/21/2016 and I agree with the history, exam and plan as outlined in the note above. . NATHALIA DAIGLE DO Dec 21, 2016 10:05 Jamar Scruggs MD Dec 21, 2016 13:50
--- NOTE | 2016-12-21 11:24 | NUR ---
NUTRITION FOLLOW UP ASSESS: 76 YO F admitted to CCU with acute abdominal pain and DKA. She was found to have acute gallstone pancreatitis with a chronic obstructing stone in the pancreatic duct. GI does not believe acute intervention is required at this time; recommending outpatient f/u. Diet advanced to full liquid. Per nurse, pt has limited appetite and is taking sips of water. Nurse able to get pt to eat pudding and Cream of Wheat this AM. Plans to encourage PO intake. Per notes, pt experienced diarrhea last night; C diff results pending. Pt continues to be very tired. PMHx: Vitamin D deficiency, hypothyroidism, dyslipidemia, type 2 diabetes, CKD, HTN, osteopenia. DIET: Full liquid sips of water, some PO intake this AM LABS: Reviewed. Na 145, K 3.1, Cl 111, BUN 33, Shirring Tender 1.84, Gluc 142, Ca 6.9, Mg 1.5, Alb 3.2, Procalcitonin 0.48, TSH 6.67, Free T4 0.71 MEDICATIONS: Reviewed. Insulin, Synthroid. GI: BM x 4 overnight diarrhea noted. SKIN: John 14 - redness noted on left buttock, mottling color on bilateral knees ANTHROPOMETRICS: Current Wt: 71.6 kg, BMI: 30.8 kg/m2. IBW: 45.5 kg (131.1% IBW), Admit wt: 59.5 kg. ESTIMATED NEEDS: BMI Calories: 3520-7937 kcal/day (22-25 kcal/kg BW) Protein: 55-70g/day (1.2-1.5 g/kg BW) NUTRITION DIAGNOSIS: 1) Altered nutrition-related labs related to hyperglycemia, DKA, as evidenced by glucose 358, A1c 15.5.---PERSISTS. 2) Inadequate oral intake related to decreased ability to consume sufficient energy as evidenced by current NPO status.---IMPROVING W/ DIET ADVANCEMENT AND SOME PO INTAKE. INTERVENTION: 1) Will add Glucerna to L&D trays to help ensure adequate calorie and protein intake. 2) Once patient is more awake, will offer inpatient diabetes education. MONITOR/EVALUATE: PO intake, wt, DM ed, labs, GI, nutrition status. Follow per high nutrition risk guidelines. Addendum: 12/21/16 at [address] Student documentation reviewed and I agree with the above assessment. Jay Nash, MS, RDN, CD
--- NOTE | 2016-12-21 11:25 | PROG NOTE ---
[address] [address] PROGRESS NOTE PATIENT: ADE GARRETT : 1940 MR#: [id number] ADMIT: 12/17/2016 JOB ID: [id number] DATE: 12/21/2016 PULMONARY PROGRESS NOTE: The patient is a 76-year-old woman admitted with shock and hypotension, diabetic ketoacidosis of unclear etiology, with chronic pancreatitis with large pancreatic duct stone. INTERVAL HISTORY: She has been weaned off of pressors for greater than 24 hours. Still lethargic, tired, in fact sleeping so soundly today she would not really wake up for me except to moan and just mumble words. REVIEW OF SYSTEMS: Could not be obtained since the patient was fast asleep. PHYSICAL EXAMINATION: Vital signs reviewed. Temperature 36.5, pulse 96, respirations 20, BP 112/52, sats 96% on room air. Abdomen is completely soft and nontender. Chest is clear. Heart: She has a soft systolic murmur as before. LABORATORIES: Reviewed. Acidosis resolved, bicarb up to 20. Potassium is low 3.1. Creatinine continues to slowly improve, down to 1.84. HIDA scan done yesterday shows gallbladder ejection fraction reduced suggesting dyskinesis but no signs of acalculous cholecystitis. Venous blood gas shows pH 7.37, pCO2 of 37, pO2 of 40, bicarb of 21. ASSESSMENT: 1. Shock-resolved. 2. Diabetic ketoacidosis-improved. 3. Suspected pancreatitis-chronic, secondary to large pancreatic duct stone. 4. Acute kidney injury-improving. 5. Thrombocytopenia-stable. RECOMMENDATIONS: A 76-year-old woman with chronic pancreatitis, large pancreatic duct stone presenting with severe DKA and acidosis, shock, requiring vasopressors. She has improved significantly from a hemodynamic standpoint. She is on room air. She is making good urine and her creatinine continues to slowly improve. We do not have a sepsis source but I wonder if this was all acidosis from severe DKA. I think it would be reasonable to stop her meropenem after a few more days. She was switched to meropenem from Zosyn yesterday because of thrombocytopenia. With regards to the thrombocytopenia, it is stable today and her heparin was stopped yesterday. It is pending still. I have nothing else to add from a pulmonary critical care standpoint, so I will sign off. Please contact me for any further issues.
--- NOTE | 2016-12-21 12:46 | PCM.PNMED ---
Subjective Date of Service Dec 21, 2016 Subjective The patient's renal function and urine output are stable. We will sing off at this point, please notify of any change or questions. Thank you. Exam Vital Signs Vital Sign - Last Date Time Temp Pulse Resp B/P Pulse Ox O2 Delivery O2 Flow Rate FiO2 12/21/16 09:58 93 12/21/16 07:47 36.5 20 112/52 96 Room Air 12/19/16 20:46 21 12/17/16 08:00 1.00 Intake and Output 12/20/16 12/20/16 12/21/16 Cumulative From/Thru 15:00 23:00 07:00 12/17/16 00:25 - 12/21/16 05:54 Intake Total 1899 ml 1432 ml 58437 ml Output Total 2000 ml 2450 ml 8650 ml Balance -101 ml -1018 ml 66228 ml Intake Oral 0 ml 0 ml IV Total 1899 ml 1432 ml 09756 ml Output Urine Total 2000 ml 2450 ml 8650 ml # Bowel Movements 4 4 10 Lab and Diagnostics Result Diagram: 12/21/16 0320 12/21/16 0915 X-Rays, CTs and MRIs MRI ABDOMEN WITHOUT CONTRAST IMPRESSION: 1. Severely limited MRI of the abdomen related to extensive motion artifact. 2. No cholelithiasis. The common bile duct is not dilated. No choledocholithiasis is suspected. 3. Diffuse abnormal appearance of the pancreas is suggestive of chronic pancreatitis with fatty atrophy. Superimposed acute pancreatitis cannot be excluded. 4. Severe dilatation of the body and tail main pancreatic duct probably is related to a large calculus near the head of the pancreas that is either within the pancreatic duct and/or the adjacent soft tissues, subsequently obstructing the upstream portions of the pancreatic duct. This is almost certainly chronic in nature. The calculus was much better appreciated on the prior CT from . Multiple dilated sidebranches of the main pancreatic duct are also present with multiple cystic foci. While the ductal dilatation is mostly likely explained by a large distal intraluminal calculus, the possibility of an intra- papillary mucinous neoplasm cannot be excluded on the basis of this examination and followup abdominal imaging with contrast is recommended in [address] or MRI. 5. Fluid filled prominent small bowel loops are suggestive of ileus. 6. Mesenteric edema and ascites. 7. Small bilateral pleural effusions and associated atelectasis are new since . Dictated by: Kit Joshi M.D. on 12/18/2016 at 13:07 CT Abd / Pelvis Interpretation Conclusion: Bubbles of air in the anterior abdominal wall and adjacent extra peritoneal tissues. This could be related to recent subcutaneous injections or other instrumentation. Please correlate clinically. No abscess in the soft tissues. Bowel pattern possibly consistent with constipation. Focally dilated distal pancreatic duct versus cystic lesion in the tail of the pancreas. Other findings as noted above. Study type: Abdominal CT no contrast Read by [facility] radiologist CT ABDOMEN AND PELVIS WITHOUT CONTRAST ABDOMEN: The pancreas is quite abnormal, with the glandular parenchyma virtually completely fatty atrophied. The pancreatic duct from the pancreatic neck towards the pancreatic tail is abnormally dilated measuring up to 1.1 cm in maximal dimension associated with a large dense calculus within the pancreatic duct at the pancreatic neck level measuring up to 1.2 cm AP and 2.1 cm transverse. This has a radiodensity of 1666 Hounsfield units. At the pancreatic tail there is a 1.3 and 2.0 cm set of cystic structures in the expected course of the pancreatic duct. Peritoneum and bowel: Unenhanced bowel loops demonstrate normal wall thickness and caliber. No free fluid. There may be a slight amount of free air at the anterior border of the midline of the abdomen/pelvis junction, above the umbilicus, where within the rectus sheath in the immediate adjacent subcutaneous fat several gas bubbles can be seen and at one point a communication between what appears to be in the anterior peritoneal gas bubble and the subcutaneous fat may be present (centered on series 2, image 53). IMPRESSION: 1. The study is significantly limited in anatomic detail by the absence of oral and intravenous contrast. With this qualification no definite underlying malignancy is seen. No definite focus of infection is found. 2. There is an unusual finding of several gas bubbles within the subcutaneous fat and the rectus sheath of the low abdomen/pelvis junction area, with possible small bubble of gas within the peritoneal space immediately adjacent. Please correlate for whether some form of lacerating injury has occurred in this area, versus surgical intervention or even medication injection into that area. 3. Throughout the abdomen and pelvis there is no sign of abscess formation. Colonic obstipation is present bilaterally. 4. There is an unusual appearance of the pancreas where the glandular parenchyma is virtually entirely omentum or sized into fat. The pancreatic duct is prominently distended at 1 cm through the pancreatic body and tail, secondary to a large ovoid calculus measuring up to 1.2 x 2.1 cm. Through the pancreatic tail 2 separate cystic structures can be seen, relatively small in size and likely sidebranch dilatations of the pancreatic ducts. This area could be easily followed by noncontrast CT scanning to assess for exchange floor manager time. Gastroenterology consultation may be warranted given the large pancreatic ductal calculus identified. Dictated by: Claude Mulligan M.D. on 12/17/2016 at 10:12 Ultrasound of abdomen on 12/19/2016: IMPRESSION: Findings likely reflect calculus in the region of the pancreatic head with associated pancreatic duct dilatation. This would correlate with the findings on a recent MRI dated yesterday, please see report. Normal appearance of the gallbladder. No free fluid. Dictated by: Stanford Desouza M.D. on 12/19/2016 at 19:50 Additional Diagnostics ABG DateTimeAnalyzed 05:05:00 -_ pH ____7.372 - pCO2 ___37.7__ -mmHg pO2 ___40.8__ -mmHg HCO3- ___21.4__ -mmol/L NM HIDA SCAN WITH CCK IMPRESSION: 1. Gallbladder ejection fraction 20.5% which is less than the normal value of 35 %. These findings suggest gallbladder dyskinesis. Dictated by: Sapphire Hernández M.D. on 12/20/2016 at 17:04 US ABDOMEN, LIMITED IMPRESSION: Findings likely reflect calculus in the region of the pancreatic head with associated pancreatic duct dilatation. This would correlate with the findings on a recent MRI dated yesterday, please see report. Normal appearance of the gallbladder. No free fluid. Dictated by: Stanford Desouza M.D. on 12/19/2016 at 19:50 ABG DateTimeAnalyzed 10:17:00 -_ pH ____7.197 - 7.350 7.450 pCO2 ___21.3__ -mmHg 35.0 45.0 pO2 102 -mmHg 69.0 116 HCO3- ____8.0__ -mmol/L 22.0 26.0 US RENAL SONOGRAM IMPRESSION: No evidence for hydronephrosis. Small amount of free fluid in the right upper quadrant of the abdomen. Dictated by: Pete Simms M.D. on 12/18/2016 at 15:29 Assessment & Plan This is a 76-year-old female with history significant for diabetes mellitus and chronic kidney disease who presented to our hospital in DKA. The patient denies any abdominal valerio or tenderness. It is doubtful that this is pancreatitis based on clinical exam and ct findings. [facility] and Bianca Mcadams does not believe that mechanical lithotripsy of the pancreas is urgently needed and that she could have his outpatient. Plan: -Continue to follow lipase, LFTs. -Continue fluid resuscitation -Treatment of diabetic ketoacidosis defer to the hospitalist service -Defer renal issues to nephrology -Awaiting fecal the elastase, fecal tryspsinogen, fecal trypsin. - May hold off on small bowel follow-through as long as the patient continues to improve. -Cdiff pending. -Continue to trend H&H as hemoglobin has trended down over hospital stay. -IV Protonix 40mg daily added. -Recommend advancing diet. -HIDA scan showed gallbladder ejection fraction 20.5% with findings suggestive of gallbladder dyskinesis. Patient will need outpatient followup with general surgery. VTE Prophylaxis: Sub-Q Heparin (Unfractionated) VTE Mechanical Devices: Intermittant Pneumatic CD Resuscitation Status: CPR: Attempt Resuscitation Eros Bains DO Dec 21, 2016 12:46
[2016-12-21] MEDS ORDERED: Sodium Bicarb 8.4% Inj 150 MEQ in Dextrose 5% 1,000 ML IV SCH (13:18)
--- NOTE | 2016-12-21 15:41 | NUR ---
Social Work Note: Continued Discharge Planning Data& Assessment: Per pt is not medically ready at this time, however pt is now off pressors. SW met with pt at bedside to assess for any unmet needs. Pt was sleepy and reported that she did not feel well. Pt denied any unmet needs or concerns. RN notified SW that pt may require information or resources for her family at home and who has Parkinsons. Pt declined any resources and declined SW offer to contact anyone for her. Pt confirmed her daughter was helping out in the home at this time while she is recovering in the hospital, pt is hopeful to return home at discharge. PT is following at this time and plan to continue to meet with pt to increase strength and mobility. SW to continue to follow for medical progression. Plan: Anticipated discharge home with home health vs. SNF when medically ready. SW to continue to follow for medical progression and further PT evaluation. SW to continue to follow for medical progression. SAMANTHA Nielsen
--- NOTE | 2016-12-21 16:53 | NUR ---
Mentation/ Nutrition/Activity.. Somnolent this am but is becoming more animated and verbal this afternoon. Remains appropriate and oriented. Was able to dangle on edge of bed for meals. Appetite poor this am, but ate 50% for lunch. Has been changed to [facility] tele status. Daughter Nory updated over phone.
[2016-12-21] MEDS ORDERED: 0.9% Sodium Chloride 250 ML ONE (20:55)
--- NOTE | 2016-12-21 23:53 | NUR ---
Report Report given to Christ Scott RN, all questions answered, patient resting in bed, no distress noted.
[2016-12-22] VITALS (9 sets, daily range): BP systolic 109–134; BP diastolic 51–69; PULSE 96–100; RESP 20–26; O2SAT 99–100
[2016-12-22 08:27] LABS: BASOPHILS % (AUTO) 0.3 % (0-3); EOSINOPHILS % (AUTO) 0.5 % (0-5); MONOCYTES % (AUTO) 14.1 % (4-12); Mean Corpuscular Volume 98.6 fL (81-100); NEUTROPHILS % (AUTO) 63.7 % (40-74); Platelet Count 84 bil/L (150-400)
[2016-12-22] MEDS: Senna-Docusate 8.6-50 mg Tablet PO SCH ×2 (08:30→19:36)
[2016-12-22] MEDS: Pantoprazole 4 mg/mL 10 mL Inj IVPUSH SCH (09:15)
[2016-12-22] MEDS: Levothyroxine 100 mCg/5 mL Inj IV SCH (09:34)
[2016-12-22] MEDS: Nystatin 100,000 Unit/Gm 15 Gm Powder TOPICAL SCH ×2 (09:38→19:36)
[2016-12-22] MEDS: Meropenem Inj 500 MG in 0.9% Sodium Chloride 50 ML IV SCH ×2 (09:44→19:38)
--- NOTE | 2016-12-22 13:23 | NUR ---
Social Work: Continued Discharge Planning D: Pt discussed in am rounds. pt is not medically stable for discharge at this time. No anticipated discharge date was discussed. PT was able to complete evaluation with pt today; pt requires max assist from supine to sitting position and is not currently ambulating. Current recommendation is for SNF for increased strengthening and functional mobility improvement. [employer] spoke with pt's daughter, Nory Ruano, about discharge recommendation and reviewed PT Evaluation. Pt's daughter states that she intends to take the pt home when medically stable and will not consent for referrals made to any skilled rehab; she is a caregiver and understands that pt will likely require assistance getting OOB and with most of her ADLs. She is requesting home health for the pt. HH CHOICE LIST provided. She has no preference for HH Companies. Referral provided to Leon Constantino with [facility] per vendor calendar. Access provided. F2F in folder. A: Pt who was previously I with all ADLs and lives at home with her spouse and dtr. P: Evolving; Pt's family wishes to bring pt home with [facility] for RN, PT. [employer] to continue to follow pt's progress and continue to discuss discharge planning options if pt requires high d/c needs. SAMANTHA Marks
--- NOTE | 2016-12-22 15:59 | PCM.PNMED ---
Subjective Date of Service Dec 22, 2016 Subjective GI progress note: Nursing reports that patient is improving. She did have several bowel movement overnight described as soft by nursing. Cdiff negative. She has been off pressors for over a day now. She is awake and more alert. She continues to deny any abdominal pain, nausea, vomiting. Exam Vital Signs Vital Sign - Last Date Time Temp Pulse Resp B/P Pulse Ox O2 Delivery O2 Flow Rate FiO2 12/22/16 11:12 37.0 100 20 109/59 100 Room Air 12/19/16 20:46 21 12/17/16 08:00 1.00 Intake and Output 12/21/16 12/21/16 12/22/16 Cumulative From/Thru 14:59 22:59 06:59 12/17/16 00:25 - 12/22/16 05:40 Intake Total 1431 ml 465 ml 10502 ml Output Total 1200 ml 900 ml 85712 ml Balance 231 ml -435 ml 87943 ml Intake Oral 360 ml 465 ml 825 ml IV Total 1071 ml 16690 ml Output Urine Total 1200 ml 900 ml 34280 ml # Bowel Movements 0 10 Exam General: No acute distress HEENT: Normocephalic, atraumatic. Neck: Supple with full range of motion. No jugular venous distension. No bruits. No lymphadenopathy or thyromegaly. Cardiovascular: Regular rate and rhythm with no murmurs, rubs, or gallops appreciated Pulmonary: Clear to auscultation bilaterally with no crackles, wheezes, or rhonchi. Normal respiratory effort with no use of accessory muscles. Abdomen: Bowel tones present. Soft, nontender, nondistended. No hepatosplenomegaly or masses appreciated. Extremities: No clubbing, cyanosis, edema, or lymphadenopathy appreciated. Lab and Diagnostics Result Diagram: 12/22/16 0800 12/22/16 0800 X-Rays, CTs and MRIs MRI ABDOMEN WITHOUT CONTRAST IMPRESSION: 1. Severely limited MRI of the abdomen related to extensive motion artifact. 2. No cholelithiasis. The common bile duct is not dilated. No choledocholithiasis is suspected. 3. Diffuse abnormal appearance of the pancreas is suggestive of chronic pancreatitis with fatty atrophy. Superimposed acute pancreatitis cannot be excluded. 4. Severe dilatation of the body and tail main pancreatic duct probably is related to a large calculus near the head of the pancreas that is either within the pancreatic duct and/or the adjacent soft tissues, subsequently obstructing the upstream portions of the pancreatic duct. This is almost certainly chronic in nature. The calculus was much better appreciated on the prior CT from . Multiple dilated sidebranches of the main pancreatic duct are also present with multiple cystic foci. While the ductal dilatation is mostly likely explained by a large distal intraluminal calculus, the possibility of an intra- papillary mucinous neoplasm cannot be excluded on the basis of this examination and followup abdominal imaging with contrast is recommended in [address] or MRI. 5. Fluid filled prominent small bowel loops are suggestive of ileus. 6. Mesenteric edema and ascites. 7. Small bilateral pleural effusions and associated atelectasis are new since . Dictated by: Kit Joshi M.D. on 12/18/2016 at 13:07 CT Abd / Pelvis Interpretation Conclusion: Bubbles of air in the anterior abdominal wall and adjacent extra peritoneal tissues. This could be related to recent subcutaneous injections or other instrumentation. Please correlate clinically. No abscess in the soft tissues. Bowel pattern possibly consistent with constipation. Focally dilated distal pancreatic duct versus cystic lesion in the tail of the pancreas. Other findings as noted above. Study type: Abdominal CT no contrast Read by [facility] radiologist CT ABDOMEN AND PELVIS WITHOUT CONTRAST ABDOMEN: The pancreas is quite abnormal, with the glandular parenchyma virtually completely fatty atrophied. The pancreatic duct from the pancreatic neck towards the pancreatic tail is abnormally dilated measuring up to 1.1 cm in maximal dimension associated with a large dense calculus within the pancreatic duct at the pancreatic neck level measuring up to 1.2 cm AP and 2.1 cm transverse. This has a radiodensity of 1666 Hounsfield units. At the pancreatic tail there is a 1.3 and 2.0 cm set of cystic structures in the expected course of the pancreatic duct. Peritoneum and bowel: Unenhanced bowel loops demonstrate normal wall thickness and caliber. No free fluid. There may be a slight amount of free air at the anterior border of the midline of the abdomen/pelvis junction, above the umbilicus, where within the rectus sheath in the immediate adjacent subcutaneous fat several gas bubbles can be seen and at one point a communication between what appears to be in the anterior peritoneal gas bubble and the subcutaneous fat may be present (centered on series 2, image 53). IMPRESSION: 1. The study is significantly limited in anatomic detail by the absence of oral and intravenous contrast. With this qualification no definite underlying malignancy is seen. No definite focus of infection is found. 2. There is an unusual finding of several gas bubbles within the subcutaneous fat and the rectus sheath of the low abdomen/pelvis junction area, with possible small bubble of gas within the peritoneal space immediately adjacent. Please correlate for whether some form of lacerating injury has occurred in this area, versus surgical intervention or even medication injection into that area. 3. Throughout the abdomen and pelvis there is no sign of abscess formation. Colonic obstipation is present bilaterally. 4. There is an unusual appearance of the pancreas where the glandular parenchyma is virtually entirely omentum or sized into fat. The pancreatic duct is prominently distended at 1 cm through the pancreatic body and tail, secondary to a large ovoid calculus measuring up to 1.2 x 2.1 cm. Through the pancreatic tail 2 separate cystic structures can be seen, relatively small in size and likely sidebranch dilatations of the pancreatic ducts. This area could be easily followed by noncontrast CT scanning to assess for oil change technician time. Gastroenterology consultation may be warranted given the large pancreatic ductal calculus identified. Dictated by: Claude Mulligan M.D. on 12/17/2016 at 10:12 Ultrasound of abdomen on 12/19/2016: IMPRESSION: Findings likely reflect calculus in the region of the pancreatic head with associated pancreatic duct dilatation. This would correlate with the findings on a recent MRI dated yesterday, please see report. Normal appearance of the gallbladder. No free fluid. Dictated by: Stanford Desouza M.D. on 12/19/2016 at 19:50 Additional Diagnostics ABG DateTimeAnalyzed 05:05:00 -_ pH ____7.372 - pCO2 ___37.7__ -mmHg pO2 ___40.8__ -mmHg HCO3- ___21.4__ -mmol/L NM HIDA SCAN WITH CCK IMPRESSION: 1. Gallbladder ejection fraction 20.5% which is less than the normal value of 35 %. These findings suggest gallbladder dyskinesis. Dictated by: Sapphire Hernández M.D. on 12/20/2016 at 17:04 US ABDOMEN, LIMITED IMPRESSION: Findings likely reflect calculus in the region of the pancreatic head with associated pancreatic duct dilatation. This would correlate with the findings on a recent MRI dated yesterday, please see report. Normal appearance of the gallbladder. No free fluid. Dictated by: Stanford Desouza M.D. on 12/19/2016 at 19:50 AB DateTimeAnalyzed 10:17:00 -_ pH ____7.197 - 7.350 7.450 pCO2 ___21.3__ -mmHg 35.0 45.0 pO2 102 -mmHg 69.0 116 HCO3- ____8.0__ -mmol/L 22.0 26.0 US RENAL SONOGRAM IMPRESSION: No evidence for hydronephrosis. Small amount of free fluid in the right upper quadrant of the abdomen. Dictated by: Pete Simms M.D. on 12/18/2016 at 15:29 Assessment & Plan This is a 76-year-old female with history significant for diabetes mellitus and chronic kidney disease who presented to our hospital in DKA. The patient denies any abdominal valerio or tenderness. It is doubtful that this is pancreatitis based on clinical exam and ct findings. [facility] and Bianca MIRANDA does not believe that mechanical lithotripsy of the pancreas is urgently needed and that she could have his outpatient. Plan: -Continue to follow lipase, LFTs. -Continue fluid resuscitation -Treatment of diabetic ketoacidosis defer to the hospitalist service -Defer renal issues to nephrology -Awaiting fecal the elastase, fecal tryspsinogen, fecal trypsin. - May hold off on small bowel follow-through as long as the patient continues to improve. -Cdiff negative -Continue to trend H&H as hemoglobin has trended down over hospital stay. Currently stable. -IV Protonix 40mg daily added. -Recommend advancing diet. -HIDA scan showed gallbladder ejection fraction 20.5% with findings suggestive of gallbladder dyskinesis. Patient will need outpatient followup with general surgery. -Patient should also followup with Bianca Mcadams concerning mechanical lithotripsy of pancreatic stone. GI will sign off. If you have any further questions please contact us. I have seen and examined the patient. Agreeable with the above VTE Prophylaxis: Sub-Q Heparin (Unfractionated) VTE Mechanical Devices: Intermittant Pneumatic CD Resuscitation Status: CPR: Attempt Resuscitation Tono Bateman DO Dec 22, 2016 15:04 Jani Sadler MD Dec 28, 2016 09:05
[2016-12-22] MEDS ORDERED: Glucose 40% Oral Gel 15 Gm Tube PO PRN (17:40)
--- NOTE | 2016-12-22 17:56 | NUR ---
Lawson/BM/insulin Per MD orders, lawson was discontinued today at 1300 with no void to follow. Bladder scan showed 296cc. MD notified. Pt has refused to get up either with nursing staff or with PT, stating she feels extremely "tired and weak." Pt had 3 incontinent loose stools this shift. Barrier wipes used for red flaky skin on bottom. MD was notified about insulin pump getting turned off during maintenance mechanic 2nd shift. Orders today were to turn it back on. Rates have been titrated per insulin protocol. Pt reports no pain throughout shift.
--- NOTE | 2016-12-22 17:56 | PCM.PNMED ---
Subjective Date of Service Dec 22, 2016 Subjective Overnight: Per nursing reports; patient was hypoglycemic and the insulin ggt was d/c and D50 was not given. Patient's BS were 200 this am. Today: She reports being very tired but she is much more talkative this morning. Continues to deny abdominal pain, N/V/D, shortness of breath, fevers, chills. Exam Vital Signs Vital Sign - Last Date Time Temp Pulse Resp B/P Pulse Ox O2 Delivery O2 Flow Rate FiO2 12/22/16 16:25 36.8 97 22 115/58 100 Room Air 12/19/16 20:46 21 12/17/16 08:00 1.00 Intake and Output 12/21/16 12/21/16 12/22/16 Cumulative From/Thru 15:00 23:00 07:00 12/17/16 00:25 - 12/22/16 05:40 Intake Total 1431 ml 465 ml 42087 ml Output Total 1200 ml 900 ml 68660 ml Balance 231 ml -435 ml 66899 ml Intake Oral 360 ml 465 ml 825 ml IV Total 1071 ml 47692 ml Output Urine Total 1200 ml 900 ml 90030 ml # Bowel Movements 0 10 Exam General: Alert, Oriented X3, Cooperative, No acute Distress but appears lethargic and more somnolent since last interview yesterday. Eyes: PERRLA, Scleral Anicteric Mouth: Mouth Normal, Mucous Membranes dry Neck: Supple, no Thyromegaly, trachea central. Chest & Lungs: Clear to auscultation & percussion, No adventitious breath sounds, no crackles, no wheeze Cardiovascular: Normal S1, Normal S2, Systolic murmur present, Regular Rate/ Rhythm, (No JVD, no peripheral edema) Pulses: Radial (present and equal), Dorsalis Pedi (present and equal) Abdomen: Soft, Non-tender, Non-distended, Normoactive bowel tones. Musculoskeletal: Unremarkable. Normal range of motion, no swollen or erythematous joints Extremities: No edema, no cyanosis, no clubbing. Skin: No rashes. Warm and dry, no erythematous areas Neurological: Grossly neurologically intact, has generalized weakness, Normal Speech, Sensation Intact Lymphatic: Lymph nodes Cervical and Axillary not palpable. IVs and Medications Medications Reviewed: Medications were reviewed in detail Lab and Diagnostics Result Diagram: 12/22/16 0800 12/22/16 0800 X-Rays, CTs and MRIs MRI ABDOMEN WITHOUT CONTRAST IMPRESSION: 1. Severely limited MRI of the abdomen related to extensive motion artifact. 2. No cholelithiasis. The common bile duct is not dilated. No choledocholithiasis is suspected. 3. Diffuse abnormal appearance of the pancreas is suggestive of chronic pancreatitis with fatty atrophy. Superimposed acute pancreatitis cannot be excluded. 4. Severe dilatation of the body and tail main pancreatic duct probably is related to a large calculus near the head of the pancreas that is either within the pancreatic duct and/or the adjacent soft tissues, subsequently obstructing the upstream portions of the pancreatic duct. This is almost certainly chronic in nature. The calculus was much better appreciated on the prior CT from . Multiple dilated sidebranches of the main pancreatic duct are also present with multiple cystic foci. While the ductal dilatation is mostly likely explained by a large distal intraluminal calculus, the possibility of an intra- papillary mucinous neoplasm cannot be excluded on the basis of this examination and followup abdominal imaging with contrast is recommended in [address] or MRI. 5. Fluid filled prominent small bowel loops are suggestive of ileus. 6. Mesenteric edema and ascites. 7. Small bilateral pleural effusions and associated atelectasis are new since . Dictated by: Kit Joshi M.D. on 12/18/2016 at 13:07 CT Abd / Pelvis Interpretation Conclusion: Bubbles of air in the anterior abdominal wall and adjacent extra peritoneal tissues. This could be related to recent subcutaneous injections or other instrumentation. Please correlate clinically. No abscess in the soft tissues. Bowel pattern possibly consistent with constipation. Focally dilated distal pancreatic duct versus cystic lesion in the tail of the pancreas. Other findings as noted above. Study type: Abdominal CT no contrast Read by [facility] radiologist CT ABDOMEN AND PELVIS WITHOUT CONTRAST ABDOMEN: The pancreas is quite abnormal, with the glandular parenchyma virtually completely fatty atrophied. The pancreatic duct from the pancreatic neck towards the pancreatic tail is abnormally dilated measuring up to 1.1 cm in maximal dimension associated with a large dense calculus within the pancreatic duct at the pancreatic neck level measuring up to 1.2 cm AP and 2.1 cm transverse. This has a radiodensity of 1666 Hounsfield units. At the pancreatic tail there is a 1.3 and 2.0 cm set of cystic structures in the expected course of the pancreatic duct. Peritoneum and bowel: Unenhanced bowel loops demonstrate normal wall thickness and caliber. No free fluid. There may be a slight amount of free air at the anterior border of the midline of the abdomen/pelvis junction, above the umbilicus, where within the rectus sheath in the immediate adjacent subcutaneous fat several gas bubbles can be seen and at one point a communication between what appears to be in the anterior peritoneal gas bubble and the subcutaneous fat may be present (centered on series 2, image 53). IMPRESSION: 1. The study is significantly limited in anatomic detail by the absence of oral and intravenous contrast. With this qualification no definite underlying malignancy is seen. No definite focus of infection is found. 2. There is an unusual finding of several gas bubbles within the subcutaneous fat and the rectus sheath of the low abdomen/pelvis junction area, with possible small bubble of gas within the peritoneal space immediately adjacent. Please correlate for whether some form of lacerating injury has occurred in this area, versus surgical intervention or even medication injection into that area. 3. Throughout the abdomen and pelvis there is no sign of abscess formation. Colonic obstipation is present bilaterally. 4. There is an unusual appearance of the pancreas where the glandular parenchyma is virtually entirely omentum or sized into fat. The pancreatic duct is prominently distended at 1 cm through the pancreatic body and tail, secondary to a large ovoid calculus measuring up to 1.2 x 2.1 cm. Through the pancreatic tail 2 separate cystic structures can be seen, relatively small in size and likely sidebranch dilatations of the pancreatic ducts. This area could be easily followed by noncontrast CT scanning to assess for chart changer time. Gastroenterology consultation may be warranted given the large pancreatic ductal calculus identified. Dictated by: Claude Mulligan M.D. on 12/17/2016 at 10:12 Ultrasound of abdomen on 12/19/2016: IMPRESSION: Findings likely reflect calculus in the region of the pancreatic head with associated pancreatic duct dilatation. This would correlate with the findings on a recent MRI dated yesterday, please see report. Normal appearance of the gallbladder. No free fluid. Dictated by: Stanford Desouza M.D. on 12/19/2016 at 19:50 Additional Diagnostics ABG DateTimeAnalyzed 05:05:00 -_ pH ____7.372 - pCO2 ___37.7__ -mmHg pO2 ___40.8__ -mmHg HCO3- ___21.4__ -mmol/L NM HIDA SCAN WITH CCK IMPRESSION: 1. Gallbladder ejection fraction 20.5% which is less than the normal value of 35 %. These findings suggest gallbladder dyskinesis. Dictated by: Sapphire Hernández M.D. on 12/20/2016 at 17:04 US ABDOMEN, LIMITED IMPRESSION: Findings likely reflect calculus in the region of the pancreatic head with associated pancreatic duct dilatation. This would correlate with the findings on a recent MRI dated yesterday, please see report. Normal appearance of the gallbladder. No free fluid. Dictated by: Stanford Desouza M.D. on 12/19/2016 at 19:50 [facility] DateTimeAnalyzed 10:17:00 -_ pH ____7.197 - 7.350 7.450 pCO2 ___21.3__ -mmHg 35.0 45.0 pO2 102 -mmHg 69.0 116 HCO3- ____8.0__ -mmol/L 22.0 26.0 US RENAL SONOGRAM IMPRESSION: No evidence for hydronephrosis. Small amount of free fluid in the right upper quadrant of the abdomen. Dictated by: Pete Simms M.D. on 12/18/2016 at 15:29 Assessment & Plan Donna Zuluaga is a 76 year old female with Diabetes, Hypertension, Dyslipidemia and Hypothyroidism who presents to [facility] emergency department with complaints of diffuse abdominal pain and 4 weeks of elevated blood sugars (400-600) at home with no obvious inciting event. #. Diabetic Ketoacidosis. Present on admission. Resolved. - Possibly 2nd to pancreatic burn out or pancreatitis. AG 17 today. Will increase fluids. - C-peptide 0.9. is low (N 1.1-4.4) - ABG as above. - Holding Metformin and Actos - Non-DKA protocol today 40 total units from 8am-5pm with advancement of diet and partial breakfast and lunch. Will start Lantus 10 u overnight. High correctional and nutritional scale. - D/c insulin ggt tonight 2100. #. Acute on Chronic pancreatitis with obstructing pancreatic stone, present on admission. Improved. - Abdominal pain on admission, elevated lipase, CT abdomen as above. MRCP was limited due to motion but showed likely chronic pancreatitis with fatty atrophy with a large calculus at the head of the pancreas with multiple dilated side- branches of the main pancreatic duct. Discussed with Dr. Sadler; this is likely not an acute pancreatitis as there is minimal pain and there is very little viable pancreas left at this point. 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 - IV Dilaudid PRN - Ordered stool trypsin & trypsinogen and stool pancreatic elastase - RUQ US as above. - HIDA scan gall bladder dyskinesis. - 20% (Normal 35%) - Advance as tolerated. - Physical therapy daily. - Dr. Sadler of GI has signed off. Recommends follow up with as outpatient for removal/lithotripsy of pancreatic stone. #. Acute Kidney injury on Chronic Kidney disease. Present on admission. Improving. - Baseline Creatinine 1.04-1.11. Chronic issue related to Diabetic nephropathy - ATN 12/20 with FENa 7.45% - Cre 1.99 on admission. BUN 45. currently 2.09 - Acute issue related to pre renal azotemia due to hypovolemia - Avoid Nephrotoxic insults including contrast studies - Nephrology consulting. We appreciate their expertise. - K+ repletion 40 IV - Levy out today. Low UOP today - with bladder scan of 296 mls. #. Septic Shock, present on admission, Resolved. - No clear source of infection identified at this time, however it is possibly pneumonia or atypical. May consider Meningitic sourcel. - Procalcitonin 1.05 12/19. trended down to 0.77 (12/20) - Fungitel, sputum and blood fungal cx negative. - On Meropenem Q12. plan to discontinue in 1-2 days if continues to improve. ( started 12/21) #. Hyperchloremic Metabolic Acidosis, not present on admission, Active. - Fluids off, full liquid diet. #. Thrombocytopenia, not present on admission. Stable and active. - likely consumptive. No sign of disseminated intravascular coagulopathy. - HIT panel negative - Continue Anticoagulation until plt <50. Heparin SQ. - Meropenem. - Peripheral smear pending. #. Lactic acidosis with metabolic acidosis. Present on admission. Resolved. #. Chronic Hypertension, Low range of normal likely due to hypovolemia - holding all antihypertensive at this time #. Hyperlipidemia - continue Simvastatin 10 mg HS #. Hypothyroidism - continue Synthroid 137 mcg daily (70 IV daily), - today will give 137 IV. - TSH and T4 6.670 and 0.71. #. Hypocalcemia, not present on admission. Active. -due to suspected ongoing pancreatitis - Ca 6.8 today corrected 8.7. Acetaminophen for mild pain when necessary. Bowel regimen Senna and MiraLAX scheduled and PRN. Zofran when necessary for nausea and vomiting. SubQ heparin held for now. SCDs in place. High-risk medications: IV insulin IV dilaudid Disposition: Likely here for 2-3 more days. Will be discharged to SNF. Pain Evaluation: Adequate Pain Control VTE Prophylaxis: Sub-Q Heparin (Unfractionated) VTE Mechanical Devices: Intermittant Pneumatic CD Resuscitation Status: CPR: Attempt Resuscitation Attending Statement The patient was seen and examined together with Dr. Daigle on 12/22/2016 and I agree with the history, exam and plan as outlined in the note above. NATHALIA DAIGLE DO Dec 22, 2016 17:56 Jamar Scruggs MD Dec 22, 2016 19:25
[2016-12-22] MEDS ORDERED: Insulin GLARgine 100 Unit/mL Syringe SUBQ SCH (21:00)
[2016-12-22] MEDS: Insulin LISPRO 300 Unit/3 mL Inj SUBQ SCH (22:00)
[2016-12-23] VITALS (8 sets, daily range): BP systolic 116–135; BP diastolic 60–74; PULSE 82–95; RESP 19–26; O2SAT 94–100
--- NOTE | 2016-12-23 00:07 | NUR ---
INSULIN Pt was on an insulin gtt at 2 units/HR. Insulin gtt d/c'd @ 2100 and 10 units of Lantus given. BS rechecked @ 2200 and were 165, no sliding scale given. BS were checked again @ 2345 and were 171. Will continue to monitor blood sugars. No other issues noted at this time.
[2016-12-23 03:51] LABS: BASOPHILS % (AUTO) 0 % (0-3); EOSINOPHILS % (AUTO) 1.3 % (0-5); MONOCYTES % (AUTO) 14.6 % (4-12); Mean Corpuscular Hemoglobin 33.6 pg (27.0-35.0); Mean Corpuscular Volume 99.6 fL (81-100); NEUTROPHILS % (AUTO) 50.4 % (40-74); Platelet Count 86 bil/L (150-400)
[2016-12-23] MEDS: Insulin LISPRO 300 Unit/3 mL Inj SUBQ SCH ×4 (08:00→21:20)
[2016-12-23] MEDS: Senna-Docusate 8.6-50 mg Tablet PO SCH ×2 (09:18→20:30)
[2016-12-23] MEDS: Pantoprazole 4 mg/mL 10 mL Inj IVPUSH SCH (09:18)
[2016-12-23] MEDS: Meropenem Inj 500 MG in 0.9% Sodium Chloride 50 ML IV SCH ×2 (09:19→21:08)
[2016-12-23] MEDS: Nystatin 100,000 Unit/Gm 15 Gm Powder TOPICAL SCH ×2 (09:42→21:12)
--- NOTE | 2016-12-23 10:33 | PCM.PNMED ---
Subjective Date of Service Dec 23, 2016 Subjective Overnight: No acute overnight events. Today: She reports feeling better today but still tired. Continues to be alert and oriented x3. More talkative this morning. Continues to deny abdominal pain, N/V/D, shortness of breath, fevers, chills. Exam Vital Signs Vital Sign - Last Date Time Temp Pulse Resp B/P Pulse Ox O2 Delivery O2 Flow Rate FiO2 12/23/16 08:00 36.8 90 22 135/74 99 Room Air 12/19/16 20:46 21 12/17/16 08:00 1.00 Intake and Output 12/22/16 12/22/16 12/23/16 Cumulative From/Thru 15:00 23:00 07:00 12/17/16 00:25 - 12/23/16 06:46 Intake Total 1622 ml 154 ml 84617 ml Output Total 700 ml 300 ml 93943 ml Balance 922 ml -146 ml 61144 ml Intake Oral 1300 ml 50 ml 2175 ml IV Total 322 ml 104 ml 20455 ml Output Urine Total 700 ml 300 ml 27741 ml # Voids 1 1 # Bowel Movements 1 11 Exam General: Alert, Oriented X3, Cooperative, No acute Distress but appears lethargic and more somnolent since last interview yesterday. Eyes: PERRLA, Scleral Anicteric Mouth: Mouth Normal, Mucous Membranes dry Neck: Supple, no Thyromegaly, trachea central. Chest & Lungs: Clear to auscultation & percussion, No adventitious breath sounds, no crackles, no wheeze Cardiovascular: Normal S1, Normal S2, Systolic murmur present, Regular Rate/ Rhythm, (No JVD, no peripheral edema) Pulses: Radial (present and equal), Dorsalis Pedi (present and equal) Abdomen: Soft, Non-tender, Non-distended, Normoactive bowel tones. Musculoskeletal: Unremarkable. Normal range of motion, no swollen or erythematous joints Extremities: No edema, no cyanosis, no clubbing. Skin: No rashes. Warm and dry, no erythematous areas Neurological: Grossly neurologically intact, has generalized weakness, Normal Speech, Sensation Intact Lymphatic: Lymph nodes Cervical and Axillary not palpable. IVs and Medications Medications Reviewed: Medications were reviewed in detail Lab and Diagnostics Result Diagram: 12/23/16 0325 12/23/16 032 X-Rays, CTs and MRIs MRI ABDOMEN WITHOUT CONTRAST IMPRESSION: 1. Severely limited MRI of the abdomen related to extensive motion artifact. 2. No cholelithiasis. The common bile duct is not dilated. No choledocholithiasis is suspected. 3. Diffuse abnormal appearance of the pancreas is suggestive of chronic pancreatitis with fatty atrophy. Superimposed acute pancreatitis cannot be excluded. 4. Severe dilatation of the body and tail main pancreatic duct probably is related to a large calculus near the head of the pancreas that is either within the pancreatic duct and/or the adjacent soft tissues, subsequently obstructing the upstream portions of the pancreatic duct. This is almost certainly chronic in nature. The calculus was much better appreciated on the prior CT from . Multiple dilated sidebranches of the main pancreatic duct are also present with multiple cystic foci. While the ductal dilatation is mostly likely explained by a large distal intraluminal calculus, the possibility of an intra- papillary mucinous neoplasm cannot be excluded on the basis of this examination and followup abdominal imaging with contrast is recommended in [address] or MRI. 5. Fluid filled prominent small bowel loops are suggestive of ileus. 6. Mesenteric edema and ascites. 7. Small bilateral pleural effusions and associated atelectasis are new since . Dictated by: Kit Joshi M.D. on 12/18/2016 at 13:07 CT Abd / Pelvis Interpretation Conclusion: Bubbles of air in the anterior abdominal wall and adjacent extra peritoneal tissues. This could be related to recent subcutaneous injections or other instrumentation. Please correlate clinically. No abscess in the soft tissues. Bowel pattern possibly consistent with constipation. Focally dilated distal pancreatic duct versus cystic lesion in the tail of the pancreas. Other findings as noted above. Study type: Abdominal CT no contrast Read by [facility] radiologist CT ABDOMEN AND PELVIS WITHOUT CONTRAST ABDOMEN: The pancreas is quite abnormal, with the glandular parenchyma virtually completely fatty atrophied. The pancreatic duct from the pancreatic neck towards the pancreatic tail is abnormally dilated measuring up to 1.1 cm in maximal dimension associated with a large dense calculus within the pancreatic duct at the pancreatic neck level measuring up to 1.2 cm AP and 2.1 cm transverse. This has a radiodensity of 1666 Hounsfield units. At the pancreatic tail there is a 1.3 and 2.0 cm set of cystic structures in the expected course of the pancreatic duct. Peritoneum and bowel: Unenhanced bowel loops demonstrate normal wall thickness and caliber. No free fluid. There may be a slight amount of free air at the anterior border of the midline of the abdomen/pelvis junction, above the umbilicus, where within the rectus sheath in the immediate adjacent subcutaneous fat several gas bubbles can be seen and at one point a communication between what appears to be in the anterior peritoneal gas bubble and the subcutaneous fat may be present (centered on series 2, image 53). IMPRESSION: 1. The study is significantly limited in anatomic detail by the absence of oral and intravenous contrast. With this qualification no definite underlying malignancy is seen. No definite focus of infection is found. 2. There is an unusual finding of several gas bubbles within the subcutaneous fat and the rectus sheath of the low abdomen/pelvis junction area, with possible small bubble of gas within the peritoneal space immediately adjacent. Please correlate for whether some form of lacerating injury has occurred in this area, versus surgical intervention or even medication injection into that area. 3. Throughout the abdomen and pelvis there is no sign of abscess formation. Colonic obstipation is present bilaterally. 4. There is an unusual appearance of the pancreas where the glandular parenchyma is virtually entirely omentum or sized into fat. The pancreatic duct is prominently distended at 1 cm through the pancreatic body and tail, secondary to a large ovoid calculus measuring up to 1.2 x 2.1 cm. Through the pancreatic tail 2 separate cystic structures can be seen, relatively small in size and likely sidebranch dilatations of the pancreatic ducts. This area could be easily followed by noncontrast CT scanning to assess for post exchange manager time. Gastroenterology consultation may be warranted given the large pancreatic ductal calculus identified. Dictated by: Claude Mulligan M.D. on 12/17/2016 at 10:12 Ultrasound of abdomen on 12/19/2016: IMPRESSION: Findings likely reflect calculus in the region of the pancreatic head with associated pancreatic duct dilatation. This would correlate with the findings on a recent MRI dated yesterday, please see report. Normal appearance of the gallbladder. No free fluid. Dictated by: Stanford Desouza M.D. on 12/19/2016 at 19:50 Additional Diagnostics ABG DateTimeAnalyzed 05:05:00 -_ pH ____7.372 - pCO2 ___37.7__ -mmHg pO2 ___40.8__ -mmHg HCO3- ___21.4__ -mmol/L NM HIDA SCAN WITH CCK IMPRESSION: 1. Gallbladder ejection fraction 20.5% which is less than the normal value of 35 %. These findings suggest gallbladder dyskinesis. Dictated by: Sapphire Hernández M.D. on 12/20/2016 at 17:04 US ABDOMEN, LIMITED IMPRESSION: Findings likely reflect calculus in the region of the pancreatic head with associated pancreatic duct dilatation. This would correlate with the findings on a recent MRI dated yesterday, please see report. Normal appearance of the gallbladder. No free fluid. Dictated by: Stanford Desouza M.D. on 12/19/2016 at 19:50 [facility] DateTimeAnalyzed 10:17:00 -_ pH ____7.197 - 7.350 7.450 pCO2 ___21.3__ -mmHg 35.0 45.0 pO2 102 -mmHg 69.0 116 HCO3- ____8.0__ -mmol/L 22.0 26.0 US RENAL SONOGRAM IMPRESSION: No evidence for hydronephrosis. Small amount of free fluid in the right upper quadrant of the abdomen. Dictated by: Pete Simms M.D. on 12/18/2016 at 15:29 Assessment & Plan Donna Zuluaga is a 76 year old female with Diabetes, Hypertension, Dyslipidemia and Hypothyroidism who presents to [facility] emergency department with complaints of diffuse abdominal pain and 4 weeks of elevated blood sugars (400-600) at home with no obvious inciting event. #. Diabetic Ketoacidosis. Present on admission. Resolved. - Possibly 2nd to pancreatic burn out or pancreatitis. AG 17 today. Will increase fluids. - C-peptide 0.9. is low (N 1.1-4.4) - Holding Actos, May not continue Metformin as outpatient. Will follow endocrine as outpatient. - Lantus at 10 u BID with BG ~ 140 this AM> - Remain on High correctional today with increased encouragement to advance diet further. #. Acute on Chronic pancreatitis with obstructing pancreatic stone, present on admission. Improved. - Abdominal pain on admission, elevated lipase, CT abdomen as above. MRCP was limited due to motion but showed likely chronic pancreatitis with fatty atrophy with a large calculus at the head of the pancreas with multiple dilated side- branches of the main pancreatic duct. Discussed with Dr. Sadler; this is likely not an acute pancreatitis as there is minimal pain and there is very little viable pancreas left at this point. 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 - IV Dilaudid PRN - Ordered stool trypsin & trypsinogen and stool pancreatic elastase - RUQ US as above. - HIDA scan gall bladder dyskinesis. - 20% (Normal 35%) - Advance as tolerated. - Physical therapy daily continues to recommend SNF. - Dr. Sadler of GI has signed off. Recommends follow up with as outpatient for removal/lithotripsy of pancreatic stone. #. Acute Kidney injury on Chronic Kidney disease. Present on admission. Improving. - Baseline Creatinine 1.04-1.11. Chronic issue related to Diabetic nephropathy - ATN 12/20 with FENa 7.45% - Cre 1.99 on admission. BUN 45. currently 2.09 - Acute issue related to pre renal azotemia due to hypovolemia - Avoid Nephrotoxic insults including contrast studies - Nephrology consulting. We appreciate their expertise. - K+ repletion 40 IV - Low volume void yesterday but improvement of Creatinine to 1.49. #. Septic Shock, present on admission, Resolved. - No clear source of infection identified at this time, however it is possibly pneumonia or atypical. May consider Meningitic sourcel. - Procalcitonin 1.05 12/19. trended down to 0.77 (12/20) - Fungitel, sputum and blood fungal cx negative. - On Meropenem Q12. Likely d/c at the end of the day today. #. Hyperchloremic Metabolic Acidosis, not present on admission, Active. - Fluids off, full liquid diet. #. Thrombocytopenia, not present on admission. Stable and active. - likely consumptive. No sign of disseminated intravascular coagulopathy. - HIT panel negative - Continue Anticoagulation until plt <50. Heparin SQ. - Meropenem. - Peripheral smear pending. #. Lactic acidosis with metabolic acidosis. Present on admission. Resolved. #. Chronic Hypertension, Low range of normal likely due to hypovolemia - holding all antihypertensive at this time #. Hyperlipidemia - continue Simvastatin 10 mg HS #. Hypothyroidism - continue Synthroid 137 mcg daily (70 IV daily), - TSH and T4 6.670 and 0.71. #. Hypocalcemia, not present on admission. Active. -due to suspected ongoing pancreatitis - Ca 6.8 today corrected 8.7. Acetaminophen for mild pain when necessary. Bowel regimen Senna and MiraLAX scheduled and PRN. Zofran when necessary for nausea and vomiting. SubQ heparin held for now. SCDs in place. High-risk medications: IV insulin IV dilaudid Disposition: Likely here for 1-2 more days. Highly recommend d/c to SNF, however patients daughter insists she is caregiver and can manage with home health... Pain Evaluation: Adequate Pain Control VTE Prophylaxis: Sub-Q Heparin (Unfractionated) VTE Mechanical Devices: Intermittant Pneumatic CD Resuscitation Status: CPR: Attempt Resuscitation Attending Statement The patient was seen and examined together with Dr. Daigle on 12/23/2016 and I agree with the history, exam and plan as outlined in the note above. NATHALIA DAIGLE DO Dec 23, 2016 10:33 Jamar Scruggs MD Dec 23, 2016 15:52
--- NOTE | 2016-12-23 15:33 | NUR ---
NUTRITION FOLLOW UP ASSESS: 76 YO F admitted to CCU with acute abdominal pain and DKA. She was found to have acute gallstone pancreatitis with a chronic obstructing stone in the pancreatic duct. GI does not believe acute intervention is required at this time. C. Diff negative. Pt states her appetite has improved. Per MD, diet to advance as tolerated by pt. PMHx: Vitamin D deficiency, hypothyroidism, dyslipidemia, type 2 diabetes, CKD, HTN, osteopenia. DIET: Full liquid, 25-90% LABS: Reviewed. Cl 109, Cr 1.49, Glu 137, Ca 6.8, Albumin 2.6 MEDICATIONS: Reviewed. Insulin GI: BM x 1 3/3 SKIN: John 17 ANTHROPOMETRICS: Current Wt: 72.3 kg, BMI: 31.1 kg/m2. IBW: 45.5 kg, Admit wt: 59.5 kg. ESTIMATED NEEDS: BMI Calories: 3067-3803 kcal/day (22-25 kcal/kg BW) Protein: 55-70g/day (1.2-1.5 g/kg BW) NUTRITION DIAGNOSIS: 1) Altered nutrition-related labs related to hyperglycemia, DKA, as evidenced by glucose 358, A1c 15.5.---PERSISTS. 2) Inadequate oral intake related to decreased ability to consume sufficient energy as evidenced by current NPO status.---IMPROVING INTERVENTION: 1) Will send Gelatein BID 2) Diabetic diet education provided 3/3 MONITOR/EVALUATE: PO intake, wt, DM ed, labs, GI, nutrition status. Follow per moderate nutrition risk guidelines.
[2016-12-23] MEDS ORDERED: 0.9% Sodium Chloride 250 ML ONE (15:35)
--- NOTE | 2016-12-23 18:42 | NUR ---
Conversation with Daughter Her daughter Nory called a couple times today wanting updates. Gave her updates (after getting permission from the patient) and then transferred her into the patient's room so the patient's could talk to her. Nory said she would like to speak to a Doctor tomorrow morning to get further updates and discuss possible outpatient care at [facility]. Care continues.
[2016-12-23] MEDS: Insulin GLARgine 100 Unit/mL Syringe SUBQ SCH (21:16)
[2016-12-24] VITALS (8 sets, daily range): BP systolic 118–147; BP diastolic 59–74; PULSE 87–95; RESP 18–23; O2SAT 98–100
[2016-12-24 04:08] LABS: BASOPHILS % (AUTO) 0 % (0-3); EOSINOPHILS % (AUTO) 1.6 % (0-5); MONOCYTES % (AUTO) 11.5 % (4-12); Mean Corpuscular Hemoglobin 33.9 pg (27.0-35.0); NEUTROPHILS % (AUTO) 51.1 % (40-74); Platelet Count 82 bil/L (150-400)
--- NOTE | 2016-12-24 07:25 | NUR ---
Mentation/Restful Night Pt denied pain throughout night, seemed rather sleepy but was easy to wake, followed commands and call light appropriate with needs. Pt A&Ox3, LYN. Q2 turns encouraged and pt mostly compliant. Overall pt appeared to sleep comfortably and voiced desire to sleep, care clustered when possible. Tele SR 80s-90s, vitals stable. Last blood sugar 125
[2016-12-24] MEDS: Insulin LISPRO 300 Unit/3 mL Inj SUBQ SCH ×4 (08:00→21:52)
[2016-12-24] MEDS: Pantoprazole 4 mg/mL 10 mL Inj IVPUSH SCH (09:13)
[2016-12-24] MEDS: Insulin GLARgine 100 Unit/mL Syringe SUBQ SCH ×2 (09:13→21:50)
[2016-12-24] MEDS: Meropenem Inj 500 MG in 0.9% Sodium Chloride 50 ML IV SCH ×2 (09:13→21:43)
[2016-12-24] MEDS: Senna-Docusate 8.6-50 mg Tablet PO SCH ×2 (09:13→20:30)
[2016-12-24] MEDS: Nystatin 100,000 Unit/Gm 15 Gm Powder TOPICAL SCH ×2 (09:19→21:44)
--- NOTE | 2016-12-24 12:39 | PCM.PNMED ---
Subjective Date of Service Dec 24, 2016 Subjective Overnight: No acute overnight events. Today: She reports feeling better today but still tired. Continues to be alert and oriented x3. More talkative this morning. Continues to deny abdominal pain, N/V/D, shortness of breath, fevers, chills. Walks 5 steps till she is completely tired and states she cannot go any further. Exam Vital Signs Vital Sign - Last Date Time Temp Pulse Resp B/P Pulse Ox O2 Delivery O2 Flow Rate FiO2 12/24/16 11:59 Room Air 12/24/16 11:54 36.9 95 19 136/69 98 12/19/16 20:46 21 Intake and Output 12/23/16 12/23/16 12/24/16 Cumulative From/Thru 15:00 23:00 07:00 12/17/16 00:25 - 12/24/16 05:00 Intake Total 1718 ml 250 ml 28219 ml Output Total 700 ml 1150 ml 17836 ml Balance 1018 ml -900 ml 06845 ml Intake Oral 1617 ml 250 ml 4042 ml IV Total 101 ml 04922 ml Output Urine Total 700 ml 1150 ml 79608 ml # Voids 1 2 # Bowel Movements 1 12 Exam General: Alert, Oriented X3, Cooperative, No acute Distress. Awake and tolerating PO intake. Eyes: PERRLA, Scleral Anicteric Mouth: Mouth Normal, Mucous Membranes dry Neck: Supple, no Thyromegaly, trachea central. Chest & Lungs: Clear to auscultation & percussion, No adventitious breath sounds, no crackles, no wheeze Cardiovascular: Normal S1, Normal S2, Systolic murmur present, Regular Rate/ Rhythm, (No JVD, no peripheral edema) Pulses: Radial (present and equal), Dorsalis Pedi (present and equal) Abdomen: Soft, Non-tender, Non-distended, Normoactive bowel tones. Musculoskeletal: Unremarkable. Normal range of motion, no swollen or erythematous joints Extremities: No edema, no cyanosis, no clubbing. Skin: No rashes. Warm and dry, no erythematous areas Neurological: Grossly neurologically intact, has generalized weakness, Normal Speech, Sensation Intact Lymphatic: Lymph nodes Cervical and Axillary not palpable. IVs and Medications Medications Reviewed: Medications were reviewed in detail Lab and Diagnostics Result Diagram: 3/4/17 0400 3/4/17 0400 X-Rays, CTs and MRIs MRI ABDOMEN WITHOUT CONTRAST IMPRESSION: 1. Severely limited MRI of the abdomen related to extensive motion artifact. 2. No cholelithiasis. The common bile duct is not dilated. No choledocholithiasis is suspected. 3. Diffuse abnormal appearance of the pancreas is suggestive of chronic pancreatitis with fatty atrophy. Superimposed acute pancreatitis cannot be excluded. 4. Severe dilatation of the body and tail main pancreatic duct probably is related to a large calculus near the head of the pancreas that is either within the pancreatic duct and/or the adjacent soft tissues, subsequently obstructing the upstream portions of the pancreatic duct. This is almost certainly chronic in nature. The calculus was much better appreciated on the prior CT from . Multiple dilated sidebranches of the main pancreatic duct are also present with multiple cystic foci. While the ductal dilatation is mostly likely explained by a large distal intraluminal calculus, the possibility of an intra- papillary mucinous neoplasm cannot be excluded on the basis of this examination and followup abdominal imaging with contrast is recommended in [address] or MRI. 5. Fluid filled prominent small bowel loops are suggestive of ileus. 6. Mesenteric edema and ascites. 7. Small bilateral pleural effusions and associated atelectasis are new since . Dictated by: Kit Joshi M.D. on 12/18/2016 at 13:07 CT Abd / Pelvis Interpretation Conclusion: Bubbles of air in the anterior abdominal wall and adjacent extra peritoneal tissues. This could be related to recent subcutaneous injections or other instrumentation. Please correlate clinically. No abscess in the soft tissues. Bowel pattern possibly consistent with constipation. Focally dilated distal pancreatic duct versus cystic lesion in the tail of the pancreas. Other findings as noted above. Study type: Abdominal CT no contrast Read by [facility] radiologist CT ABDOMEN AND PELVIS WITHOUT CONTRAST ABDOMEN: The pancreas is quite abnormal, with the glandular parenchyma virtually completely fatty atrophied. The pancreatic duct from the pancreatic neck towards the pancreatic tail is abnormally dilated measuring up to 1.1 cm in maximal dimension associated with a large dense calculus within the pancreatic duct at the pancreatic neck level measuring up to 1.2 cm AP and 2.1 cm transverse. This has a radiodensity of 1666 Hounsfield units. At the pancreatic tail there is a 1.3 and 2.0 cm set of cystic structures in the expected course of the pancreatic duct. Peritoneum and bowel: Unenhanced bowel loops demonstrate normal wall thickness and caliber. No free fluid. There may be a slight amount of free air at the anterior border of the midline of the abdomen/pelvis junction, above the umbilicus, where within the rectus sheath in the immediate adjacent subcutaneous fat several gas bubbles can be seen and at one point a communication between what appears to be in the anterior peritoneal gas bubble and the subcutaneous fat may be present (centered on series 2, image 53). IMPRESSION: 1. The study is significantly limited in anatomic detail by the absence of oral and intravenous contrast. With this qualification no definite underlying malignancy is seen. No definite focus of infection is found. 2. There is an unusual finding of several gas bubbles within the subcutaneous fat and the rectus sheath of the low abdomen/pelvis junction area, with possible small bubble of gas within the peritoneal space immediately adjacent. Please correlate for whether some form of lacerating injury has occurred in this area, versus surgical intervention or even medication injection into that area. 3. Throughout the abdomen and pelvis there is no sign of abscess formation. Colonic obstipation is present bilaterally. 4. There is an unusual appearance of the pancreas where the glandular parenchyma is virtually entirely omentum or sized into fat. The pancreatic duct is prominently distended at 1 cm through the pancreatic body and tail, secondary to a large ovoid calculus measuring up to 1.2 x 2.1 cm. Through the pancreatic tail 2 separate cystic structures can be seen, relatively small in size and likely sidebranch dilatations of the pancreatic ducts. This area could be easily followed by noncontrast CT scanning to assess for foreign exchange position clerk time. Gastroenterology consultation may be warranted given the large pancreatic ductal calculus identified. Dictated by: Claude Mulligan M.D. on 12/17/2016 at 10:12 Ultrasound of abdomen on 12/19/2016: IMPRESSION: Findings likely reflect calculus in the region of the pancreatic head with associated pancreatic duct dilatation. This would correlate with the findings on a recent MRI dated yesterday, please see report. Normal appearance of the gallbladder. No free fluid. Dictated by: Stanford Desouza M.D. on 12/19/2016 at 19:50 Additional Diagnostics ABG DateTimeAnalyzed 05:05:00 -_ pH ____7.372 - pCO2 ___37.7__ -mmHg pO2 ___40.8__ -mmHg HCO3- ___21.4__ -mmol/L NM HIDA SCAN WITH CCK IMPRESSION: 1. Gallbladder ejection fraction 20.5% which is less than the normal value of 35 %. These findings suggest gallbladder dyskinesis. Dictated by: Sapphire Hernández M.D. on 12/20/2016 at 17:04 US ABDOMEN, LIMITED IMPRESSION: Findings likely reflect calculus in the region of the pancreatic head with associated pancreatic duct dilatation. This would correlate with the findings on a recent MRI dated yesterday, please see report. Normal appearance of the gallbladder. No free fluid. Dictated by: Stanford Desouza M.D. on 12/19/2016 at 19:50 [facility] DateTimeAnalyzed 10:17:00 -_ pH ____7.197 - 7.350 7.450 pCO2 ___21.3__ -mmHg 35.0 45.0 pO2 102 -mmHg 69.0 116 HCO3- ____8.0__ -mmol/L 22.0 26.0 US RENAL SONOGRAM IMPRESSION: No evidence for hydronephrosis. Small amount of free fluid in the right upper quadrant of the abdomen. Dictated by: Pete Simms M.D. on 12/18/2016 at 15:29 Assessment & Plan Donna Zuluaga is a 76 year old female with Diabetes, Hypertension, Dyslipidemia and Hypothyroidism who presents to [facility] emergency department with complaints of diffuse abdominal pain and 4 weeks of elevated blood sugars (400-600) at home with no obvious inciting event. #. Diabetic Ketoacidosis. Present on admission. Resolved. - Possibly 2nd to pancreatic burn out or pancreatitis. AG 17 today. Will increase fluids. - C-peptide 0.9. is low (N 1.1-4.4) - Holding Actos, May not continue Metformin as outpatient. Will follow endocrine as outpatient. - Lantus at 10 u BID with BG ~ 143 this AM> - Remain on High correctional today with increased encouragement to advance diet further. #. Acute on Chronic pancreatitis with obstructing pancreatic stone, present on admission. Improved. - Abdominal pain on admission, elevated lipase, CT abdomen as above. MRCP was limited due to motion but showed likely chronic pancreatitis with fatty atrophy with a large calculus at the head of the pancreas with multiple dilated side- branches of the main pancreatic duct. Discussed with Dr. Sadler; this is likely not an acute pancreatitis as there is minimal pain and there is very little viable pancreas left at this point. 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 - IV Dilaudid PRN - Ordered stool trypsin & trypsinogen and stool pancreatic elastase - RUQ US as above. - HIDA scan gall bladder dyskinesis. - 20% (Normal 35%) - Advance as tolerated. - Physical therapy daily continues to recommend SNF. - Dr. Sadler of GI has signed off. Recommends follow up with as outpatient for removal/lithotripsy of pancreatic stone. #. Acute Kidney injury on Chronic Kidney disease. Present on admission. Resolved. - Baseline Creatinine 1.04-1.11. Chronic issue related to Diabetic nephropathy - ATN 12/20 with FENa 7.45% - Cre 1.99 on admission. BUN 45. currently 2.09 - Acute issue related to pre renal azotemia due to hypovolemia - Avoid Nephrotoxic insults including contrast studies - Nephrology consulting. We appreciate their expertise. - K+ repletion 40 IV - Voiding without difficulty. Creatinine to 1.26. #. Septic Shock, present on admission, Resolved. - No clear source of infection identified at this time, however it is possibly pneumonia or atypical. May consider Meningitic sourcel. - Procalcitonin 1.05 12/19. trended down to 0.77 (12/20) - Fungitel, sputum and blood fungal cx negative. - On Meropenem Q12. Likely d/c at the end of the day today. #. Hyperchloremic Metabolic Acidosis, not present on admission, Resolved. - Fluids off, full diet. #. Thrombocytopenia, not present on admission. Stable and active. - likely consumptive. No sign of disseminated intravascular coagulopathy. - HIT panel negative - Continue Anticoagulation until plt <50. Heparin SQ. - Meropenem. - Peripheral smear pending. #. Lactic acidosis with metabolic acidosis. Present on admission. Resolved. #. Chronic Hypertension, Low range of normal likely due to hypovolemia - holding all antihypertensive at this time #. Hyperlipidemia - continue Simvastatin 10 mg HS #. Hypothyroidism - continue Synthroid 137 mcg daily (70 IV daily), - TSH and T4 6.670 and 0.71. #. Hypocalcemia, not present on admission. Active. -due to suspected ongoing pancreatitis - Ca 6.8 today corrected 8.7. Acetaminophen for mild pain when necessary. Bowel regimen Senna and MiraLAX scheduled and PRN. Zofran when necessary for nausea and vomiting. SubQ heparin held for now. SCDs in place. High-risk medications: IV insulin IV dilaudid Disposition: Likely here for 1 more day. Highly recommend d/c to SNF, patients daughter will visit today and make a more informed decision regarding home vs. SNF. Pain Evaluation: Adequate Pain Control VTE Prophylaxis: Sub-Q Heparin (Unfractionated) VTE Mechanical Devices: Intermittant Pneumatic CD Resuscitation Status: CPR: Attempt Resuscitation Attending Statement The patient was seen and examined together with Dr. Daigle on 12/24/2016 and I agree with the history, exam and plan as outlined in the note above. NATHALIA DAIGLE DO Dec 24, 2016 12:39 Jamar Scruggs MD Dec 24, 2016 16:25
--- NOTE | 2016-12-24 16:45 | NUR ---
Activity Physical Therapy stated they attempted to work with her this morning. She was encouraged to scoot herself to the edge of the bed and began to with a fair amount of strength, but half way through she just stopped and said something about being too weak and that she "couldn't" do the rest on her own. The Physical Therapist said he helped her the rest of the way to the edge of the bed with minimal assistance. Once sitting she complained of feeling dizzy and continued to state she had dizziness for the next five minutes. Her blood pressure fluctuated slightly between systolic 140s when lying down and 130s when sitting. Because she was still dizzy she was placed back into bed. A little later the doctor stated he wanted Physical Therapy to try and stand her even if she complained of some dizziness. PT worked with her again and she stood and walked about 5 feet without complaining of dizziness. PT said she had a fairly decent gait and was encouraged to walker further, but she said she was too tired and wanted to go back to bed. aware and is discussing discharge care options such as a detention facility with the patient and her family. Care continues.
[2016-12-25 03:15] VITALS: BP 136/68; PULSE 91; RESP 20; O2SAT 99
[2016-12-25 03:37] LABS: BASOPHILS % (AUTO) 0.4 % (0-3); EOSINOPHILS % (AUTO) 0.8 % (0-5); MONOCYTES % (AUTO) 10.7 % (4-12); Mean Corpuscular Hemoglobin 34.3 pg (27.0-35.0); Mean Corpuscular Volume 102.4 fL (81-100); NEUTROPHILS % (AUTO) 51.9 % (40-74); Platelet Count 93 bil/L (150-400)
[2016-12-25 05:33] VITALS: PULSE 93
[2016-12-25] MEDS: Insulin LISPRO 300 Unit/3 mL Inj SUBQ SCH ×2 (08:00→12:36)
--- NOTE | 2016-12-25 08:00 | NUR ---
Restful Night Pt had no c/o pain overnight, easily tires but turns well for assessment and to use bedpan. Tele SR 80s-90s, vitals stable. Care interventions clustered to promote sleep.
[2016-12-25] MEDS: Senna-Docusate 8.6-50 mg Tablet PO SCH (08:30)
[2016-12-25 08:39] VITALS: BP 143/83; PULSE 100; RESP 22; O2SAT 97
[2016-12-25] MEDS: Pantoprazole 4 mg/mL 10 mL Inj IVPUSH SCH (08:53)
[2016-12-25] MEDS: Nystatin 100,000 Unit/Gm 15 Gm Powder TOPICAL SCH (08:54)
[2016-12-25] MEDS: Insulin GLARgine 100 Unit/mL Syringe SUBQ SCH (08:54)
[2016-12-25 09:57] VITALS: PULSE 96
[2016-12-25 10:45] LABS: Magnesium 1.5 mg/dL (1.6-2.6); Phosphorus 2.6 mg/dL (2.5-4.9)
[2016-12-25] MEDS: Meropenem Inj 500 MG in 0.9% Sodium Chloride 50 ML IV SCH (11:03)
[2016-12-25 12:23] VITALS: BP 128/63; PULSE 94; RESP 20; O2SAT 97
--- NOTE | 2016-12-25 12:39 | NUR ---
[facility] signed
--- NOTE | 2016-12-25 12:39 | NUR ---
Social Work: Discharge Data and Assessment; Concrete [employer] Molder spoke with patient's daughter, Loulou Ruano [phone], and notified her that patient was accepted to [facility]. Patient daughter voiced understanding and was in agreement with the patient transferring to [facility]. Concrete [employer] Molder met with patient at bedside and notified her that [facility] accepted her and that transportation was scheduled for 2pm. she voiced understanding and was in agreement. Plan: patient will discharge to [facility] via cabulance at 2p.m. SW will continue to follow. Bianca Acosta, JOHNSON, ACM
--- NOTE | 2016-12-25 12:40 | PCM.DIMED ---
Discharge Instructions Date of Service Dec 25, 2016 Dates of Hospitalization Dec 17, 2016 at 03:05 Discharge Diagnosis Discharge Diagnosis #. Diabetic Ketoacidosis. Present on admission. Resolved. - Possibly 2nd to pancreatic burn out or pancreatitis. AG 17 today. Will increase fluids. - Continue Lantus at 10 u twice daily -check your blood sugars 3 times a day until her readings are more consistent and stable #. Acute on Chronic pancreatitis with obstructing pancreatic stone, present on admission. Improved. Please get referral to [facility] or any tertiary hospital and follow up as outpatient for removal/lithotripsy of pancreatic stone. #. Acute Kidney injury on Chronic Kidney disease. Present on admission. Improving due to DKA #. Septic Shock, present on admission, Resolved. -Unclear source probably from pancreatitis. -Completed antibiotics( initially Zosyn and then meropenem) #. Hyperchloremic Metabolic Acidosis, not present on admission, Resolved. #. Thrombocytopenia, not present on admission. Stable and active. #. Lactic acidosis with metabolic acidosis. Present on admission. Resolved. #. Chronic Hypertension, #. Hyperlipidemia #. Hypothyroidism #. Hypocalcemia, not present on admission. improved -due to suspected pancreatitis Diet Low fat, Low Sodium, Diabetic Activity Other (continue physical [facility] at [facility]) Call your provider Fever or Chills, Shortness of breath, Bleeding, Chest pain, Vomitting, Excessive diarrhea, Weakness (unilateral) Patient Instructions You were hospitalized due to DKA/uncontrolled blood sugar. We have stopped your Actos and metformin. Your insulin requirement seems to be Lantus 10 unit twice daily. Please check blood glucose 3 times daily for the next few weeks until the blood sugar readings are stable and consistent. You also had pancreatic duct stone with suspected pancreatitis. Dr Sadler community health planning director consulted community health planning director at [facility] and they recommend he follow-up with [facility] or other referral hospital for stone extraction/ lithotripsy. Please [facility] physical [facility] for deconditioning. Follow-up plan Please follow-up with Dr Ureña at [facility] in 1 week. Please follow-up with PCP 1 week after discharge from [facility]. Given referral to [facility]ca Mcadams for pancreatic stone. You may also follow with community health planning director at [facility] Dr. Sadler until you are seen by Bianca Mcadams. Follow-up Provider: Radha Flynn PA-C Follow-up with PCP in: 3 weeks Provider: July Ureña MD Follow-up in: 1 week Mid-level Provider (F9): Jani Sadler MD Follow-up with Mid-level in: 3 weeks Jamar Scruggs MD Dec 25, 2016 12:40
[2016-12-25] MEDS ORDERED: LEVO137T24 PO (12:42)
[2016-12-25] MEDS ORDERED: INSU100V7 SUBQ (12:42)
--- NOTE | 2016-12-25 13:00 | PCM.DC.MED ---
Discharge Summary Date of Service Dec 25, 2016 Dates of Hospitalization Date of Hospital Admission Dec 17, 2016 at 03:05 Date of Discharge: Dec 25, 2016 Providers: Admitting Physician: Rodolfo Murray MD Primary Care Physician: Radha Flynn PA-C Attending Physician: Rodolfo Murray MD Diagnosis at Time of Discharge Diagnosis at Time of Discharge #. Diabetic Ketoacidosis. Present on admission. Resolved. - Possibly 2nd to pancreatic burn out or pancreatitis. AG 17 today. Will increase fluids. - Continue Lantus at 10 u twice daily -check your blood sugars 3 times a day until her readings are more consistent and stable #. Acute on Chronic pancreatitis with obstructing pancreatic stone, present on admission. Improved. Please get referral to [facility] or any tertiary hospital and follow up as outpatient for removal/lithotripsy of pancreatic stone. #. Acute Kidney injury on Chronic Kidney disease. Present on admission. Improving due to DKA #. Septic Shock, present on admission, Resolved. -Unclear source probably from pancreatitis. -Completed antibiotics( initially Zosyn and then meropenem) #. Hyperchloremic Metabolic Acidosis, not present on admission, Resolved. #. Thrombocytopenia, not present on admission. Stable and active. #. Lactic acidosis with metabolic acidosis. Present on admission. Resolved. #. Chronic Hypertension, #. Hyperlipidemia #. Hypothyroidism #. Hypocalcemia, not present on admission. improved -due to suspected pancreatitis Consultations damage appraiser Dr Coleman GI Dr Sadler nephrology Dr Bains Procedures XRay, CTs & MRIs MRI ABDOMEN WITHOUT CONTRAST IMPRESSION: 1. Severely limited MRI of the abdomen related to extensive motion artifact. 2. No cholelithiasis. The common bile duct is not dilated. No choledocholithiasis is suspected. 3. Diffuse abnormal appearance of the pancreas is suggestive of chronic pancreatitis with fatty atrophy. Superimposed acute pancreatitis cannot be excluded. 4. Severe dilatation of the body and tail main pancreatic duct probably is related to a large calculus near the head of the pancreas that is either within the pancreatic duct and/or the adjacent soft tissues, subsequently obstructing the upstream portions of the pancreatic duct. This is almost certainly chronic in nature. The calculus was much better appreciated on the prior CT from . Multiple dilated sidebranches of the main pancreatic duct are also present with multiple cystic foci. While the ductal dilatation is mostly likely explained by a large distal intraluminal calculus, the possibility of an intra- papillary mucinous neoplasm cannot be excluded on the basis of this examination and followup abdominal imaging with contrast is recommended in [address] or MRI. 5. Fluid filled prominent small bowel loops are suggestive of ileus. 6. Mesenteric edema and ascites. 7. Small bilateral pleural effusions and associated atelectasis are new since . Dictated by: Kit Joshi M.D. on 12/18/2016 at 13:07 CT Abd / Pelvis Interpretation Conclusion: Bubbles of air in the anterior abdominal wall and adjacent extra peritoneal tissues. This could be related to recent subcutaneous injections or other instrumentation. Please correlate clinically. No abscess in the soft tissues. Bowel pattern possibly consistent with constipation. Focally dilated distal pancreatic duct versus cystic lesion in the tail of the pancreas. Other findings as noted above. Study type: Abdominal CT no contrast Read by [facility] radiologist CT ABDOMEN AND PELVIS WITHOUT CONTRAST ABDOMEN: The pancreas is quite abnormal, with the glandular parenchyma virtually completely fatty atrophied. The pancreatic duct from the pancreatic neck towards the pancreatic tail is abnormally dilated measuring up to 1.1 cm in maximal dimension associated with a large dense calculus within the pancreatic duct at the pancreatic neck level measuring up to 1.2 cm AP and 2.1 cm transverse. This has a radiodensity of 1666 Hounsfield units. At the pancreatic tail there is a 1.3 and 2.0 cm set of cystic structures in the expected course of the pancreatic duct. Peritoneum and bowel: Unenhanced bowel loops demonstrate normal wall thickness and caliber. No free fluid. There may be a slight amount of free air at the anterior border of the midline of the abdomen/pelvis junction, above the umbilicus, where within the rectus sheath in the immediate adjacent subcutaneous fat several gas bubbles can be seen and at one point a communication between what appears to be in the anterior peritoneal gas bubble and the subcutaneous fat may be present (centered on series 2, image 53). IMPRESSION: 1. The study is significantly limited in anatomic detail by the absence of oral and intravenous contrast. With this qualification no definite underlying malignancy is seen. No definite focus of infection is found. 2. There is an unusual finding of several gas bubbles within the subcutaneous fat and the rectus sheath of the low abdomen/pelvis junction area, with possible small bubble of gas within the peritoneal space immediately adjacent. Please correlate for whether some form of lacerating injury has occurred in this area, versus surgical intervention or even medication injection into that area. 3. Throughout the abdomen and pelvis there is no sign of abscess formation. Colonic obstipation is present bilaterally. 4. There is an unusual appearance of the pancreas where the glandular parenchyma is virtually entirely omentum or sized into fat. The pancreatic duct is prominently distended at 1 cm through the pancreatic body and tail, secondary to a large ovoid calculus measuring up to 1.2 x 2.1 cm. Through the pancreatic tail 2 separate cystic structures can be seen, relatively small in size and likely sidebranch dilatations of the pancreatic ducts. This area could be easily followed by noncontrast CT scanning to assess for tire changer aircraft time. Gastroenterology consultation may be warranted given the large pancreatic ductal calculus identified. Dictated by: Claude Mulligan M.D. on 12/17/2016 at 10:12 Ultrasound of abdomen on 12/19/2016: IMPRESSION: Findings likely reflect calculus in the region of the pancreatic head with associated pancreatic duct dilatation. This would correlate with the findings on a recent MRI dated yesterday, please see report. Normal appearance of the gallbladder. No free fluid. Dictated by: Stanford Desouza M.D. on 12/19/2016 at 19:50 Cardiac Echo Impression Interpretation Summary The left ventricle is mildly hyperdynamic with the ejection fraction estimated to be 75-80% with a significant dyssynchronous contraction pattern, consistent with a conduction abnormality but no focal wall motion abnormalities. There is normal left ventricular wall thickness and assessment of diastolic parameters indicates a relaxation abnormality of the left ventricle, consistent with normal filling pressures. The right ventricle is normal in size and function. Pulmonary artery pressures cannot be estimated because of the lack of a measurable TR jet velocity. Both atria are normal in size. There is mild mitral regurgitation and mild aortic valve sclerosis with minimal aortic stenosis. There is no other significant valvular heart disease. There is a small left-sided pleural effusion and a small amount of ascites noted. There appears to be a large heterogeneous structure below the diaphragm that is not usually seen. Consider additional imaging studies if clinically indicated. Other Diagnostics ABG DateTimeAnalyzed 05:05:00 -_ pH ____7.372 - pCO2 ___37.7__ -mmHg pO2 ___40.8__ -mmHg HCO3- ___21.4__ -mmol/L NM HIDA SCAN WITH CCK IMPRESSION: 1. Gallbladder ejection fraction 20.5% which is less than the normal value of 35 %. These findings suggest gallbladder dyskinesis. Dictated by: Sapphire Hernández M.D. on 12/20/2016 at 17:04 US ABDOMEN, LIMITED IMPRESSION: Findings likely reflect calculus in the region of the pancreatic head with associated pancreatic duct dilatation. This would correlate with the findings on a recent MRI dated yesterday, please see report. Normal appearance of the gallbladder. No free fluid. Dictated by: Stanford Desouza M.D. on 12/19/2016 at 19:50 [facility] DateTimeAnalyzed 10:17:00 -_ pH ____7.197 - 7.350 7.450 pCO2 ___21.3__ -mmHg 35.0 45.0 pO2 102 -mmHg 69.0 116 HCO3- ____8.0__ -mmol/L 22.0 26.0 US RENAL SONOGRAM IMPRESSION: No evidence for hydronephrosis. Small amount of free fluid in the right upper quadrant of the abdomen. Dictated by: Pete Simms M.D. on 12/18/2016 at 15:29 Brief History as per HPI performed by Dr Murray 12/17/16 Donna Zuluaga is a 76 year old female with Diabetes, Hypertension, Dyslipidemia and Hypothyroidism who presents to [facility] emergency department with complaints of abdominal pain. Patient reporting the abdominal pain is diffuse that started around 2300 this evening. No radiation and no associated symptoms such as diarrhea, no nausea or vomiting. She barely ate anything in the last 3 days. No fever or chills. Patient was notes to have some confusion and lethargy, sleeping much of the day today. She reports that she was at [facility] yesterday for elevated blood sugar, but she was asymptomatic at the time. Pt states that she is having some nausea associated with the abdominal pain, but denies any vomiting, diarrhea. Records from [facility] reviewed, showed patient has been having uncontrolled blood sugars since the beginning of November with BG up to 500 range. Medications were changed with insulin dosing increased after her meals as well as adding Actos. Daughter who lives with the patient reports that the patient manages her own insulin and is compliant without missing any doses. Case discussed with Dr Sierra, IV fluids and CT scan without contrast ordered due to complaints and lactic acidosis noted. IV fluids and Insulin drip also initiated for DKA treatment Hospital Course Donna Zuluaga is a 76 year old female with Diabetes, Hypertension, Dyslipidemia and Hypothyroidism who presents to [facility] emergency department with complaints of diffuse abdominal pain and 4 weeks of elevated blood sugars (400-600) at home with no obvious inciting event. #. Diabetic Ketoacidosis. Present on admission. Resolved. - Possibly 2nd to pancreatic burn out or pancreatitis. AG 17 today. Will increase fluids. - C-peptide 0.9. is low (N 1.1-4.4) -Discontinue Actos and Metformin upon discharge. May need to follow endocrine as outpatient given labile blood sugars and insulin requirement. -discharge on Lantus at 10 u BID . Advised to check 3 times a day for the nest few weeks. - Remain on High correctional today with increased encouragement to advance diet further. #. Acute on Chronic pancreatitis with obstructing pancreatic stone, present on admission. Improved. - Abdominal pain on admission, elevated lipase, CT abdomen as above. MRCP was limited due to motion but showed likely chronic pancreatitis with fatty atrophy with a large calculus at the head of the pancreas with multiple dilated side- branches of the main pancreatic duct. Discussed with Dr. Sadler; this is likely not an acute pancreatitis as there is minimal pain and there is very little viable pancreas left at this point. 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 - IV Dilaudid PRN - Ordered stool trypsin & trypsinogen and stool pancreatic elastase. Still pending on day of discharge. - RUQ US as above. - HIDA scan gall bladder dyskinesis. - 20% (Normal 35%) - Dr. Sadler of GI Recommends follow up with as outpatient for removal/ lithotripsy of pancreatic stone. #. Acute Kidney injury on Chronic Kidney disease. Present on admission. Resolved. - Baseline Creatinine 1.04-1.11. Chronic issue related to Diabetic nephropathy - ATN 12/20 with FENa 7.45% - Cre 1.99 on admission. BUN 45. currently 1.29 - Acute issue related to pre renal azotemia due to hypovolemia #. Septic Shock, present on admission, Resolved. - No clear source of infection identified at this time, however it is possibly pneumonia or atypical. May also be due to pancreatitis. - Procalcitonin 1.05 12/19. trended down to 0.77 (12/20) - Fungitel, sputum and blood fungal cx negative. - Completed antibiotics. Initially Zosyn and then Meropenem. #. Hyperchloremic Metabolic Acidosis, not present on admission, Resolved. - Fluids off, full diet. #. Thrombocytopenia, not present on admission. Stable and active. - likely consumptive. No sign of disseminated intravascular coagulopathy. - HIT panel negative #. Lactic acidosis with metabolic acidosis. Present on admission. Resolved. #. Chronic Hypertension, Low range of normal likely due to hypovolemia -Discontinue losartan upon discharge given recent GEM and blood pressure control without medications. #. Hyperlipidemia - continue Simvastatin 10 mg HS #. Hypothyroidism - continue home dose Synthroid 137 mcg daily - TSH and T4 6.670 and 0.71. #. Hypocalcemia, not present on admission. Improved -due to suspected ongoing pancreatitis - Initial Ca 6.8 today corrected 8.7. Patient has significant deconditioning. She will require aggressive physical therapy. Discharged to [facility] Exam Vital Signs (Last) Date Time Temp Pulse Resp B/P Pulse Ox O2 Delivery O2 Flow Rate FiO2 3/5/17 12:23 36.8 94 20 128/63 97 Room Air 12/19/16 20:46 21 Exam General: Alert, Oriented X3, Cooperative, No acute Distress. Awake and tolerating PO intake. Eyes: PERRLA, Scleral Anicteric Mouth: Mouth Normal, Mucous Membranes dry Neck: Supple, no Thyromegaly, trachea central. Chest & Lungs: Clear to auscultation & percussion, No adventitious breath sounds, no crackles, no wheeze Cardiovascular: Normal S1, Normal S2, Systolic murmur present, Regular Rate/ Rhythm, (No JVD, no peripheral edema) Pulses: Radial (present and equal), Dorsalis Pedi (present and equal) Abdomen: Soft, Non-tender, Non-distended, Normoactive bowel tones. Musculoskeletal: Unremarkable. Normal range of motion, no swollen or erythematous joints Extremities: No edema, no cyanosis, no clubbing. Skin: No rashes. Warm and dry, no erythematous areas Neurological: Grossly neurologically intact, has generalized weakness, Normal Speech, Sensation Intact Lymphatic: Lymph nodes Cervical and Axillary not palpable. Test 12/17/16 00:37 12/17/16 02:30 12/17/16 09:10 12/18/16 09:15 Prothrombin Time 10.2sec (8.1-12.5) Prothromb Time International Ratio 0.95ratio D-Dimer 3.2mg/L (<0.50) Troponin T 0.010ug/L (0.0-0.011) Hemoglobin A1c 15.5% (4.8-5.6) C-Peptide 0.9ng/mL (1.1-4.4) Myelocytes % 1% (0-0) Nucleated Red Blood Cells 1/100 WBC (0-24) Immunoglobulin G Total 465mg/dL (700-1600) Immunoglobulin G1 335mg/dL (422-1292) Immunoglobulin G2 90mg/dL (117-747) Immunoglobulin G3 6mg/dL (41-129) Immunoglobulin G4 25mg/dL (1-291) Test 12/18/16 20:00 12/18/16 21:00 12/19/16 04:40 12/19/16 08:26 Urine Random Total Protein 17mg/dL (0-15) Cortisol 20.3ug/dL (.) Fibrinogen 422mg/dL (157-380) Calcium (Send out) 6.4mg/dL (8.7-10.3) Ionized Calcium 1.10mmol/L (1.17-1.32) Ionized Calcium (Calculated) 3.56mg/dL (3.5-5.2) Parathyroid Hormone Interpretation Comment (.) Total Intact Parathyroid Hormone 148pg/mL (15-65) Heparin-PF4 Ab Optical Density 0.044OD (<0.4) Heparin-PF4 Antibody Interpretation Not indicated Test 12/19/16 14:35 12/19/16 20:29 12/20/16 05:30 12/20/16 10:00 Urine Color Straw (YELLOW) Urine Appearance Slightly cloudy Urine pH 5.0 (5.0-8.0) Urine Specific [place] 1.005 (1.003-1.035) Urine Protein Negativemg/dL (NEG,TRACE) Urine Glucose (UA) Negativemg/dL (NEGATIVE) Urine Ketones Negativemg/dL (NEGATIVE) Urine Occult Blood Small (NEGATIVE) Urine Nitrite Negative (NEGATIVE) Urine Bilirubin Negative (NEGATIVE) Urine Urobilinogen Normalmg/dL (NORMAL) Urine Leukocyte Esterase Negative (NEGATIVE) Urine RBC 0-2/hpf (0-2) Urine WBC 0-5/hpf (0-5) Urine Epithelial Cells Occasional/hpf (NONE-MOD) Urine Crystals Amorphous urates (NONE Urine Bacteria Moderate/hpf (NONE-FEW) Urine Hyaline Casts None/lpf (NONE) Urine Granular Casts Occasional (NONE SEEN) Urine Waxy Casts None seen (NONE SEEN) Urine Red Blood Cell Casts None seen (NONE SEEN) Urine White Blood Cell Casts None seen (NONE SEEN) Urine Mucus None seen (None Seen) Urine Trichomonas None seen (NONE SEEN) Urine Yeast None (NONE SEEN) Urinalysis Comment None Urine Culture Reflexed Indicated Urine Random Creatinine 10mg/dL (15-278) Urine Random Sodium 50mEq/L Urine Random Calcium 0.9mg/dL (Not Estab.) Lactic Acid Level 1.4mmol/L (0.4-2.0) Band Neutrophils % 0% (1-5) Lipase 10U/L (13-60) Thyroid Stimulating Hormone (TSH) 6.670uIU/mL (0.450-4.500) Free Thyroxine 0.71ng/dL (0.82-1.77) Ammonia 26ug/dL (18-53) Fungal Antibodies 48pg/mL (.) Test 12/21/16 03:20 12/25/16 03:23 Procalcitonin 0.48ng/mL (0.00-0.08) White Blood Count 4.9th/mm3 (3.8-10.1) Red Blood Count 2.45mil/mm3 (3.90-5.20) Hemoglobin 8.4g/dL (12.0-15.6) Hematocrit 25.1% (35.0-46.0) Mean Corpuscular Volume 102.4fL (81-100) Mean Corpuscular Hemoglobin 34.3pg (27.0-35.0) Mean Corpuscular Hemoglobin Concent 33.5% (32.0-37.0) Red Cell Distribution Width 14.1% (12.3-15.4) Platelet Count 93bil/L (150-400) Neutrophils (%) (Auto) 51.9% (40-74) Lymphocytes (%) (Auto) 34.6% (14-46) Monocytes (%) (Auto) 10.7% (4-12) Eosinophils (%) (Auto) 0.8% (0-5) Basophils (%) (Auto) 0.4% (0-3) Sodium Level 136mEq/L (134-144) Potassium Level 5.0mEq/L (3.5-5.2) Chloride Level 104mEq/L (97-108) Carbon Dioxide Level 23mmol/L (18-29) Blood Urea Nitrogen 27mg/dL (8-27) Creatinine 1.29mg/dL (0.57-1.00) Estimat Glomerular Filtration Rate 57mL/min (>59) Glucose Level 141mg/dL (60-99) Calcium Level 7.5mg/dL (8.5-10.1) Phosphorus Level 2.6mg/dL (2.5-4.9) Magnesium Level 1.5mg/dL (1.6-2.6) Total Bilirubin 0.2mg/dL (0.0-1.2) Aspartate Amino Transf (AST/SGOT) 22U/L (0-50) Alanine Aminotransferase (ALT/SGPT) 13U/L (0-32) Alkaline Phosphatase 37U/L (25-165) Total Protein 4.6g/dL (6.4-8.4) Albumin 2.7g/dL (3.4-5.0) Discharge Medications Discharge Medications Insulin Glargine (Lantus U100 Insulin Vial) 100 Unit/Ml Vial 10 UNIT SUBQ BID Prescribed by: PAULINO ARANDA MD Levothyroxine (Synthroid) 137 Mcg Tablet 137 MCG PO DAILYAC Prescribed by: PAULINO ARANDA MD Simvastatin (Simvastatin) 5 Mg Tablet 5 MG PO HS (Reported) Followup Plan Disposition: [facility] Follow-up plan Please follow-up with Dr Ureña at [facility] in 1 week. Please follow-up with PCP 1 week after discharge from [facility] facility. Given referral to [facility] for pancreatic stone. You may also follow with psychiatric technician at [facility] Dr. Sadler until you are seen by Bianca Mcadams. Discharge Diet: Low fat, Low Sodium, Diabetic Discharge Activity: Other (continue physical therapy at [facility]) Patient Instructions You were hospitalized due to DKA/uncontrolled blood sugar. We have stopped your Actos and metformin. Your insulin requirement seems to be Lantus 10 unit twice daily. Please check blood glucose 3 times daily for the next few weeks until the blood sugar readings are stable and consistent. You also had pancreatic duct stone with suspected pancreatitis. Dr Sadler psychiatric technician consulted psychiatric technician at [facility] and they recommend he follow-up with [facility] or other referral hospital for stone extraction/ lithotripsy. Please continue physical therapy at [facility] for deconditioning. Follow-up Provider: Radha Flynn PA-C Follow-up with PCP in: 3 weeks Provider: July Ureña MD Follow-up in: 1 week Mid-level Provider: Jani Sadler MD Follow-up with Mid-level in: 3 weeks Time spent 40 minutes coordinating discharge copies to: Jani Sadler MD; Radha Flynn PA-C; July Ureña MD, Melaku MD Dec 25, 2016 13:00
--- NOTE | 2016-12-25 15:10 | NUR ---
Discharge of patient Reviewed discharge instructions to [facility] with patient. Daughter made aware. Both verbalized understanding. Pt discharged via wheelchair with prescriptions and instructions packet given to transport. IV, Triple lumen IJ and telemetry previously discontinued. Pt left hospital with Janet [facility] transport to [facility]. Attempted to call report however no answer, will call again at a later time.
[2016-12-26 10:15] LABS: Pancreatic Elastase, Fecal <50
== END 2016-12-25 14:15 | DRG 871 ==
LOC: SED 00:19 → PCC 03:05 → CCU 03:21 → PCC 12-21 18:54
PROVIDERS: ADMIT Hospitalist; ATTEND Hospitalist
PROC: 02HV33Z Insertion of Infusion Device into Superior Vena Cava, Percutaneous Approach (ICD-10-PCS; principal; 2016-12-17)
PROC: 4A033R1 Measurement of Arterial Saturation, Peripheral, Percutaneous Approach (ICD-10-PCS; 2016-12-17)
DX: A41.9 Sepsis, unspecified organism (principal); K85.90 Acute pancreatitis without necrosis or infection, unspecified; E13.10 Other specified diabetes mellitus with ketoacidosis without coma; R65.21 Severe sepsis with septic shock; N17.0 Acute kidney failure with tubular necrosis; E87.2 Acidosis; K86.1 Other chronic pancreatitis; E11.22 Type 2 diabetes mellitus with diabetic chronic kidney disease; N18.3 Chronic kidney disease, stage 3 (moderate); I12.9 Hypertensive chronic kidney disease with stage 1 through stage 4 chronic kidney disease, or unspecified chronic kidney disease; E78.5 Hyperlipidemia, unspecified; E03.9 Hypothyroidism, unspecified; Z79.4 Long term (current) use of insulin; E88.09 Other disorders of plasma-protein metabolism, not elsewhere classified; E83.51 Hypocalcemia; K86.89 Other specified diseases of pancreas; D69.6 Thrombocytopenia, unspecified

== ENCOUNTER 2017-01-05 01:22 | Day surgery (SDC) | payer MEDICARE, OTHER ==
[~2017-01-05] VITALS: Ht 160 cm; Wt 61.2 kg
[~2017-01-05 01:22] MED LIST: INSU100V7 SUBQ; LEVO137T24 PO; SIMV5TAB7 PO
[2017-01-05] MEDS ORDERED: diphenhydrAMINE 25 mg Capsule PO ONE (08:00)
[2017-01-05 09:55] VITALS: BP 120/60; PULSE 83; RESP 16
[2017-01-05 10:13] VITALS: BP 120/59; PULSE 85; RESP 16
--- NOTE | 2017-01-05 12:43 | NUR ---
Blood glucose Patient's blood glucose [address] Ureña notified. Orders for Novolog.
[2017-01-05] MEDS ORDERED: INSULIN ASPART SUBQ ONE (12:45)
[2017-01-05 13:00] VITALS: BP 123/66; PULSE 80; RESP 16
[2017-01-05] MEDS ORDERED: Insulin LISPRO 300 Unit/3 mL Inj SUBQ ONE (13:15)
[2017-01-05 13:16] VITALS: BP 123/68; PULSE 80; RESP 16
[2017-01-05 15:50] VITALS: BP 122/64; PULSE 80; RESP 16
--- NOTE | 2017-01-05 16:59 | NUR ---
Report Report given to Yovana at [facility].
--- NOTE | 2017-01-05 17:17 | NUR ---
Discharge to [facility] Patient tolerated 2 units of PRBCs. Labs drawn. Up to [facility] with one person assist. Assisted to wheelchair for transport. [facility] transportation here to take patient back to [facility].
== END 2017-01-05 23:59 | disposition home or self-care (01) ==
LOC: MOCO 01:22
PROVIDERS: ATTEND Internal Medicine
DX: D64.9 Anemia, unspecified (principal); E11.65 Type 2 diabetes mellitus with hyperglycemia; Z79.4 Long term (current) use of insulin
CPT/HCPCS: 36415; 36430; 85014; 85018; 86922; J1815; J7050; P9021